=== PATIENT | male | born 1955 | race Caucasian/White ===

== ENCOUNTER 2017-08-24 11:47 | Outpatient (CLI) | payer OTHER ==
--- NOTE | 2017-08-24 15:05 | PET ---
NUCLEAR MEDICINE FDG PET CT: (Positron Emission Tomography) DATE: 08/24/17 HISTORY: 62-year-old male with solitary pulmonary nodule. COMPARISON: No prior PET scans or CTs of the chest are available. TECHNIQUE: IV injection F-18 Fluorodeoxyglucose (FDG) dose: 12.9 mCi. PET and attenuation-correction CT performed from skull base to proximal thighs. FINDINGS: SUV (standard uptake value) numbers given are maximum SUV's: There are sternotomy changes. There is mildly increased uptake in the retrosternal anterior upper med iastinum, posterior to the sternal manubrium and medial to the clavicular heads, with SUV of 2.8. It is presumed that the patient is recently status post open heart surgery, and it is assumed that this represents recent postoperative changes. The 10 mm round noncalcified right lower lobe pulmonary nodule is not hypermetabolic. It has a SUV of 1.0. There is a left pleural effusion that occupies approximately 25% volume of the left hemithorax. There is cardiomegaly. Heavy atherosclerotic calcification of left main, LAD, and LCX. Enlarged mediastina l lymph nodes without increased FDG uptake. Total atelectasis or left lower lobe surrounded by the pl eural effusion. Cholecystectomy clips. Moderate volume of free fluid within the pelvic cavity. Small amount of free fluid along the bilateral paracolic gutters. There is a peritoneal dialysis catheter c oiled within the pelvic cavity. Absent spleen. Rim calcified portion of the left fluid in the left up per quadrant. There is an ill-defined region of broad soft tissue attenuation surrounded by the free fluid at the pelvic inlet, at midline and to the left, with FDG uptakes higher than that of adjacent muscle and bowel, maximum SUV 1.9. It is uncertain whether this represents an inflammatory process que[place] ch as phlegmon, a hematoma, or bowel loops. The peritoneal catheter traverses this. There is no abno rmal FDG avidity in the neck or upper abdominal cavity. IMPRESSION: 1. The 10 mm right lower lobe solitary pulmonary nodule is not FDG-avid. 2. Moderate-sized left pleural effusion associated with total atelectasis of left lower lobe. 3. Coronary atherosclerotic disease. Status post coronary artery bypass graft surgery, probably rece nt. 4. Cardiomegaly. 5. Status post cholecystectomy. 6. Small to moderate volume of ascites. 7. Anasarca. 8. Ill-defined region of minimal FDG avidity within the lower peritoneal cavity (less than 3 SUV0. Nonspecific, and of unknown etiology. 9. Peritoneal dialysis catheter. 10. Status post splenectomy. TOI Kuhn POS: [facility]
== END 2017-08-24 11:48 | disposition home or self-care (01) ==
LOC: PET 11:47
DX: R91.1 Solitary pulmonary nodule (principal); J90 Pleural effusion, not elsewhere classified; R18.8 Other ascites; J98.11 Atelectasis; I51.7 Cardiomegaly; I25.10 Atherosclerotic heart disease of native coronary artery without angina pectoris; Z95.1 Presence of aortocoronary bypass graft; Z90.81 Acquired absence of spleen; Z90.49 Acquired absence of other specified parts of digestive tract; Z99.2 Dependence on renal dialysis
CPT/HCPCS: 78815; A9552

== ENCOUNTER 2018-01-10 14:22 | Emergency (ER) | payer BC, OTHER ==
[2018-01-10 15:08] LABS: #Eosinphils 0.2 thou/uL (0.0-0.7); #Lymphocytes 1.4 thou/uL (1.20-3.40); #Monocytes 0.5 thou/uL (0.11-0.59); #Neutrophils 8.1 thou/uL (1.40-6.50); %Basophils 0.1 % (0.0-1.0); %Eosinophils 1.5 % (0.0-10.0); %Lymphocytes 13.5 % (21.0-51.0); %Monocytes 5.3 % (0.0-10.0); %Neutrophils 79.6 % (42.0-75.0); Hemoglobin 11.8 g/dL (14.0-18.0); Mean Corpuscular HGB CONC 32.2 g/dL (32.0-36.0); Mean Corpuscular Hemoglobin 33.2 pg (27.0-31.0); Platelet Count 235 thou/uL (130-400); RBC Distribution Width 13.2 % (11.5-14.5); Red Blood Cell (RBC) Count 3.56 mill/uL (4.70-6.10); White Blood Cell (WBC) Count 10.1 thou/uL (4.8-10.8)
[2018-01-10 15:33] LABS: ALT (SGPT) 7 U/L (8-55); AST (SGOT) 9 U/L (5-34); Albumin 3.6 g/dL (3.4-4.8); Alkaline Phosphatase 50 U/L (40-150); Anion Gap 17 mmol/L (10-20); BUN (Urea Nitrogen) 64 mg/dL (8.4-25.7); Bilirubin, Total 0.5 mg/dL (0.2-1.2); Calc. Creatinine Clearance 0 mL/min (70-130); Calcium 8.8 mg/dL (7.8-10.44); Carbon Dioxide 22 mmol/L (23-31); Chloride 107 mmol/L (98-107); Estimated GFR-MDRD 7; Globulin 3.5 g/dL (2.4-3.5); Glucose 133 mg/dL (80-115); Lipase 45 U/L (8-78); Potassium 4.3 mmol/L (3.5-5.1); Protein, Total 7.1 g/dL (5.8-8.1); Sodium 142 mmol/L (136-145)
[2018-01-10 16:08] LABS: CKMB 2.4 ng/mL (0-6.6); Troponin I 0.055 ng/mL (< 0.028)
[2018-01-10 16:20] LABS: Magnesium 2.2 mg/dL (1.6-2.6); Phosphorus 6.3 mg/dL (2.3-4.7)
--- NOTE | 2018-01-10 17:29 | RAD ---
AP VIEW CHEST WELL SUPINE AND UPRIGHT VIEWS ABDOMEN: 01/10/18 HISTORY: Hypertension. AP view chest and two views abdomen obtained. Sternotomy wires seen. There is a left sided pleural effusion. Cardiomegaly seen. Pulmonary vascular congestion seen. There is an area of calcified density in the left upper quadrant of the abdomen. This may represent a possible splenic artery aneurysm. Correlate with contrast enhanced CT of the abdomen. Surgical clips seen in the right upper quadrant of the abdomen. The patient has an intraperitoneal dialysis catheter. Vascular calcifications also seen in the pelvis . Changes of spondylosis seen in the lumbar spine. The abdominal gas pattern is unremarkable. No evidence of free intraperitoneal air seen. IMPRESSION: 1. Left sided pleural effusion. 2. Peripherally dense area in the left upper quadrant of the abdomen concerning for possible ane urysm of the splenic artery. Correlate with CT abdomen. POS: [facility]
[2018-01-10] MEDS ORDERED: cloNIDine 0.1 MG TAB ONE (17:45)
[2018-01-10] MEDS ORDERED: Metoclopramide HCl 10 MG/2 ML VIAL ONE (17:45)
[2018-01-10] MEDS ORDERED: Metoclopramide HCl 10 MG TAB ONE (18:23)
[2018-01-10 18:34] LABS: Bilirubin Negative (Negative); Blood, Urine Large (Negative); Clarity CLOUDY (Clear); Glucose, Urine (Dipstick) Negative (Negative); Leukocyte Trace (Negative); Nitrite Negative (Negative); Protein, Urine (Dipstick) 300 mg/dL (Neg-Trace); Specific Gravity, Urine 1.015 (1.002-1.036); Urobilinogen 0.2 mg/dL (0.2-1.0); pH, Urine 5.5 (5.0-9.0)
[2018-01-10 18:42] LABS: Bacteria/HPF None Seen HPF (None Seen); Hyaline Casts/LPF 0-3 HYALINE CAST LPF (0-3 Hyaline); Pathc Cast-AUWi Flag 0.58 (0-2.49); RBC/HPF GREATER THAN 50-TNTC HPF (0-3); Squamous Epithelial 0-3 HPF (0-3)
== END 2018-01-10 18:32 | disposition home or self-care (01) ==
LOC: ERS 14:22
DX: R11.2 Nausea with vomiting, unspecified (principal); E11.9 Type 2 diabetes mellitus without complications; I10 Essential (primary) hypertension; G47.30 Sleep apnea, unspecified; Z79.4 Long term (current) use of insulin; Z79.899 Other long term (current) drug therapy
CPT/HCPCS: 36415; 74022; 80053; 81003; 81015; 82553; 83690; 83735; 83880; 84100; 84484; 85025; 93005; 96374; J2765

== ENCOUNTER 2018-05-29 10:26 | Outpatient (CLI) | payer OTHER ==
--- NOTE | 2018-05-29 11:51 | ULT ---
RENAL ULTRASOUND: Comparison: 02-17-15 History: Hematuria. Technique: Multiplanar grayscale and color doppler images were obtained in a renal ultrasound. FINDINGS: There are anechoic cysts in the left kidney measuring up to 1.8 cm in size. The kidneys demonstrate n ormal cortical echogenicity without hydronephrosis or calculi and measure 11.1 and 10.2 cm in length on the right and left, respectively. Limited visualization of the urinary bladder is unremarkable. Ascites is incidentally seen. IMPRESSION: Left renal cysts. POS: [facility]
== END 2018-05-29 10:27 | disposition home or self-care (01) ==
LOC: BICULT 10:26
PROVIDERS: ATTEND Internal Medicine Nephrology
DX: R31.9 Hematuria, unspecified (principal); N28.1 Cyst of kidney, acquired
CPT/HCPCS: 76770

== ENCOUNTER 2018-07-30 21:12 | Inpatient (IN) | payer OTHER, MEDICARE ==
--- NOTE | 2018-07-30 21:30 | RAD ---
PORTABLE CHEST 1 VIEW 07/30/2018 at 9:16 PM HISTORY: Shortness of breath, dyspnea, patient on dialysis COMPARISON: 04/20/2016 FINDINGS: Changes of median sternotomy are seen. The heart size is prominent. There is an infiltrate at the lef t lung base with accompanying effusion. No pneumothoraces are identified. There is no martha pulmonary edema.
[2018-07-30 21:42] LABS: #Eosinphils 0.1 thou/uL (0.0-0.7); #Lymphocytes 1.5 thou/uL (1.20-3.40); #Monocytes 0.7 thou/uL (0.11-0.59); #Neutrophils 8.5 thou/uL (1.40-6.50); %Eosinophils 0.9 % (0.0-10.0); %Lymphocytes 13.8 % (21.0-51.0); %Monocytes 6.7 % (0.0-10.0); %Neutrophils 78.5 % (42.0-75.0); Hemoglobin 9.6 g/dL (14.0-18.0); Mean Corpuscular HGB CONC 32.3 g/dL (32.0-36.0); Mean Corpuscular Hemoglobin 32.4 pg (27.0-31.0); Mean Platelet Volume 9.7 fL (7.4-10.4); Platelet Count 292 thou/uL (130-400); RBC Distribution Width 12.5 % (11.5-14.5); Red Blood Cell (RBC) Count 2.96 mill/uL (4.70-6.10); White Blood Cell (WBC) Count 10.8 thou/uL (4.8-10.8)
[2018-07-30 22:00] LABS: Anion Gap 17 mmol/L (10-20); BUN (Urea Nitrogen) 47 mg/dL (8.4-25.7); Calc. Creatinine Clearance 0 mL/min (70-130); Calcium 8.5 mg/dL (7.8-10.44); Carbon Dioxide 30 mmol/L (23-31); Chloride 98 mmol/L (98-107); Estimated GFR-MDRD 5; Glucose 128 mg/dL (80-115); Sodium 142 mmol/L (136-145)
[2018-07-30 22:02] LABS: Potassium 2.6 mmol/L (3.5-5.1)
[2018-07-30] MEDS ORDERED: Pot Chloride/Pot Bicarb/Cit Ac 25 mEq Effervescent Tablet ONE (22:14)
[2018-07-30 22:25] LABS: CKMB 3.3 ng/mL (0-6.6)
[2018-07-30] MEDS ORDERED: Azithromycin 500 MG VIAL ONE (23:25)
[2018-07-30] MEDS ORDERED: cefTRIAXone\\ROCEPHIN 2 GM VIAL ONE (23:25)
[2018-07-31] MEDS ORDERED: Aspirin Chewable 81 MG TAB ONE
[2018-07-31] MEDS ORDERED: Ondansetron PF 4 MG/2 ML Vial IVP PRN ×2 (00:44→11:39)
[2018-07-31] MEDS ORDERED: Acetaminophen 325 MG TAB PO PRN ×2 (00:44→11:39)
[2018-07-31] MEDS ORDERED: Ondansetron ODT 4 MG TAB SL PRN (00:44)
[2018-07-31 00:51] LABS: Troponin I 0.249 ng/mL (< 0.028)
[2018-07-31 06:07] LABS: Troponin I 0.236 ng/mL (< 0.028)
[2018-07-31 08:15] LABS: Magnesium 1.2 mg/dL (1.6-2.6)
[2018-07-31 08:24] LABS: Potassium 2.8 mmol/L (3.5-5.1)
[2018-07-31] MEDS ORDERED: Potassium Chloride 20 MEQ TAB PO SCH (08:30)
[2018-07-31] MEDS ORDERED: Epoetin (ESRD) 20,000 UNITS/ML SC SCH (08:45)
[2018-07-31] MEDS ORDERED: EPOETIN ALFA-EPBX (ESRD) 10,000 UNIT/ML VIAL SC SCH (09:00)
[2018-07-31] MEDS ORDERED: Prevnar 13-Val Conj/PF 0.5 ML SYRINGE IM ONE (09:00)
--- NOTE | 2018-07-31 10:17 | CON ---
DATE OF CONSULTATION: HISTORY OF PRESENT ILLNESS: Mr. Lau he is a 62-year-old white male with known history of ESRD, currently on peritoneal dialysis and was admitted for shortness of breath. The shortness of breath has been ongoing for the last 1 week. He describes this as sudden shortness of breath usually at night. He denies any associated chest pain with this. We saw him at the dialysis unit yesterday. At that time, the exam was relatively benign. He was instructed to go to the ER if he develops any shortness of breath, which he did. The initial chest x-ray did not show a martha pulmonary edema, but showed an infiltrate. We are now being consulted for his maintenance peritoneal dialysis. REVIEW OF SYSTEMS: Positive for shortness of breath. No chest pain. Denies any fever or chills. Denies any productive cough. No diarrhea. No constipation. No abdominal pain. No hematochezia. No melena. No hematemesis. No syncopal episode. Occasional joint pains. No dysuria. HOME MEDICATIONS: Included hydralazine 100 mg p.o. t.i.d., clonidine 0.1 mg q.6h p.r.n., tamsulosin 0.4 mg daily, pravastatin 20 mg tablet nightly, Protonix 40 mg q.a.m., omega-3 1 capsule b.i.d., nifedipine 90 mg XL tab q.a.m., metoprolol tartrate 25 mg p.o. b.i.d., levothyroxine 150 mcg daily, Isordil 40 mg p.o. b.i.d., NovoLog insulin 70/30 as directed, Trulicity 1.5 mg subcutaneous q.7 days, clopidogrel 75 mg once a day, and aspirin 325 mg tablet once a day. PAST MEDICAL HISTORY: Coronary artery disease status post CHF, hypothyroidism, ESRD from diabetic nephropathy, type 2 diabetes mellitus, hyperlipidemia, BPH, and GERD, history of status post TIA, status post non ST elevation IA and history of pancreatic cancer, tail of pancreas, in remission. PAST SURGICAL HISTORY: Status post resection of the tail of the pancreas, status post splenectomy, status post cholecystectomy, status post PD catheter placement , status post surgical repair of the right leg fracture, status post upper and lower GI endoscopy, status post incisional ventral hernia repair, and status post cuffed hemodialysis catheter placement and status post CABG and status post cardiac cath. SOCIAL HISTORY: The patient is single, lives in [place] with his daughter. No history of smoking. No alcohol intake. He has an educational GEE, status post blood transfusion. No IV drug abuse. Active lifestyle. ALLERGIES: NONE. TRAUMA: Status post right leg fracture. IMMUNIZATION: Up-to-date. HOSPITALIZATIONS: Please see past medical history. FAMILY HISTORY: No family history of ESRD. PHYSICAL EXAMINATION: VITAL SIGNS: Blood pressure is 103/53, heart rate 60, respiratory rate 20, temperature 97.9, and pulse oximetry 94%. GENERAL: Noted to be awake, supine, comfortable, obese, not in distress. SKIN: Adequate turgor. HEENT: Slightly pale conjunctivae. Anicteric sclerae. No neck mass. No carotid bruits. No JVD. CHEST: No deformities. LUNGS: Clear breath sounds. No wheezing. No crackles. HEART: Normal sinus rhythm. Grade 2/6 systolic murmur. No gallops. No rubs. Occasional skipped beats. ABDOMEN: Globular, soft, nontender. No masses. Positive for PD catheter. EXTREMITIES: No edema. No deformities. NEUROLOGIC: Awake, oriented to 3 spheres. Moving all extremities. No tremors. No asterixis. No ataxia. LABORATORY DATA: July 30, 2018; white count 10.8, hemoglobin 9.6. Potassium is 2.8, magnesium is 1.2. Troponin I 0.236. July 30, 2018 at 2132 hours, sodium 142, potassium 2.6, chloride 98, carbon dioxide is 30, BUN 47, creatinine 10.9, [place] [address]. Troponin I 0.236. ASSESSMENT AND PLAN: 1. End stage renal disease, we will adjust the peritoneal dialysis fluid. Consider using a 4.25% peritoneal dialysis solution to enhance ultrafiltration. Chest x- ray did not show martha pulmonary edema, but showed some increased lung markings. We will try to remove extra fluid with peritoneal dialysis tonight. 2. Shortness of breath, consider the possibility of a pulmonary edema secondary to ischemic etiology. Cardiology has been consulted. 3. Anemia. We will resume back Epogen 28092 units subcutaneous q.week. Add ferrous sulfate 325 mg p.o. b.i.d. 4. Review of his last KT/V suggests he is not adequately dialyzed with the current dialysis regimen. My plan is to continue current peritoneal dialysis and adjust as needed. Thank you for the consult. We will continue to follow. Job ID: [id number] [facility] CENTERAdelia
[2018-07-31] MEDS ORDERED: Senokot S 8.6-50 MG TAB PO PRN (11:39)
[2018-07-31] MEDS ORDERED: Ondansetron ODT 4 MG TAB PO PRN (11:39)
[2018-07-31] MEDS ORDERED: Nitroglycerin 0.4 MG TAB (25 Tab Bottle) PO PRN (11:39)
[2018-07-31] MEDS ORDERED: Calcium Carbonate 500 MG ChewTAB PO PRN (11:39)
[2018-07-31] MEDS: Potassium Chloride 20 MEQ TAB PO SCH ×2 (11:47→17:26)
[2018-07-31] MEDS ORDERED: Epoetin (NON-ESRD) 20,000 UNITS/ML ML SC SCH (12:00)
--- NOTE | 2018-07-31 12:07 | HP ---
PRIMARY CARE PHYSICIAN: Dr. Abdullahi Rome. PRIMARY FIELD REPRESENTATIVES DIRECTOR: Dr. Brooks. CHIEF COMPLAINT: Shortness of breath. HISTORY OF PRESENT ILLNESS: The patient is a 62-year-old man with end-stage renal disease, on peritoneal dialysis; coronary artery disease status post CABG; hypertension; and hypothyroidism, presented to the emergency room with above complaints. Over the last 2 weeks, the patient has shortness of breath that is progressively getting worse. It got worse last night. He had difficulty lying down flat. He also noticed bilateral lower extremity swelling. The patient was getting short of breath on minimal exertion. The patient is currently on peritoneal dialysis per Dr. Brooks. He denies any chest pain, palpitations, lightheadedness, dizziness, syncope, fever, chills, cough, recent immobilization, or travel. In the emergency room, his initial vital signs showed temperature 98.1, pulse rate of 50, blood pressure of 97/53 with O2 saturation 89% on room air. His EKG showed sinus rhythm with premature ventricular complexes. Chest x-ray showed possible left lung base infiltrate with effusion. There was no pulmonary edema. He received aspirin, azithromycin, ceftriaxone with potassium in the emergency room. Please note, the patient currently does not take aspirin. PAST MEDICAL HISTORY: 1. End-stage renal disease, on peritoneal dialysis. 2. Obstructive sleep apnea. 3. Hyperlipidemia. 4. Coronary artery disease status post CABG. 5. Hypothyroidism. 6. Diabetes mellitus, type 2, with diabetic nephropathy. 7. History of pancreatic cancer status post partial resection. 8. History of TIA in the past. PAST SURGICAL HISTORY: 1. Left thyroid lobectomy. 2. Isthmusectomy. 3. Partial pancreatectomy with splenectomy. 4. Cholecystectomy. 5. ORIF of right tibia-fibula for fractures. 6. Incision and drainage of abdominal abscess. 7. Coronary artery bypass grafting. ALLERGIES: NO KNOWN DRUG ALLERGIES. CURRENT HOME MEDICATIONS: 1. Carvedilol 12.5 mg b.i.d. 2. Levothyroxine 150 mcg daily. 3. Losartan 100 mg daily. 4. Procardia XL 90 mg daily. 5. Protonix 40 mg daily. 6. Pravastatin 20 mg nightly. 7. Ambien 10 mg as needed. 8. Hydralazine 100 mg 3 times daily. SOCIAL HISTORY: The patient currently lives at home with his family. He is . He is a full code. FAMILY HISTORY: Father with pancreatic cancer. Mother with diabetes and heart disease. REVIEW OF SYSTEMS: All other review of systems were reviewed and were found negative. PHYSICAL EXAMINATION: VITAL SIGNS: As discussed above. GENERAL: A 62-year-old male, sitting on the chair. The patient is in no significant respiratory distress. HEENT: Head, atraumatic and normocephalic. Sclerae anicteric. Moist mucous membranes. No oral lesion. NECK: Supple. No JVD appreciated. No carotid bruit. LUNGS: Diminished air entry at bilateral bases, mainly on the right, with scattered rales especially at right base. HEART: S1 and S2 present. Regular rate and rhythm. No rubs or gallops appreciated. There is a 2/6 systolic murmur over the aortic area. ABDOMEN: Soft and nontender. Bowel sounds present. EXTREMITIES: 2+ edema in bilateral lower extremities. No calf tenderness. SKIN: Warm and dry. LYMPH NODES: No palpable lymph nodes in the neck. PERIPHERAL VASCULAR: Radial pulses palpable bilaterally. MUSCULOSKELETAL: No joint swelling or tenderness. LABORATORY FINDINGS: CBC showed WBC 10.8 with hemoglobin 9.6, hematocrit 29.7, and platelets 292. Chemistry showed sodium 142, potassium 2.6, chloride 98, bicarb 30, BUN 47, and creatinine 10.9. BNP was 12,142. Troponin 0.274 with normal CK-MB. Repeat potassium this morning was 2.8. Chest x-ray by my review as discussed above. Blood culture so far has been negative. EKG by my review as discussed above. IMPRESSION: 1. Acute hypoxic respiratory failure secondary to suspected left lung base pneumonia, questionable pneumococcal. Rule out congestive heart failure. 2. Hypokalemia. 3. Type 2 myocardial infarction. 4. Hypomagnesemia. 5. Macrocytic anemia. 6. Generalized weakness, multifactorial. 7. Coronary artery disease status post coronary artery bypass graft. 8. Hypertension. 9. Hypothyroidism. 10. Hyperlipidemia. 11. Benign prostatic hypertrophy. 12. History of transient ischemic attack. 13. History of pancreatic cancer. PLAN: The patient will be monitored on the telemetry unit. Echocardiogram will be obtained. We will rule out DVT due to bilateral lower extremity edema. We will replace electrolytes. Recheck labs in a.m. We will check folic acid and vitamin B12. Cardiology and Nephrology consultation. Resume selected home medications. Plan of care was discussed with the patient in detail. He stated understanding. Job ID: [id number]
[2018-07-31] MEDS ORDERED: Magnesium 2 GM/50 ML 2 GM in Premix Bag 1 BAG IVPB SCH (12:30)
--- NOTE | 2018-07-31 12:41 | RAD ---
PA AND LATERAL CHEST: Indication: History of shortness of breath, pneumonia. Comparison: Single view of the chest, 07-30-18. FINDINGS: There is some improved aeration of the left lower lobe, however, a small to moderate left pleural eff usion remains. There is some residual airspace consolidation in the left lower lobe. Right lung is cl ear. Cardiomegaly persists. Midline sternotomy changes are stable. Chronic osseous changes are simila r appearing. IMPRESSION: 1. Improving airspace opacity in the left lower lobe may reflect improving pneumonia or atelectasis. 2. Small left pleural effusion, decreased in size from the prior exam. 3. Persistent cardiomegaly. POS: [facility]
[2018-07-31] MEDS: hydrALAZINE 25 MG TAB PO SCH ×2 (14:21→20:37)
--- NOTE | 2018-07-31 14:22 | ULT ---
BILATERAL LOWER EXTREMITY VENOUS DUPLEX ULTRASOUND INCLUDING COLOR AND SPECTRAL DOPPLER IMAGING: Date: 07/31/18 HISTORY: Bilateral lower extremity edema. TECHNIQUE: Exam performed from groin to ankle including visualized greater saphenous, common femoral, superficia l femoral, profunda femoral, popliteal, trifurcation, and posterior tibial vein regions. FINDINGS: There is some extensive subcutaneous edema. There is nonobstructing intraluminal thrombus noted withi n the greater saphenous vein. The deep venous system, including the common femoral, superficial femor al, popliteal trifurcation, and posterior tibial veins are all patent and demonstrate normal phasic f low. IMPRESSION: Nonobstructing thrombus within the greater saphenous vein. No evidence for deep venous thrombosis. POS: [facility]
[2018-07-31] MEDS: Ferrous Sulfate 325 MG TAB PO SCH (17:26)
[2018-07-31] MEDS: Carvedilol 6.25 MG TAB PO SCH (20:35)
[2018-07-31] MEDS: Simvastatin 5 MG TAB PO SCH (20:36)
[2018-07-31] MEDS: Heparin 5,000 UNITS/ML VIAL SC SCH (20:37)
--- NOTE | 2018-07-31 21:01 | CON ---
DATE OF CONSULTATION: 07/31/2018 REASON FOR CONSULTATION: Heart failure. HISTORY OF PRESENT ILLNESS: Mr. Lau is a pleasant 62-year-old white gentleman, who comes to the hospital for increased shortness of breath. He states for the last week, he was noticing worsening shortness of breath to the point where he was unable to lay flat on his back without feeling short winded and coughing. He came into the hospital. He has end-stage renal disease and is on peritoneal dialysis on a daily basis. He did miss peritoneal dialysis last night as he came in. He did not get dialyzed until this evening. Currently, his breathing is unchanged. He denies any chest pain, tightness, or pressure. Only this shortness of breath. He thinks he may have drank a little bit more fluid than normal. He denies any infectious issues that he can tell. PAST MEDICAL HISTORY: 1. End-stage renal disease, on peritoneal dialysis. 2. Obstructive sleep apnea. 3. Hyperlipidemia. 4. Coronary artery disease. 5. Ascending aortic aneurysm. 6. Type 2 diabetes. 7. Pancreatic cancer, status post resection. 8. History of TIA in the past. SURGICAL HISTORY: 1. Left thyroid lobectomy. 2. Mastectomy. 3. Partial pancreatectomy with splenectomy. 4. Cholecystectomy. 5. Right tibia and fibula fractured ORIF. 6. Incision and drainage abdominal access. 7. Coronary artery bypass grafting. 8. Ascending aortic root repair with aortic valve replacement. OUTPATIENT MEDICATIONS: 1. Coreg 12.5 mg b.i.d. 2. Levothyroxine 150 mcg a day. 3. Losartan 100 mg a day. 4. Procardia XL 90 mg a day. 5. Protonix 40 mg a day. 6. Pravastatin 20 mg a day. 7. Ambien 10 mg at bedtime. 8. Hydralazine 100 mg 3 times a day. SOCIAL HISTORY: Lives at home. FAMILY HISTORY: Father with pancreatic cancer. Mother with diabetes and heart disease. REVIEW OF SYSTEMS: A 12-point review of systems was done and was found to be negative unless stated in the history of present illness. PHYSICAL EXAMINATION: VITAL SIGNS: Temperature 97.9, pulse 64, respiratory rate 20, saturation 94% on room air, and blood pressure 126/59. GENERAL: Awake, alert, oriented x3. No distress. HEENT: Normocephalic and atraumatic. NECK: Supple. LUNGS: Reduced breath sounds at the bases. CARDIOVASCULAR: S1 and S2. There is a grade 2/6 systolic murmur at the right upper sternal border. ABDOMEN: Soft. Positive bowel sounds. EXTREMITIES: 1+ edema. SKIN: Warm and dry. DIAGNOSTIC DATA: Chest x-ray showed small left pleural effusion, cardiomegaly, increased airspace opacities. Lower extremity venous ultrasound shows nonocclusive thrombus in the greater saphenous vein. LABORATORY WORK: White count of 10, hemoglobin 9.6, hematocrit 29, platelet count 292. Chemistry with a potassium of 2.0. Troponin is in the indeterminate range x3. BNP was 81188 range. Glucose was 111. ASSESSMENT AND PLAN: 1. Ywynr-ni-rwzhlns systolic heart failure. EF on the last visit at 40% to 45%. 2. End-stage renal disease. 3. Volume overload, likely from too much fluid and dietary indiscretions. 4. End-stage renal disease, on peritoneal dialysis. PLAN: 1. He will get dialyzed today by Dr. Brooks, with increased dialysis for fluid removal. 2. Once he is able to lay flat, we would send him for a CT per PE protocol to make sure that the nonocclusive thrombus in his lower extremities did not make him through a PE, and that is why he is so short winded. 3. No evidence of an acute coronary syndrome at this time. Thank you for letting me to participate in the care of your patient. We will follow. Job ID: [id number]
[2018-07-31] MEDS: Doxycycline 100 MG CAP PO SCH (21:26)
[2018-07-31] MEDS: cefTRIAXone\\ROCEPHIN 1 GM in Sodium Chloride 0.9% 100 ML IVPB SCH (21:26)
[2018-08-01 05:50] LABS: #Eosinphils 0.2 thou/uL (0.0-0.7); #Lymphocytes 1.3 thou/uL (1.20-3.40); #Monocytes 0.9 thou/uL (0.11-0.59); #Neutrophils 8.6 thou/uL (1.40-6.50); %Basophils 0.4 % (0.0-1.0); %Eosinophils 1.5 % (0.0-10.0); %Lymphocytes 11.8 % (21.0-51.0); %Monocytes 8.3 % (0.0-10.0); Hemoglobin 8.9 g/dL (14.0-18.0); Mean Corpuscular HGB CONC 32.2 g/dL (32.0-36.0); Mean Corpuscular Hemoglobin 32.5 pg (27.0-31.0); Mean Platelet Volume 10.5 fL (7.4-10.4); Platelet Count 278 thou/uL (130-400); RBC Distribution Width 12.7 % (11.5-14.5); Red Blood Cell (RBC) Count 2.74 mill/uL (4.70-6.10)
[2018-08-01 05:57] LABS: Anion Gap 15 mmol/L (10-20); BUN (Urea Nitrogen) 51 mg/dL (8.4-25.7); Calc. Creatinine Clearance 9 mL/min (70-130); Calcium 8.2 mg/dL (7.8-10.44); Carbon Dioxide 32 mmol/L (23-31); Cardiac Risk 4.3 (Less than 4.5); Chloride 99 mmol/L (98-107); Cholesterol 95 mg/dl (< 200 Desired); Estimated GFR-MDRD 5; Glucose 144 mg/dL (80-115); HDL Cholesterol 22 mg/dL (>60 Neg Risk); LDL Cholesterol, Calculated 59 mg/dL; Potassium 3.3 mmol/L (3.5-5.1); Sodium 143 mmol/L (136-145); Triglycerides 72 mg/dL (Less than 150)
[2018-08-01] MEDS: Levothyroxine 150 MCG TAB PO SCH (06:09)
[2018-08-01 06:30] LABS: Folate (Folic Acid) 2.3 ng/mL (7.0-31.4)
--- NOTE | 2018-08-01 09:03 | PRG ---
DATE OF SERVICE: 08/01/2018 SUBJECTIVE: Mr. Lau is a 62-year-old white male with ESRD and being followed up by the [facility]al Service for his maintenance peritoneal dialysis. Initially came in with shortness of breath secondary to a presumed CHF. Adjustment of his peritoneal fluid was done. This morning, he is feeling better. He is less short of breath. Denies any chest pain. OBJECTIVE: VITAL SIGNS: Blood pressure is 106/53, heart rate 59, respiratory rate 20, temperature 97.8, and pulse oximetry 97%. GENERAL: Noted to be awake, alert, comfortable, supine, not in distress. SKIN: Adequate turgor. HEENT: He has slightly pale conjunctivae. Anicteric sclerae. NECK: No neck mass. No carotid bruits. No JVD. CHEST: No deformities. LUNGS: Decreased breath sounds. HEART: Normal sinus rhythm. No murmur. No gallops. No rubs. ABDOMEN: Globular, soft, nontender. No masses. EXTREMITIES: No edema, no deformities. MEDICATIONS: Of August 01, 2018, reviewed. LABORATORIES: Of August 01, 2018; white count 11, hemoglobin 8.9, sodium 143, potassium 3.3, chloride 99, carbon dioxide 22, BUN 51, creatinine 11.28, glucose 144, calcium 8.2, magnesium 2.0. C-reactive protein 7.34, folate 2.3, vitamin B12 359. ASSESSMENT AND PLAN: 1. Congestive heart failure, clinically much improved. Adjustment of his peritoneal dialysis. Denies any shortness of breath. 2. End-stage renal disease, stable. We will continue current peritoneal dialysis regimen. Tolerating said treatment. 3. Anemia, continuing weekly Epogen and iron supplementation. 4. Overall agree with current management and recheck basic metabolic panel and CBC in a.m. Job ID: [id number]
[2018-08-01] MEDS: Ferrous Sulfate 325 MG TAB PO SCH ×2 (09:24→17:55)
[2018-08-01] MEDS: Doxycycline 100 MG CAP PO SCH ×2 (09:25→22:17)
[2018-08-01] MEDS: NIFEdipine XL 90 MG TAB PO SCH (09:26)
[2018-08-01] MEDS: Losartan 25 MG TAB PO SCH ×2 (09:28→09:33)
[2018-08-01] MEDS: Carvedilol 6.25 MG TAB PO SCH ×2 (09:29→22:18)
[2018-08-01] MEDS: hydrALAZINE 25 MG TAB PO SCH ×3 (09:29→22:18)
[2018-08-01] MEDS: Heparin 5,000 UNITS/ML VIAL SC SCH ×2 (09:35→22:16)
--- NOTE | 2018-08-01 11:46 | PDOC.PN ---
- Subjective Encounter Start Date: 08/01/18 Encounter Start Time: 11:45 Subjective: SOB is slightly improved. No difference if at rest or with exertion. -: Denies any chest pain. Afebrile. No n/v. Tolerating oral intake. -: Denies any abdominal pain. Moving his bowels as normal. S/p venogram showing a noncclusive thrombus within greater saphenous vein. No lower leg pain. Slight edema, left greater than right. - Objective Resuscitation Status - Order Detail: 07/31/18 11:39 Resuscitation Status Routine Resuscitation Status: FULL: Full Resuscitation Vital Signs & Weight: Vital Signs (12 hours) Temp Pulse Resp BP BP Pulse Ox 08/01/18 09:29 75 120/58 L 08/01/18 09:26 75 08/01/18 07:55 97.8 F 75 18 120/58 L 93 L 08/01/18 06:48 96 08/01/18 03:55 97.8 F 59 L 20 106/53 L 97 Weight Admit Weight 215 lb 4 oz Weight 218 lb 3 oz I&O: 07/31/18 08/01/18 08/02/18 06:59 06:59 06:59 Intake Total 490 630 Output Total 0 0 Balance 490 630 Result Diagrams: 08/01/18 05:06 08/01/18 05:06 Additional Labs: Accuchecks 08/01/18 08/01/18 07/31/18 11:14 06:03 20:15 POC Glucose 155 H 137 H 190 H 07/31/18 16:44 POC Glucose 138 H Phys Exam - Physical Examination Constitutional: NAD HEENT: PERRLA, sclera anicteric oral mucosa dry Neck: no nodes, full ROM Respiratory: no wheezing, no rales, no rhonchi, clear to auscultation bilateral reduced breath sound at left lung base Cardiovascular: RRR, no significant murmur Gastrointestinal: soft, non-tender, no distention, positive bowel sounds edema in lower legs bialterally, left>right, no calf tenderness Neurological: non-focal Psychiatric: A&O x 3 Deviation from normal: flat affect Dx/Plan (1) Shortness of breath Code(s): R06.02 - SHORTNESS OF BREATH Status: Acute (2) Suspected pulmonary embolism Code(s): R09.89 - OTH SYMPTOMS AND SIGNS INVOLVING THE CIRC AND RESP SYSTEMS Status: Acute (3) Pleural effusion Code(s): J90 - PLEURAL EFFUSION, NOT ELSEWHERE CLASSIFIED Status: Acute (4) End stage renal disease Code(s): N18.6 - END STAGE RENAL DISEASE Status: Chronic (5) Hypertension Code(s): I10 - ESSENTIAL (PRIMARY) HYPERTENSION Status: Chronic (6) Folate deficiency Code(s): E53.8 - DEFICIENCY OF OTHER SPECIFIED B GROUP VITAMINS Status: Acute - Plan cont current plan of care Patient continues to be unable to lay supine due to SOB. -: For HD later today. -: CTA to rule out PE on hold until patient able to lay supine. -: Hb 8.9, vit b12 normal with folate deficiency. Folate 1 mg daily. -: Monitor H/H. No s/s of bleeding. Check stool for occult blood. Dr. iPneda aware and in agreement with plan as above.
[2018-08-01] MEDS: Aspirin 325 mg Enteric Coated Tablet PO SCH (12:57)
--- NOTE | 2018-08-01 19:21 | PDOC.CTH ---
Cardiology Progress Note - Subjective Feeling better. Breathing better. - Objective Vital Signs Temp Pulse Resp BP BP Pulse Ox 08/01/18 17:55 63 08/01/18 16:00 98.0 F 57 L 18 108/55 L 94 L 08/01/18 12:00 98.2 F 57 L 18 121/58 L 92 L 08/01/18 09:29 75 120/58 L 08/01/18 09:26 75 08/01/18 08:00 93 L 08/01/18 07:55 97.8 F 75 18 120/58 L 93 L Admit Weight 215 lb 4 oz Weight 218 lb 3 oz 07/31/18 08/01/18 08/02/18 06:59 06:59 06:59 Intake Total 490 630 Output Total 0 0 Balance 490 630 - Physical Examination General/Neuro: alert & oriented x3, NAD Neck: no JVD present Lungs: CTA, unlabored respirations Heart: RRR Abdomen: NT/ND Extremities: + edema B (1+) - Telemetry Telemetry Rhythm: NSR - Labs Result Diagrams: 08/01/18 05:06 08/01/18 05:06 Troponin/CKMB CK-MB (CK-2) 3.3 ng/mL (0-6.6) 07/30/18 21:32 Troponin I 0.236 ng/mL (< 0.028) H 07/31/18 05:03 - Assessment/Plan 1. ESRD 2. Volume overload 3. Acute on chronic diastolic heart failure. 4. S/P AVR 5. S/P CABG 6. S/P Aortic root replacement. PLAN: - Continue PD. - Continue other meds.
[2018-08-01] MEDS: Simvastatin 5 MG TAB PO SCH (22:17)
[2018-08-01] MEDS: Zolpidem Tartrate 5 MG TAB PO PRN (22:17)
[2018-08-01] MEDS: cefTRIAXone\\ROCEPHIN 1 GM in Sodium Chloride 0.9% 100 ML IVPB SCH (22:21)
[2018-08-02 05:44] LABS: #Basophils 0.1 thou/uL (0.0-0.2); #Eosinphils 0.3 thou/uL (0.0-0.7); #Lymphocytes 1.7 thou/uL (1.20-3.40); #Monocytes 0.8 thou/uL (0.11-0.59); #Neutrophils 8.4 thou/uL (1.40-6.50); %Eosinophils 2.2 % (0.0-10.0); %Lymphocytes 15.2 % (21.0-51.0); %Monocytes 7.3 % (0.0-10.0); %Neutrophils 74.2 % (42.0-75.0); Hemoglobin 8.6 g/dL (14.0-18.0); Mean Corpuscular HGB CONC 32.4 g/dL (32.0-36.0); Mean Corpuscular Hemoglobin 32.6 pg (27.0-31.0); Mean Platelet Volume 10.6 fL (7.4-10.4); Platelet Count 265 thou/uL (130-400); RBC Distribution Width 12.7 % (11.5-14.5); Red Blood Cell (RBC) Count 2.62 mill/uL (4.70-6.10); White Blood Cell (WBC) Count 11.3 thou/uL (4.8-10.8)
[2018-08-02] MEDS: Levothyroxine 150 MCG TAB PO SCH (05:53)
[2018-08-02 06:04] LABS: Anion Gap 18 mmol/L (10-20); BUN (Urea Nitrogen) 50 mg/dL (8.4-25.7); Calc. Creatinine Clearance 9 mL/min (70-130); Calcium 8.1 mg/dL (7.8-10.44); Carbon Dioxide 27 mmol/L (23-31); Chloride 99 mmol/L (98-107); Estimated GFR-MDRD 5; Glucose 125 mg/dL (80-115); Sodium 141 mmol/L (136-145)
[2018-08-02 06:08] LABS: Potassium 2.8 mmol/L (3.5-5.1)
[2018-08-02] MEDS ORDERED: Potassium Chloride 20 MEQ TAB PO SCH (06:30)
[2018-08-02] MEDS: Aspirin 325 mg Enteric Coated Tablet PO SCH (08:43)
[2018-08-02] MEDS: Doxycycline 100 MG CAP PO SCH ×2 (08:43→21:10)
[2018-08-02] MEDS: Potassium Chloride 20 MEQ TAB PO SCH ×2 (08:43→21:11)
[2018-08-02] MEDS: Folic Acid 1 MG TAB PO SCH (08:44)
[2018-08-02] MEDS: Carvedilol 6.25 MG TAB PO SCH ×2 (08:44→21:08)
[2018-08-02] MEDS: Ferrous Sulfate 325 MG TAB PO SCH ×2 (08:44→17:41)
[2018-08-02] MEDS: hydrALAZINE 25 MG TAB PO SCH ×3 (08:44→21:10)
[2018-08-02] MEDS: NIFEdipine XL 90 MG TAB PO SCH (08:47)
--- NOTE | 2018-08-02 10:10 | PRG ---
DATE OF SERVICE: 08/02/2018 SUBJECTIVE: Mr. Lau is a 62-year-old white male, who was admitted for shortness of breath and being followed by the [facility] for his maintenance peritoneal dialysis. Due to the relatively lower blood pressure last night, I decided to use a 1.5% PD solution to minimize ultrafiltration that night. This morning, he continues to feel better. His shortness of breath is much improved. He did not have any acute exacerbation of the shortness of breath last night. Cardiology is also following the patient. OBJECTIVE: VITAL SIGNS: Blood pressure is 112/57, heart rate 64, respiratory rate 20, temperature 98.5, pulse ox 100%. GENERAL: Noted to be awake, alert, comfortable, not in distress. SKIN: Adequate turgor. HEENT: He has pinkish conjunctivae. Anicteric sclerae. NECK: No neck mass. No carotid bruits. No JVD. CHEST: No deformities. LUNGS: Clear breath sounds. HEART: Normal sinus rhythm. No murmur. No gallops. No rubs. ABDOMEN: Globular, soft, and nontender. No masses. Positive for PD catheter. EXTREMITIES: No edema. No deformities. MEDICATIONS: Medications of August 02, 2018, were reviewed. LABORATORY DATA: Laboratories of August 02, 2018: White count 11.2, hemoglobin 8.6. Sodium 141, potassium 2.8, chloride 99, carbon dioxide 27, BUN 50, creatinine 11.5, glucose 125, calcium 8.1. ASSESSMENT AND PLAN: 1. End-stage renal disease, stable. Continue current peritoneal dialysis. Adjust PD solution depending what the blood pressure is. If his blood pressure is better tonight, we will go back to the 2.5% PD solution. 2. Congestive heart failure, clinically much improved. Continue PD regimen. Cardiology is following. 3. Anemia, on weekly Epogen and iron supplementation. 4. Hypokalemia, p.r.n. potassium replacement. 5. We will be rechecking basic metabolic panel and CBC in a.m. 6. Overall, agree with current management. Job ID: [id number]
[2018-08-02] MEDS: Losartan 25 MG TAB PO SCH (11:29)
[2018-08-02] MEDS: Heparin 5,000 UNITS/ML VIAL SC SCH ×2 (11:31→21:10)
[2018-08-02 13:10] VITALS: BMI 28.8
--- NOTE | 2018-08-02 13:41 | PDOC.PN ---
- Subjective Encounter Start Date: 08/02/18 Encounter Start Time: 13:40 Mr. Lau was seen today in follow-up of respiratory failure. He says he was still short of breath when he lays down, but was able to breathe better last night. His nurse also notes that he de-saturates when he sleeps, down to the mid 80's - Objective Resuscitation Status - Order Detail: 07/31/18 11:39 Resuscitation Status Routine Resuscitation Status: FULL: Full Resuscitation MAR Reviewed: Yes Vital Signs & Weight: Vital Signs (12 hours) Temp Pulse Resp BP BP Pulse Ox 08/02/18 08:47 64 08/02/18 08:44 64 122/60 08/02/18 04:40 98.5 F 64 20 112/57 L 100 Weight Admit Weight 215 lb 4 oz Weight 224 lb 7 oz I&O: 08/01/18 08/02/18 08/03/18 06:59 06:59 06:59 Intake Total 630 150 Output Total 0 872 Balance 630 -722 Result Diagrams: 08/02/18 05:03 08/02/18 05:03 Additional Labs: Accuchecks 08/02/18 08/02/18 08/01/18 10:54 05:43 20:58 POC Glucose 106 134 H 125 H 08/01/18 17:07 POC Glucose 133 H Phys Exam - Physical Examination HEENT: PERRLA Respiratory: no wheezing, no rhonchi, clear to auscultation bilateral + faint rales at the bases Cardiovascular: RRR, no significant murmur, no rub Gastrointestinal: soft, non-tender, no distention, positive bowel sounds Musculoskeletal: pulses present, edema present + pedal edema in both lower extremities Dx/Plan (1) Acute respiratory failure with hypoxia Code(s): J96.01 - ACUTE RESPIRATORY FAILURE WITH HYPOXIA Status: Acute (2) Diabetes mellitus type 2 in obese Code(s): E11.9 - TYPE 2 DIABETES MELLITUS WITHOUT COMPLICATIONS; E66.9 - OBESITY , UNSPECIFIED Status: Acute (3) End stage renal disease Code(s): N18.6 - END STAGE RENAL DISEASE Status: Chronic (4) Hypertension Code(s): I10 - ESSENTIAL (PRIMARY) HYPERTENSION Status: Chronic - Plan * Acute respiratory failure- volume overload?- continue fluid removal with dialysis * He is able to lay supine better, consider proceeding with CTA of the chest * Echo results are pending * ESRD- continue PD * Hypokalemia- he has received potassium supplementation this morning * HTN- blood pressure is stable * DM- blood glucose is stable.
[2018-08-02] MEDS ORDERED: ISOVUE-370 76%-LOCM 1 ML ONE (14:11)
--- NOTE | 2018-08-02 16:44 | PDOC.CTH ---
Cardiology Progress Note - Subjective No new issues. His breathing slightly improved, feels better. - Objective Vital Signs Pulse BP 08/02/18 08:47 64 08/02/18 08:44 64 122/60 Admit Weight 215 lb 4 oz Weight 224 lb 7 oz 08/01/18 08/02/18 08/03/18 06:59 06:59 06:59 Intake Total 630 150 Output Total 0 872 Balance 630 -722 - Physical Examination General/Neuro: alert & oriented x3, NAD Neck: no JVD present Lungs: unlabored respirations Heart: RRR Abdomen: NT/ND Extremities: + edema B (1+) - Telemetry Telemetry Rhythm: NSR - Labs Result Diagrams: 08/02/18 05:03 08/02/18 05:03 Troponin/CKMB CK-MB (CK-2) 3.3 ng/mL (0-6.6) 07/30/18 21:32 Troponin I 0.236 ng/mL (< 0.028) H 07/31/18 05:03 - Assessment/Plan 1. ESRD 2. Volume overload 3. Acute on chronic diastolic heart failure. 4. S/P AVR 5. S/P CABG 6. S/P Aortic root replacement. 7. Non oclussive thrombus in legs, likely old finding. PLAN: - Continue PD. - Continue other meds. - Will get CT chest to rule out PE.
--- NOTE | 2018-08-02 18:02 | CT ---
CT PULMONARY ANGIOGRAM WITH IV CONTRAST AND 3D POSTPROCESSIN08/02/18 HISTORY: Dyspnea. Superficial vein thrombosis in the lower extremity. COMPARISON: Comparison made to exam of 08/12/16. No filling defects are seen in the contrast opacified pulmonary artery vasculature to suggest pulmona ry embolism. There are vascular calcifications without evidence of aneurysmal dilatation of the thor acic aorta. There is a moderate left pleural effusion. There are patchy infiltrates/consolidation in the left upper lobe. A 12 mm nodule in the superior segment of the right lower lobe is stable. Mild l ymphadenopathy is stable. There are degenerative changes in the spine. Upper abdominal tomograms demo nstrate a peripherally calcified mass-like lesion in the posterior aspect of the left upper quadrant and mild ascites. There are degenerative changes in the spine. IMPRESSION: No CT evidence of pulmonary embolism. POS: PUNEET
[2018-08-02] MEDS: cefTRIAXone\\ROCEPHIN 1 GM in Sodium Chloride 0.9% 100 ML IVPB SCH (21:09)
[2018-08-02] MEDS: Simvastatin 5 MG TAB PO SCH (21:11)
[2018-08-02] MEDS: Zolpidem Tartrate 5 MG TAB PO PRN (22:14)
[2018-08-03] MEDS: Levothyroxine 150 MCG TAB PO SCH (05:21)
[2018-08-03 07:15] LABS: #Basophils 0.1 thou/uL (0.0-0.2); #Eosinphils 0.3 thou/uL (0.0-0.7); #Lymphocytes 1.7 thou/uL (1.20-3.40); #Monocytes 0.9 thou/uL (0.11-0.59); #Neutrophils 7.9 thou/uL (1.40-6.50); %Basophils 0.9 % (0.0-1.0); %Eosinophils 2.9 % (0.0-10.0); %Lymphocytes 15.5 % (21.0-51.0); %Monocytes 8.4 % (0.0-10.0); %Neutrophils 72.4 % (42.0-75.0); Hemoglobin 8.9 g/dL (14.0-18.0); Mean Corpuscular HGB CONC 31.9 g/dL (32.0-36.0); Mean Corpuscular Hemoglobin 32.5 pg (27.0-31.0); Mean Platelet Volume 10.5 fL (7.4-10.4); Platelet Count 273 thou/uL (130-400); RBC Distribution Width 12.8 % (11.5-14.5); Red Blood Cell (RBC) Count 2.74 mill/uL (4.70-6.10); White Blood Cell (WBC) Count 10.9 thou/uL (4.8-10.8)
[2018-08-03 07:34] LABS: Anion Gap 19 mmol/L (10-20); BUN (Urea Nitrogen) 46 mg/dL (8.4-25.7); Calc. Creatinine Clearance 10 mL/min (70-130); Calcium 8.4 mg/dL (7.8-10.44); Carbon Dioxide 28 mmol/L (23-31); Chloride 99 mmol/L (98-107); Estimated GFR-MDRD 5; Glucose 123 mg/dL (80-115); Potassium 3.9 mmol/L (3.5-5.1); Sodium 142 mmol/L (136-145)
[2018-08-03] MEDS: Ferrous Sulfate 325 MG TAB PO SCH ×2 (07:44→18:43)
--- NOTE | 2018-08-03 09:53 | PRG ---
DATE OF SERVICE: 08/03/2018 SUBJECTIVE: Mr. Lau is a 62-year-old white male, who was admitted for shortness of breath secondary to CHF. We are following this patient for his maintenance peritoneal dialysis. He underwent peritoneal dialysis last night without any difficulty. We used an alternating 1.5 and 2.5% PD solution. The shortness of breath has improved. The patient denies any chest pain. OBJECTIVE: VITAL SIGNS: Blood pressure 136/62, heart rate 52, respiratory rate 16, temperature 98.5, and pulse ox 98%. GENERAL: Noted to be awake, alert, comfortable, not in overt distress. SKIN: Adequate turgor. HEENT: Slightly pale conjunctivae. Anicteric sclerae. No neck mass. No carotid bruits. No JVD. CHEST: No deformities. LUNGS: Clear breath sounds. No wheezing. No crackles. HEART: Normal sinus rhythm. No murmur. No gallops. No rubs. ABDOMEN: Globular, soft, nontender. No masses. EXTREMITIES: No edema. No deformities. MEDICATIONS: Of August 03, 2018, was reviewed. LABORATORY DATA: Of August 03, 2018; white count 10.9, hemoglobin 8.9, sodium 142, potassium 3.9, chloride 99, carbon dioxide 28, BUN 46, creatinine 11.33, glucose 123, and calcium is 8.4. ASSESSMENT AND PLAN: 1. Shortness of breath, clinically improving. Maxing out fluid removal with the peritoneal dialysis as tolerated by the patient. 2. The patient was also ruled out for pulmonary embolism. 3. Anemia, stable, continuing weekly Epogen. 4. End-stage renal disease. We will continue current peritoneal dialysis. Fluid removal only as tolerated. 5. I agree with current management. Job ID: [id number]
[2018-08-03] MEDS: Aspirin 325 mg Enteric Coated Tablet PO SCH (10:26)
[2018-08-03] MEDS: Potassium Chloride 20 MEQ TAB PO SCH ×2 (10:26→19:47)
[2018-08-03] MEDS: Carvedilol 6.25 MG TAB PO SCH ×2 (10:26→19:53)
[2018-08-03] MEDS: Folic Acid 1 MG TAB PO SCH (10:27)
[2018-08-03] MEDS: Doxycycline 100 MG CAP PO SCH ×2 (10:27→19:46)
[2018-08-03] MEDS: NIFEdipine XL 90 MG TAB PO SCH (10:27)
[2018-08-03] MEDS: Heparin 5,000 UNITS/ML VIAL SC SCH ×2 (10:28→19:46)
[2018-08-03] MEDS: Losartan 25 MG TAB PO SCH (11:52)
--- NOTE | 2018-08-03 12:01 | PQF ---
CLINICAL DOCUMENTATION IMPROVEMENT CLARIFICATION FORM: ICD-10 Updated PLEASE DO AN ADDENDUM TO THE PROGRESS NOTE WITH ANY DOCUMENTATION UPDATES OR ADDITIONS AND CARRY THROUGH TO DC SUMMARY. THANK YOU. DATE: 08/03/18 ATTN: DR. CASTELLON Please exercise your independent, professional judgment in responding to the clarification form. Clinical indicators are provided on the bottom of this form for your review Please check appropriate box(s) to clarify if the following diagnosis has been ruled in or ruled out: "PNEUMONIA" [ ] Ruled in diagnosis [ ] Continue to treat [ ] Resolved [ ] Ruled out diagnosis [ ] Other diagnosis [ ] Unable to determine In addition, please specify: Present on Admission (POA): [ ] Yes [ ] No [ ] Unable to determine For continuity of documentation, please document condition throughout progress notes and discharge summary. Thank You. CLINICAL INDICATORS - SIGNS / SYMPTOMS / LABS ER NOTE: "PNEUMONIA" H&P: "PNEUMONIA" CT CHEST: "IMPROVING AIRSPACE OPACITY IN THE LEFT LOWER LOBE MAY REFLECT IMPROVING PNEUMONIA OF ATELECTASIS." WBC 11.3 CRP 7.34 RISKS: ACUTE RESPIRATORY FAILURE TREATMENT: IV AZITHROMYCIN (ER) IV ROCEPHIN (ER-PRESENT) VIBRAMYCIN (07/31-PRESENT) CHEST XRAY CHEST CT (This form is maintained as a part of the permanent medical record) 2014 [employer]. All Rights Reserved CARLITA [email or web address] Office: [phone] [email or web address]
--- NOTE | 2018-08-03 12:13 | PQF ---
CLINICAL DOCUMENTATION IMPROVEMENT CLARIFICATION FORM: ICD-10 Updated PLEASE DO AN ADDENDUM TO THE PROGRESS NOTE WITH ANY DOCUMENTATION UPDATES OR ADDITIONS AND CARRY THROUGH TO DC SUMMARY. THANK YOU. DATE: 08/03/18 ATTN: DR. CASTELLON Please exercise your independent, professional judgment in responding to the clarification form. Clinical indicators are provided on the bottom of this form for your review Please check appropriate box(s) to clarify if the following diagnosis has been ruled in or ruled out: "TYPE 2 KS" [ X ] Ruled in diagnosis [ X] Continue to treat [ ] Resolved [ ] Ruled out diagnosis [ ] Other diagnosis [ ] Unable to determine In addition, please specify: Present on Admission (POA): [ X] Yes [ ] No [ ] Unable to determine For continuity of documentation, please document condition throughout progress notes and discharge summary. Thank You. CLINICAL INDICATORS - SIGNS / SYMPTOMS / LABS H&P: "TYPE 2 KS" CARDIOLOGY NOTE: "TROPONINS X3 INDETERMINATE RANGE, NO EVIDENCE OF ACS AT THIS TIME." TROPONINS 0.274 / 0.249 / 0.236 RISKS: CHF ESRD HTN TREATMENT: SERIAL CARDIAC ENZYMES CARDIOLOGY CONSULT ASPIRIN (ER-PRESENT) HEPARIN (07/31-PRESENT) [employer] Win[employer] (This form is maintained as a part of the permanent medical record) 2014 [employer]. All Rights Reserved CARLITA [email or web address] Office: [phone] MIGUEL
--- NOTE | 2018-08-03 16:47 | PDOC.CTH ---
Cardiology Progress Note - Subjective He is dong well. He feels back to normal. - Objective Vital Signs Temp Pulse Resp BP BP Pulse Ox 08/03/18 10:27 52 L 08/03/18 10:26 136/65 08/03/18 07:45 98.5 F 52 L 16 136/62 98 Admit Weight 215 lb 4 oz Weight 223 lb 15.834 oz 08/02/18 08/03/18 08/04/18 06:59 06:59 06:59 Intake Total 150 1010 Output Total 872 0 Balance -722 1010 - Physical Examination General/Neuro: alert & oriented x3, NAD Neck: no JVD present Lungs: CTA, unlabored respirations Heart: RRR Abdomen: NT/ND Extremities: other: (1+) - Telemetry Telemetry Rhythm: NSR - Labs Result Diagrams: 08/03/18 06:20 08/03/18 06:20 Troponin/CKMB CK-MB (CK-2) 3.3 ng/mL (0-6.6) 07/30/18 21:32 Troponin I 0.236 ng/mL (< 0.028) H 07/31/18 05:03 - Assessment/Plan 1. ESRD 2. Volume overload 3. Acute on chronic diastolic heart failure. 4. S/P AVR 5. S/P CABG 6. S/P Aortic root replacement. 7. Non oclussive thrombus in legs, likely old finding. PLAN: - Continue PD. - Continue other meds. - No PE on CT. - Stable, back to baseline. - Will sign off. Please call with any questions.
--- NOTE | 2018-08-03 18:18 | PDOC.PN ---
- Subjective Encounter Start Date: 08/03/18 Encounter Start Time: 09:45 Mr. Lau was seen today in follow-up of Pneumonia. He does not have any complaints. He is feeling better - Objective Resuscitation Status - Order Detail: 07/31/18 11:39 Resuscitation Status Routine Resuscitation Status: FULL: Full Resuscitation MAR Reviewed: Yes Vital Signs & Weight: Vital Signs (12 hours) Temp Pulse Resp BP BP Pulse Ox 08/03/18 12:00 98.2 F 55 L 18 126/59 L 95 08/03/18 10:27 52 L 08/03/18 10:26 136/65 08/03/18 08:00 95 08/03/18 07:45 98.5 F 52 L 16 136/62 98 Weight Admit Weight 215 lb 4 oz Weight 223 lb 15.834 oz I&O: 08/02/18 08/03/18 08/04/18 06:59 06:59 06:59 Intake Total 150 1010 Output Total 872 0 Balance -722 1010 Result Diagrams: 08/03/18 06:20 08/03/18 06:20 Additional Labs: Accuchecks 08/03/18 08/03/18 08/03/18 16:58 10:56 05:11 POC Glucose 115 H 127 H 132 H 08/02/18 20:15 POC Glucose 131 H Phys Exam - Physical Examination HEENT: PERRLA + rales at the right base Cardiovascular: RRR, no significant murmur, no rub Gastrointestinal: soft, non-tender, no distention, positive bowel sounds Musculoskeletal: pulses present, edema present 1+ pitting edema in both lower extremities Neurological: non-focal Dx/Plan (1) Acute respiratory failure with hypoxia Code(s): J96.01 - ACUTE RESPIRATORY FAILURE WITH HYPOXIA Status: Acute (2) Diabetes mellitus type 2 in obese Code(s): E11.9 - TYPE 2 DIABETES MELLITUS WITHOUT COMPLICATIONS; E66.9 - OBESITY , UNSPECIFIED Status: Acute (3) End stage renal disease Code(s): N18.6 - END STAGE RENAL DISEASE Status: Chronic (4) Hypertension Code(s): I10 - ESSENTIAL (PRIMARY) HYPERTENSION Status: Chronic - Plan * Acute respiratory failure- likely from pneumonia and diastolic heart failure * Continue to remove fluid with dialysis * Pneumonia- will change antibiotic to Levaquin- renal dosed * ESRD- stable * DM- blood glucose is stable.
[2018-08-03] MEDS: hydrALAZINE 25 MG TAB PO SCH ×2 (18:36→19:48)
[2018-08-03] MEDS: Simvastatin 5 MG TAB PO SCH (19:54)
[2018-08-03] MEDS: Zolpidem Tartrate 5 MG TAB PO PRN (21:34)
[2018-08-04] MEDS: Levothyroxine 150 MCG TAB PO SCH (05:14)
[2018-08-04 07:29] VITALS: TEMP 98.2
[2018-08-04] MEDS: Folic Acid 1 MG TAB PO SCH (09:43)
[2018-08-04] MEDS: Heparin 5,000 UNITS/ML VIAL SC SCH (09:43)
[2018-08-04] MEDS: hydrALAZINE 25 MG TAB PO SCH (09:43)
[2018-08-04] MEDS: Doxycycline 100 MG CAP PO SCH (09:43)
[2018-08-04] MEDS: Aspirin 325 mg Enteric Coated Tablet PO SCH (09:43)
[2018-08-04] MEDS: Ferrous Sulfate 325 MG TAB PO SCH (09:43)
[2018-08-04] MEDS: Losartan 25 MG TAB PO SCH (09:44)
[2018-08-04] MEDS: NIFEdipine XL 90 MG TAB PO SCH (09:44)
[2018-08-04] MEDS: Carvedilol 6.25 MG TAB PO SCH (09:45)
[2018-08-04] MEDS: Potassium Chloride 20 MEQ TAB PO SCH (09:48)
--- NOTE | 2018-08-04 11:01 | PDOC.PN ---
- Subjective Encounter Start Date: 08/04/18 Encounter Start Time: 10:59 Patient seen and examined. No new complaints. No overnight events. feeling good, no sob wants to go home. - Objective Resuscitation Status - Order Detail: 07/31/18 11:39 Resuscitation Status Routine Resuscitation Status: FULL: Full Resuscitation MAR Reviewed: Yes Vital Signs & Weight: Vital Signs (12 hours) Temp Pulse Resp BP Pulse Ox 08/04/18 09:45 68 08/04/18 07:27 98.2 F 55 L 15 127/60 94 L 08/04/18 04:00 98.0 F 57 L 18 118/57 L 93 L Weight Admit Weight 215 lb 4 oz Weight 220 lb 14.451 oz I&O: 08/03/18 08/04/18 08/05/18 06:59 06:59 06:59 Intake Total 1010 50 Output Total 0 0 Balance 1010 50 Result Diagrams: 08/03/18 06:20 08/03/18 06:20 Additional Labs: Accuchecks 08/04/18 08/03/18 08/03/18 05:47 20:46 16:58 POC Glucose 118 H 152 H 115 H 08/03/18 10:56 POC Glucose 127 H Phys Exam - Physical Examination Constitutional: NAD HEENT: sclera anicteric Neck: no nodes, supple Respiratory: no wheezing, no rales Cardiovascular: RRR Gastrointestinal: soft Musculoskeletal: edema present Neurological: non-focal, moves all 4 limbs Lymphatic: no nodes Psychiatric: normal affect, A&O x 3 Skin: no rash Dx/Plan (1) Acute respiratory failure with hypoxia Code(s): J96.01 - ACUTE RESPIRATORY FAILURE WITH HYPOXIA Status: Acute (2) Shortness of breath Code(s): R06.02 - SHORTNESS OF BREATH Status: Acute (3) Diabetes mellitus type 2 in obese Code(s): E11.9 - TYPE 2 DIABETES MELLITUS WITHOUT COMPLICATIONS; E66.9 - OBESITY , UNSPECIFIED Status: Acute (4) Hypothyroidism Code(s): E03.9 - HYPOTHYROIDISM, UNSPECIFIED Status: Acute (5) Pulmonary edema Code(s): J81.1 - CHRONIC PULMONARY EDEMA Status: Acute (6) Respiratory failure Code(s): J96.90 - RESPIRATORY FAILURE, UNSP, UNSP W HYPOXIA OR HYPERCAPNIA Status: Acute (7) End stage renal disease Code(s): N18.6 - END STAGE RENAL DISEASE Status: Chronic (8) Hypertension Code(s): I10 - ESSENTIAL (PRIMARY) HYPERTENSION Status: Chronic - Plan cont current plan of care, continue antibiotics * . no sob and feeling better No edema Dc home today. continue levaquin for 4 more days. continue PD per nephro
--- NOTE | 2018-08-04 11:04 | PRG ---
DATE OF SERVICE: SUBJECTIVE: Mr. Lau is a 62-year-old white male, who was admitted for mild shortness of breath secondary to CHF. He has also presumed pneumonia. CT angio of the lungs has also been done, which showed no pulmonary embolism. This morning, he is feeling better. He denies any chest pain or shortness of breath. OBJECTIVE: VITAL SIGNS: Blood pressure is 127/60, heart rate 55, respiratory rate 15, temperature 98.2, and pulse ox 94%. GENERAL: Awake, alert, sitting comfortable, not in distress. SKIN: Adequate turgor. HEENT: Slightly pale conjunctivae. Anicteric sclerae. NECK: No neck mass. No carotid bruits. No JVD. CHEST: No deformities. LUNGS: Decreased breath sounds. HEART: Normal sinus rhythm. No murmurs, gallops or rubs. ABDOMEN: Globular, soft, and nontender. No masses. Positive for PD catheter. EXTREMITIES: No edema. MEDICATIONS: Medications of August 04, 2018, were reviewed. LABORATORY DATA: Laboratories of August 03, 2018, reviewed. August 04, 2018, glucose 118. ASSESSMENT/PLAN: 1. Pneumonia - on antibiotics. Clinically asymptomatic. 2. Mild congestive heart failure, clinically improved. 3. Anemia, currently on weekly Epogen. Continuing same dosing. 4. End-stage renal disease, tolerating said peritoneal dialysis, no changes to be made. I did instruct the patient once discharged, he will do a midday exchange due to his decreased Kt/V. If there is a question, he will call the dialysis unit. Job ID: [id number]
[2018-08-04 12:47] VITALS: BP 148/65
[2018-08-04] MEDS ORDERED: Carvedilol 6.25 MG TAB PO SCH (21:00)
--- NOTE | 2018-08-04 22:38 | DIS ---
DATE OF ADMISSION: 07/31/2018 DATE OF DISCHARGE: 08/04/2018 DISCHARGE DIAGNOSES: 1. Acute hypoxic respiratory failure secondary to pneumonia and possible fluid overload. 2. Acute on chronic diastolic heart failure. 3. Hypokalemia. 4. Mild coronary artery disease. 5. Hypertension. 6. Hypothyroidism. 7. Hyperlipidemia. 8. BPH. 9. History of transient ischemic attack. 10. History of pancreatic cancer. 11. End-stage renal disease, on peritoneal dialysis. 12. Type 2 diabetes. CONSULTS: Dr. Brooks from Nephrology. Dr. Kuo from Cardiology. PROCEDURES: 1. CT angio of the chest is negative for pulmonary embolism. 2. Hemodialysis. HOSPITAL COURSE: This is a 62-year-old male, admitted with shortness of breath , and was found to have possible pneumonia and fluid overload. The patient was treated with peritoneal dialysis yielding adequate ultrafiltration. He was also on antibiotics. The patient had started to feeling better and was stable to go home. On the day of discharge, he was feeling better, the patient was requesting to go home. Denies any other symptoms at this point. The patient will be continued on Levaquin for a total of 10 days. No fever or chills were reported. CONDITION ON DISCHARGE: Stable. DISPOSITION: To home. DISCHARGE MEDICATIONS: 1. Procardia. 2. Protonix 40 mg p.o. daily. 3. Losartan. 4. Synthroid. 5. Carvedilol 6.25 b.i.d. 6. Aspirin 81 mg daily. 7. Levofloxacin 250 mg p.o. daily for 4 more days. ALLERGIES: NO KNOWN DRUG ALLERGIES. DISCHARGE FOLLOWUP: Follow up with his primary care physician in 1-2 weeks. Please note that I did spend more than 35 minutes coordinating the discharge care of this patient. Job ID: [id number] MTDD
== END 2018-08-04 13:05 | disposition home or self-care (01) | DRG 280 ==
LOC: ERS 21:12 → 2NO 07-31 00:21
PROVIDERS: ADMIT Internal Medicine; ATTEND Internal Medicine
PROC: 5A1D70Z Performance of Urinary Filtration, Intermittent, Less than 6 Hours Per Day (ICD-10-PCS; principal; 2018-07-31)
DX: I13.2 Hypertensive heart and chronic kidney disease with heart failure and with stage 5 chronic kidney disease, or end stage renal disease (principal); J96.01 Acute respiratory failure with hypoxia; I21.A1 Myocardial infarction type 2; J18.9 Pneumonia, unspecified organism; I50.33 Acute on chronic diastolic (congestive) heart failure; N18.6 End stage renal disease; E87.6 Hypokalemia; I25.10 Atherosclerotic heart disease of native coronary artery without angina pectoris; E03.9 Hypothyroidism, unspecified; E78.5 Hyperlipidemia, unspecified; N40.0 Benign prostatic hyperplasia without lower urinary tract symptoms; E11.22 Type 2 diabetes mellitus with diabetic chronic kidney disease; E66.9 Obesity, unspecified; D63.1 Anemia in chronic kidney disease; E53.8 Deficiency of other specified B group vitamins; G47.33 Obstructive sleep apnea (adult) (pediatric); E11.21 Type 2 diabetes mellitus with diabetic nephropathy; K21.9 Gastro-esophageal reflux disease without esophagitis; Z68.28 Body mass index [BMI] 28.0-28.9, adult; Z95.1 Presence of aortocoronary bypass graft; Z99.2 Dependence on renal dialysis; Z87.891 Personal history of nicotine dependence; Z86.73 Personal history of transient ischemic attack (TIA), and cerebral infarction without residual deficits; Z90.49 Acquired absence of other specified parts of digestive tract; Z79.899 Other long term (current) drug therapy
CPT/HCPCS: 36415; 36416; 71045; 71046; 71275; 80048; 80061; 82553; 82607; 82746; 83605; 83735; 83880; 84132; 84484; 85025; 86140; 87040; 90471; 90670; 90945; 93306; 93798; 93970; 94760; 96365; G0009; G0257; J0456; J0696; J0885; J1644; J3475; J3490; Q5105; Q9966

== ENCOUNTER 2018-10-02 00:50 | Inpatient (IN) | payer MEDICARE, OTHER ==
[2018-10-02 01:38] LABS: #Eosinphils 0.4 thou/uL (0.0-0.7); #Monocytes 1.2 thou/uL (0.11-0.59); #Neutrophils 11.6 thou/uL (1.40-6.50); %Basophils 0.1 % (0.0-1.0); %Eosinophils 2.6 % (0.0-10.0); %Monocytes 7.6 % (0.0-10.0); %Neutrophils 76.7 % (42.0-75.0); Hemoglobin 9.2 g/dL (14.0-18.0); Mean Corpuscular HGB CONC 32.3 g/dL (32.0-36.0); Mean Corpuscular Hemoglobin 32.4 pg (27.0-31.0); Mean Platelet Volume 9.7 fL (7.4-10.4); Platelet Count 352 thou/uL (130-400); RBC Distribution Width 13.9 % (11.5-14.5); Red Blood Cell (RBC) Count 2.83 mill/uL (4.70-6.10); White Blood Cell (WBC) Count 15.1 thou/uL (4.8-10.8)
[2018-10-02 01:56] LABS: ALT (SGPT) 13 U/L (8-55); AST (SGOT) 23 U/L (5-34); Albumin 2.8 g/dL (3.4-4.8); Alkaline Phosphatase 58 U/L (40-150); Anion Gap 18 mmol/L (10-20); BUN (Urea Nitrogen) 47 mg/dL (8.4-25.7); Bilirubin, Total 0.4 mg/dL (0.2-1.2); Calc. Creatinine Clearance 0 mL/min (70-130); Calcium 8.4 mg/dL (7.8-10.44); Carbon Dioxide 28 mmol/L (23-31); Chloride 99 mmol/L (98-107); Estimated GFR-MDRD 6; Globulin 3.5 g/dL (2.4-3.5); Glucose 172 mg/dL (80-115); Potassium 3.7 mmol/L (3.5-5.1); Protein, Total 6.3 g/dL (5.8-8.1); Sodium 141 mmol/L (136-145)
[2018-10-02 02:24] LABS: CKMB 3.9 ng/mL (0-6.6)
[2018-10-02] MEDS ORDERED: Piperacillin/Tazobactam 4.5 GM VIAL ONE (02:35)
[2018-10-02] MEDS ORDERED: Vancomycin HCl 1.5 GM in Sodium Chloride 0.9% 250 ML 300 ML IVPB SCH (02:45)
[2018-10-02] MEDS ORDERED: Aspirin 81 mg Enteric Coated Tablet ONE (02:46)
[2018-10-02] MEDS ORDERED: Enoxaparin Sodium 100 MG/ML SYRINGE ONE (02:46)
[2018-10-02 05:26] LABS: Critical Call Chem Troponin I RESULT DECREASING; Troponin I 10.336 ng/mL (< 0.028)
[2018-10-02] MEDS ORDERED: Dextrose 5% in Water 1,000 ML IV PRN (05:38)
[2018-10-02] MEDS ORDERED: Dextrose 50% Abboject 50 ML SYRINGE SLOW IVP PRN (05:38)
[2018-10-02] MEDS ORDERED: Ondansetron PF 4 MG/2 ML Vial IVP PRN (05:44)
[2018-10-02] MEDS ORDERED: Ondansetron ODT 4 MG TAB PO PRN (05:44)
[2018-10-02] MEDS ORDERED: Acetaminophen 650 MG Suppository PR PRN (05:44)
--- NOTE | 2018-10-02 07:51 | RAD ---
XR Chest 1 View Portable History: Dyspnea Comparison: CT angiogram chest August 02, 2018 Findings: Large layering left pleural effusion. No pneumothorax. Heart size is enlarged. Ovoid infra diaphragmatic calcification is similar. Impression: Similar to July 2018 large layering left pleural effusion.
--- NOTE | 2018-10-02 08:17 | HP ---
PRIMARY CARE DOCTOR: Abdullahi Rome MD CODE STATUS: Full code. TIME OF EVALUATION: 5:00 a.m. CHIEF COMPLAINT: Shortness of breath. HISTORY OF PRESENT ILLNESS: A 63-year-old male patient, past medical history of end-stage renal disease, on peritoneal dialysis, also has a history of diabetes, hypertension, sleep apnea, came to the hospital after having an episode of shortness of breath while receiving his peritoneal dialysis at home. No clear triggers, no alleviating factors. No other significant symptoms associated. Saturation was 89% on room air when the EMS got to the site . The labs showed the patient has no STEMI type 1 and for that reason, the patient received Lovenox and will be seen by Cardiology in the morning. Symptoms were mild. REVIEW OF SYSTEMS: CONSTITUTIONAL: No fever, chills, or generalized weakness. RESPIRATORY: The patient has cough, no sputum production, reported shortness of breath. CARDIOVASCULAR: No chest pain or palpitation. GASTROINTESTINAL: No nausea, vomiting, diarrhea, or abdominal pain HALAL MEAT PACKER: No dizziness, headache, or feeling lightheaded. GENITOURINARY: No burning on urination. EXTREMITIES: Bilateral leg swelling. SKIN: The patient has left great toe ingrowing nail. All other systems were reviewed and negative except for the findings mentioned above. PAST MEDICAL HISTORY: Positive for the findings mentioned in HPI. PAST SURGICAL HISTORY: The patient has a history of CABG, four vessels, pancreatic surgery, cholecystectomy, splenectomy. FAMILY HISTORY: Reviewed and non contributory for current presentation. KNOWN ALLERGIES: No known drug allergies. REPORTED MEDICATIONS: 1. Hydralazine. 2. Nifedipine. 3. Reglan. 4. Carvedilol. 5. Losartan. 6. Pravastatin. 7. Protonix. 8. Levothyroxine. PHYSICAL EXAMINATION: VITAL SIGNS: On presentation, blood pressure 128/71 with heart rate 99, respiratory rate was 18, temperature 100.2. Pain was 7/10. Oxygen saturation 100 on 3 L. GENERAL APPEARANCE: The patient is alert, oriented, not in acute distress, needing some oxygen by nasal cannula. HEENT: Eyes, normal conjunctivae. Moist oral mucosa. Anicteric. No JVD. RESPIRATORY: Bilateral air entry. No wheezing. Symmetric expansion. Scattered rales. CARDIOVASCULAR: Normal rate, regular rhythm. No murmurs. No gallop. No edema. ABDOMEN: Soft. Normal bowel sounds. MUSCULOSKELETAL: Baseline range of motion and strength. No tenderness. SKIN: Warm, intact. No pallor. No rash. No redness. Capillary refill seems to be intact. NEURO: No evidence of any new focal weakness. Cranial nerves seem to be intact. PSYCH: The patient is in good mood. No anxiety. Optimal judgment. DIAGNOSTIC DATA: Normal sinus rhythm, RBBB, ventricular rate 88, MD 174, QRS 168, QT corrected 579. Chest x-ray was reviewed. The patient has left-sided pleural effusion, cardiomegaly. LABORATORY DATA: Reviewed. The patient has white count of 15.1, hemoglobin 9.2 , is about the same the patient had in previous admissions, MCV 100, platelet count 352. Chemistry; sodium 141, potassium 3.7, chloride 99, carbon dioxide 28, anion gap of 18, BUN 47, creatinine 8.69, GFR was 6, glucose 172. Lactic acid 1.9, calcium 9.4, total bilirubin 0.4. LFTs were negative. Initial troponin was 10.594, recent one 10.336. Beta-natriuretic peptide 14,069. Albumin 2.8, albumin-globulin ratio 0.8. ASSESSMENT AND PLAN: The patient will be placed in the hospital with following medical problems. 1. Nfb-JO-iyvyatbnt myocardial infarction. The patient has elevation in troponin of 10 x2. The patient received Lovenox. Cardiology has been consulted. We will reconcile home medications. We will monitor closely. Continue cardiac monitoring. 2. Possible pneumonia. The patient has left-sided pleural effusion, possible pneumonia. The patient is getting antibiotics. We will continue for now, we will follow cultures, adjust treatment as needed for deep venous thrombosis. 3. Uncontrolled diabetes with hyperglycemia. Blood sugar 172. We will place the patient on sliding scale for optimal control. 4. Gastroesophageal reflux disease, reconcile home medications. 5. Hypothyroidism. Continue levothyroxine 150 mcg a day. 6. acute hypoxic respiratory failure , saturation bellow 90 on presentation, resolving , will give oxygen support, as needed, likely due to pna, this place pt at high risk Job ID: [id number] [facility]
[2018-10-02 08:31] LABS: Troponin I 11.205 ng/mL (< 0.028)
--- NOTE | 2018-10-02 10:37 | CON ---
DATE OF CONSULTATION: HISTORY OF PRESENT ILLNESS: Mr. Lau is a 63-year-old white male with known history of ESRD, currently on peritoneal dialysis and admitted for shortness of breath. He was found to have mild hypoxemia at 89% pulse ox on room air. We are now being consulted for his maintenance peritoneal dialysis. Chest x-ray on admission, October 02, 2018, showed a large layering left pleural effusion, which is similar to a chest x-ray of July 2018. This morning, he is feeling a little better. REVIEW OF SYSTEMS: Positive for shortness of breath. No chest pain. Denies any fever or chills. No abdominal pain. Decreased appetite. Decreased energy level. No nausea. No vomiting. No gross hematuria. No hematochezia. No melena. No hematemesis. MEDICATIONS: Medications of October 02, 2018, the patient is currently on; 1. Levaquin 500 mg q.48 hours. 2. He is also on insulin Humulin R sliding scale. 3. Zofran 4 mg IV q.6 p.r.n. Home medications include the following; 1. Reglan 10 mg at bedtime. 2. Imdur ER 30 mg at bedtime. 3. Fosrenol 1000 mg p.o. t.i.d. with meals. 4. Hydralazine 100 mg p.o. t.i.d. 5. Pravastatin one tablet at bedtime. 6. Protonix 40 mg q.a.m. 7. Nifedipine XL 60 mg q.a.m. 8. Losartan 100 mg daily. 9. Levothyroxine one tablet daily. PAST MEDICAL HISTORY: 1. ESRD from diabetic nephropathy. 2. Type 2 diabetes mellitus. 3. Coronary artery disease. 4. Status post CHF. 5. Hyperlipidemia. 6. BPH. 7. Status post TIA. 8. Status post ubv-FB-rqjorxpjz RI. 9. Pancreatic cancer/tail of pancreas, in remission. 10. He has also history of hypothyroidism. PAST SURGICAL HISTORY: 1. Status post resection of the tail of the pancreas. 2. Status post splenectomy. 3. Status post cholecystectomy. 4. Status post PD catheter placement. 5. Status post cardiac cath. 6. Status post CABG. 7. Status post upper GI endoscopy. 8. Status post colonoscopy. 9. Status post surgical repair of the right leg fracture. 10. Status post PD catheter placement. 11. Status post cholecystectomy. SOCIAL HISTORY: The patient is single, lives in [place] with his daughter. No history of smoking. Education - [employer]/college graduate. Status post blood transfusion. No IV drug abuse. 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 ALLERGIES: NONE. TRAUMA: Status post right leg fracture. IMMUNIZATION: Up-to-date. HOSPITALIZATIONS: Please see past medical history. FAMILY HISTORY: No family history of ESRD. PHYSICAL EXAMINATION: VITAL SIGNS: Blood pressure 108/49, heart rate 68, respiratory rate 20, and pulse ox 99%. GENERAL: He is noted to be awake, lethargic, not in overt distress. SKIN: Adequate turgor. HEENT: He has a slightly pale conjunctivae. Anicteric sclerae. NECK: No neck mass. No carotid bruits. No JVD. CHEST: No deformities. LUNGS: Decreased breath sounds. HEART: Normal sinus rhythm. No murmur. No gallops. No rubs. ABDOMEN: Globular, soft, nontender. No masses. Positive for PD catheter. EXTREMITIES: No edema. No deformities. LABORATORY DATA: Laboratories of October 02, 2018: White count 15.1, hemoglobin 9.2. On October 02, 2018: Sodium 141, potassium 3.7, chloride 99, carbon dioxide 28, BUN 47, creatinine 8.69, glucose 172, and calcium 8.4. AST 23, ALT 13. BNP is 14,069. Troponin-I is 10.336. ASSESSMENT AND PLAN: 1. Shortness of breath - multifactorial etiology. This could be a combination of congestive heart failure as well as from his cardiac ? myocardial infarction. We will start peritoneal dialysis later tonight with this patient. Chest x-ray did show pleural effusion. This may need to be tapped to give him some relief. 1. End-stage renal disease, stable. We will continue current CCPD regimen. Review of the last Kt/V suggests he is adequately dialyzed with the current peritoneal dialysis. 2. Anemia. We will continue to observe. 3. Elevated troponin-I. Cardiology consult. Overall, agree with current management. Job ID: [id number]
[2018-10-02 16:34] LABS: BF Color Red; Body Fluid Source Thoracentesis Fluid; Clarity Cloudy/Turbid (Clear); Fluid, Triglycerides 11 mg/dL (Not Available); Pleural Fluid, Amylase Less than 30 U/L (Not Available); Pleural Fluid, Glucose 120 mg/dL; Pleural Fluid, LDH 187 U/L (Not Available)
[2018-10-02 16:35] LABS: Tube # 1
[2018-10-02 16:36] LABS: RBC Count-Automated 21000 /cumm; WBC/NonHematic-Auto 1040 /cumm
--- NOTE | 2018-10-02 17:05 | CON ---
DATE OF CONSULTATION: 10/02/2018 SERVICE: Pulmonary Medicine. REASON FOR CONSULTATION: Shortness of breath. HISTORY OF PRESENT ILLNESS: The patient is a 63-year-old white male with past medical history significant for end-stage renal disease, requiring peritoneal dialysis, and diabetes. He presented to the hospital with increasing shortness of breath. Denies any fevers or chills. He has been coughing, but not been able to liberate any sputum. He has not had any hot, red, swollen joints, dysuria, frequency, nausea, or vomiting. He presented to the emergency department. 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 He has never had a thoracentesis performed. This was a left-sided only effusion. PAST MEDICAL HISTORY: 1. Type 2 diabetes mellitus. 2. End-stage renal disease, on peritoneal dialysis. 3. Hypertension. 4. Dyslipidemia. 5. Obstructive sleep apnea. 6. Coronary artery disease. 7. Chronic diastolic heart failure. PAST SURGICAL HISTORY: 1. Coronary artery bypass graft. 2. Aortic valve replacement. 3. Aortic root surgery. 4. Splenectomy. 5. Cholecystectomy. 6. Pancreatic surgery. SOCIAL HISTORY: Negative for current alcohol, tobacco, or illicit drug use. He has no exposure to chemicals, dust, asbestos, or tuberculosis at this time. He has a history of smoking. FAMILY HISTORY: Noncontributory. ALLERGIES: NO KNOWN DRUG ALLERGIES. MEDICATIONS: List of the patient's inpatient medications was reviewed. No specific updates were made at this time. REVIEW OF SYSTEMS: General; head, ears, eyes, nose, throat; cardiovascular; respiratory; GI; ; musculoskeletal; neurologic; and skin are negative except as mentioned is the HPI. PHYSICAL EXAMINATION: VITAL SIGNS: Afebrile, pulse 70, blood pressure , respirations 22, and saturation 96% on 2 L nasal cannula. GENERAL: The patient is awake and alert, in no apparent distress. LUNGS: Decent air entry on the right. There is decreased air entry on the left. There is no prolonged expiratory phase or wheezing appreciated. HEART: Normal rate and regular. ABDOMEN: Soft, nontender, and nondistended. Bowel sounds are positive. MUSCULOSKELETAL: No cyanosis or clubbing. No pitting in the bilateral lower extremities. NEUROLOGIC: Grossly nonfocal. LABORATORY DATA: WBC 15.1, hemoglobin 9.2, platelets 252,000. Troponin 11.2 and gently uptrending, BNP 14,000 in historic high. Creatinine 8.7, BUN 47. Basic metabolic profile and liver function studies are otherwise unremarkable. Lactate is unremarkable. Influenza A and B are unremarkable. IMAGING STUDIES: Chest x-ray demonstrates an effusion on the left. There is no effusion on the right. He has large lung volume, that being said, . CT of the chest demonstrates left-sided pleural effusion with atelectasis of the left lung. There is no acute cardiopulmonary abnormality on the right. His left atrium is generous, right atrium is low. There is no reflux of contrast into the inferior vena cava. At the time 2 months ago, the patient did not have a PE. Pulmonary function studies were previously unremarkable. ASSESSMENT: 1. Acute hypoxic respiratory failure. 2. Pleural effusion on the left. 3. End-stage renal disease, on peritoneal dialysis. 4. Bxv-BJ-lwlkebtcj myocardial infarction, likely secondary to demand. DISCUSSION AND PLAN: I agree with Cardiology consultation. Pulmonary/Critical Care will continue to follow along in this location. From my perspective, he is stable for transition to the telemetry unit. I will perform a thoracentesis for both diagnostic and therapeutic purposes. Based on the characteristics of the fluid, we may never need to undergo a repeat procedure. Job ID: [id number]
[2018-10-02 17:28] LABS: BF Segmented Neutrophils 1 %; Cell Count Non Hematic 44 %; Eosinophils 7 %; Lymphocytes 48 %
--- NOTE | 2018-10-02 17:47 | OP ---
DATE OF PROCEDURE: 10/02/2018 SERVICE: Pulmonary Medicine. PROCEDURE PERFORMED: Left-sided pleural drainage with catheter insertion under ultrasound guidance. CONSENT: The risks and benefits of the procedure were discussed with the patient immediately prior to starting. All questions were answered and alternative options explained. DIE MAKER BENCH STAMPING: Jose E Barraza MD. MEDICATIONS USED: Lidocaine 1% without epinephrine, 10 mL. PREOPERATIVE DIAGNOSES: 1. Acute hypoxic respiratory failure. 2. Pleural effusion. POSTOPERATIVE DIAGNOSES: 1. Acute hypoxic respiratory failure. 2. Pleural effusion. DESCRIPTION OF PROCEDURE: Time-out was performed by the procedure team and patient. The patient was positively identified using name and date of . The procedure site was marked. Vital sign monitoring was accomplished by noninvasive hemodynamic monitoring, pulse oximetry, and telemetry. In the seated position, the left posterior hemothorax was examined using ultrasound probe. The diaphragm and pleural fluid were easily identified. The skin was prepped and draped in sterile fashion and anesthetized with 1% lidocaine without epinephrine. A finder needle was inserted in the pleural space with return of cloudy straw-colored fluid. A pleural drainage catheter was inserted in the same location. A total quantity of 1750 mL of pleural fluid was withdrawn by syringe pump technique. A sample was sent for analysis. Evacuation of fluid was terminated because we arrived at -20 cm of water pressure. The intact catheter was withdrawn on exhalation and a sterile dressing was applied. The patient had stable vitals throughout the entire procedure. ESTIMATED BLOOD LOSS: 10 mL. COMPLICATIONS: None. Job ID: [id number]
--- NOTE | 2018-10-02 19:43 | CON ---
DATE OF CONSULTATION: 10/02/2018 REASON FOR CONSULTATION: Elevated troponins. HISTORY OF PRESENT ILLNESS: Mr. Lau is a pleasant 63-year-old white gentleman, who comes to the hospital for shortness of breath. He was at home and felt the sudden onset of shortness of breath. He measured his oxygen saturations. They were 89%. He called EMS who brought him in for evaluation. EKG was unremarkable. Initially troponin was at 10, so Cardiology is being consulted for this. On my evaluation, Mr. Lau is resting comfortably on his bed. He denies any chest pain, tightness, pressure. His shortness of breath is still there. He is unable to lay flat. I did see him earlier this morning. PAST MEDICAL HISTORY: 1. End-stage renal disease, on peritoneal dialysis. 2. Type 2 diabetes. 3. Hypertension. 4. Sleep apnea. 5. Ascending aortic aneurysm, status post repair. 6. Hyperlipidemia. 7. Type 2 diabetes. 8. Pancreatic cancer, status post resection. 9. TIA in the past. SURGICAL HISTORY: 1. Left thyroid lobectomy. 2. Mastectomy. 3. Partial pancreatectomy with splenectomy. 4. Cholecystectomy. 5. Right tibia and fibula fracture with ORIF. 6. Incision and drainage of abdominal abscess. 7. Coronary artery bypass grafting with ascending aortic root aneurysm and aortic valve repair and aortic valve replacement. MEDICATIONS: Outpatient medications include: 1. Metoclopramide. 2. Isosorbide mononitrate 30 mg q.a.m. 3. Fosrenol. 4. Hydralazine 100 mg p.o. t.i.d. 5. Pravastatin. 6. Pantoprazole. 7. Nifedipine. 8. Losartan. 9. Levothyroxine. 10. Aspirin 325 mg a day. 11. Acetaminophen p.r.n. ALLERGIES: NO KNOWN DRUG ALLERGIES. SOCIAL HISTORY: No alcohol, tobacco, or drugs. Lives at home. He is , has a daughter. FAMILY HISTORY: Father with pancreatic cancer. Mother, diabetes and heart disease. REVIEW OF SYSTEMS: A 12-point review of systems was done and was all negative unless stated in the history of present illness. PHYSICAL EXAMINATION: VITAL SIGNS: Temperature 98.8, pulse 70, respiratory rate 22, saturating 98% on 1 L nasal cannula. GENERAL: Awake, alert, oriented x3 in no distress sitting about 30-40 degree angle as he cannot breathe laying flat. HEENT: Normocephalic, atraumatic. NECK: Supple. LUNGS: Has no breath sounds at left base. CARDIOVASCULAR: S1, S2. No S3 or S4. No murmurs. ABDOMEN: Soft. Positive bowel sounds. EXTREMITIES: No edema. SKIN: Warm and dry. LABORATORY DATA: Laboratory work was reviewed, shows a white count of 15, hemoglobin 9, hematocrit of 28, platelet count 252. Chemistry shows a BNP of 14,069 troponin was 10.5 and 10.3, went down, then back up to 11.2. CK-MB was normal BUN and creatinine are high, otherwise unremarkable. CMP: Glucose was 172, albumin of 2.8. Chest x-ray was reviewed. Has a large left-sided pleural effusion. ASSESSMENT: 1. Type 2 [employer] type of myocardial infarction demand ischemia. Most likely, we will do an echocardiogram to make sure there is no major change in left ventricular function. 2. Large left-sided pleural effusion. Pulmonary to do thoracentesis. 3. End-stage renal disease, on peritoneal dialysis. 4. History of ascending aortic aneurysm status post repair with aortic valve replacement. PLAN: 1. Currently, he is unable to lay flat, but we will do an echocardiogram to assess LV function, valvular structures. More than likely he will require heart catheterization in the next few days. If the fluid in his pleural space is malignant, this may be a recurrence of pancreatic cancer. However, at this point, we just need him to be able to lay flat and feel better before we take him to the catheterization lab in the next few days. The behavior of his troponin is most likely that of just demand ischemia as it went down initially and back up to 11 and has normal CK-MBs which would be expected to be much higher if this was an MO in the last few days, then his troponins are just trending down. 2. Continue dialysis. 3. Further recommendations per results of echocardiogram. 4. Likely heart catheterization in the next 48 hours. For now we are just pending results of thoracentesis. Job ID: [id number]
--- NOTE | 2018-10-02 22:39 | PDOC.PN ---
- Subjective Encounter Start Date: 10/02/18 Encounter Start Time: 10:20 Says he feels ok. Breathing adequately. Denies pain. - Objective Resuscitation Status - Order Detail: 10/02/18 05:44 Resuscitation Status Routine Resuscitation Status: FULL: Full Resuscitation Vital Signs & Weight: Vital Signs (12 hours) Temp 10/02/18 15:00 98.9 F Weight Weight 210 lb 3 oz Most Recent Monitor Data Heart Rate from ECG 70 NIBP 135/70 NIBP BP-Mean 91 Respiration from ECG 26 SpO2 98 I&O: 10/01/18 10/02/18 10/03/18 06:59 06:59 06:59 Intake Total 480 Output Total 500 Balance -20 Result Diagrams: 10/02/18 01:14 10/02/18 01:14 Additional Labs: Accuchecks 10/02/18 10/02/18 10/02/18 16:23 12:31 06:38 POC Glucose 105 131 H 93 Phys Exam - Physical Examination Constitutional: NAD Respiratory: no wheezing, no rales, no rhonchi Diminished. Cardiovascular: RRR, no significant murmur, no rub Gastrointestinal: soft, non-tender, no distention, positive bowel sounds Musculoskeletal: no edema Neurological: non-focal Psychiatric: normal affect Dx/Plan (1) Acute respiratory failure with hypoxia Code(s): J96.01 - ACUTE RESPIRATORY FAILURE WITH HYPOXIA Status: Acute (2) Diabetes mellitus type 2 in obese Code(s): E11.9 - TYPE 2 DIABETES MELLITUS WITHOUT COMPLICATIONS; E66.9 - OBESITY , UNSPECIFIED Status: Acute (3) Heart failure Code(s): I50.9 - HEART FAILURE, UNSPECIFIED Status: Acute (4) Hypothyroidism Code(s): E03.9 - HYPOTHYROIDISM, UNSPECIFIED Status: Acute (5) Pleural effusion Code(s): J90 - PLEURAL EFFUSION, NOT ELSEWHERE CLASSIFIED Status: Acute (6) Shortness of breath Code(s): R06.02 - SHORTNESS OF BREATH Status: Acute (7) End stage renal disease Code(s): N18.6 - END STAGE RENAL DISEASE Status: Chronic (8) Hypertension Code(s): I10 - ESSENTIAL (PRIMARY) HYPERTENSION Status: Chronic - Plan * Pulm, Neph, Cards consults. * Stable on oxygen. * Will continue dialysis. * Discussed with cardiology first this morning.
[2018-10-03 04:54] LABS: #Eosinphils 0.4 thou/uL (0.0-0.7); #Lymphocytes 1.4 thou/uL (1.20-3.40); #Monocytes 0.9 thou/uL (0.11-0.59); #Neutrophils 11.3 thou/uL (1.40-6.50); %Eosinophils 2.7 % (0.0-10.0); %Lymphocytes 9.8 % (21.0-51.0); %Monocytes 6.4 % (0.0-10.0); Hemoglobin 8.5 g/dL (14.0-18.0); Mean Corpuscular HGB CONC 30.9 g/dL (32.0-36.0); Mean Corpuscular Hemoglobin 31.2 pg (27.0-31.0); Mean Platelet Volume 9.4 fL (7.4-10.4); Platelet Count 323 thou/uL (130-400); RBC Distribution Width 13.8 % (11.5-14.5); Red Blood Cell (RBC) Count 2.72 mill/uL (4.70-6.10)
[2018-10-03 05:08] LABS: Anion Gap 18 mmol/L (10-20); Calcium 8.4 mg/dL (7.8-10.44); Carbon Dioxide 26 mmol/L (23-31); Chloride 101 mmol/L (98-107); Potassium 3.7 mmol/L (3.5-5.1); Sodium 141 mmol/L (136-145)
[2018-10-03 05:14] LABS: BUN (Urea Nitrogen) 52 mg/dL (8.4-25.7); Calc. Creatinine Clearance 12 mL/min (70-130); Estimated GFR-MDRD 6; Glucose 123 mg/dL (80-115)
[2018-10-03] MEDS ORDERED: Epoetin (ESRD) 20,000 UNITS/ML SC SCH (09:15)
--- NOTE | 2018-10-03 10:00 | PRG ---
DATE OF SERVICE: 10/03/2018 SERVICE: Renal Medicine. SUBJECTIVE: Mr. Lau is a 63-year-old white male with ESRD, on peritoneal dialysis and admitted for shortness of breath with hypoxemia. He did undergo left-sided pleural drainage, about 1.7 L of pleural fluid was withdrawn. As per discussion with his air brush decorator, Dr. Hercules, it is suggestive of an exudate. In addition, we were able to remove 3.2 L of fluid with a peritoneal dialysis yesterday. Cardiology has evaluated this patient. Possible planned cardiac cath is being entertained. No new complaints today. No chest pain or shortness of breath. OBJECTIVE: VITAL SIGNS: Blood pressure is 154/85, heart rate 87, respiratory rate 19, and pulse ox 96%. GENERAL: Noted to be awake, supine, comfortable, not in distress. SKIN: Adequate turgor. HEENT: He has had a slightly pale conjunctivae. Anicteric sclerae. NECK: No neck mass. No carotid bruits. No JVD. CHEST: No deformities. LUNGS: Clear breath sounds. HEART: Normal sinus rhythm. No murmur. No gallops. No rubs. ABDOMEN: Globular, soft, nontender. No masses. Positive for PD catheter. EXTREMITIES: No edema. No deformities. MEDICATIONS: Medications of October 03, 2018, were reviewed. LABORATORY DATA: Laboratories of October 03, 2018; white count 14 and hemoglobin 8.5. Sodium 141, potassium 3.7, chloride 101, carbon dioxide 26, BUN 52, creatinine 8.69, glucose 123, and calcium 8.4. Troponin I is 11.2. ASSESSMENT AND PLAN: 1. End-stage renal disease, stable. We will continue current peritoneal dialysis regimen. Fluid removal only as tolerated. No changes will be made with this PD regimen. 2. Left pleural effusion, status post drainage of the pleural effusion - 1.7 L removed. As per discussion with Pulmonary Medicine, this is an exudate. Awaiting the results of the other testing. 3. Elevated troponin I for a planned cardiac cath. 4. Anemia. Resume Epogen 7500 units subcu weekly. 5. Agree with current management. Job ID: [id number]
--- NOTE | 2018-10-03 10:47 | PRG ---
DATE OF SERVICE: 10/03/2018 SERVICE: Pulmonary Medicine. INTERVAL HISTORY: The patient is doing fine from respiratory standpoint. Breathing comfortably. He has no complaints of chest discomfort nausea or vomiting. He got nearly 2 L of pleural fluid removed yesterday. In addition to that, he had 3 L removed through dialysis yesterday evening. He indicates that he is breathing much better. PHYSICAL EXAMINATION: VITAL SIGNS: Afebrile, pulse 86, blood pressure 144/68, respirations 16, saturation 100% on room air. GENERAL: The patient is awake and alert, in no apparent distress. LUNGS: Much improved air entry on the left. No prolonged expiratory phase. I do not appreciate any crackles today. HEART: Normal rate and regular. ABDOMEN: Soft, nontender, nondistended. Bowel sounds are positive. MUSCULOSKELETAL: No cyanosis or clubbing. No pitting in the bilateral lower extremities. NEUROLOGIC: Grossly nonfocal. LABORATORY DATA: WBC 14.0, hemoglobin 8.5, platelets 323,000. Basic metabolic profile is essentially unremarkable. Troponin is 11.2. Body fluid culture is consistent with a week exudate. Glucose is normal, pleural fluid amylase is less than 30, total protein 3.0, triglycerides remain low. Fluid lymphocyte count is 48%, non-hematological cells represent 44%. There is no significant neutrophils present. PH is 7.8. Body fluid cultures negative today. Cytology is currently pending. ASSESSMENT: 1. Acute hypoxic respiratory failure, resolved. 2. Pleural effusion, weak lymphocytic exudate. 3. End-stage renal disease, on peritoneal dialysis. 4. Dyt-BG-rltnzudpi myocardial infarction, secondary to demand. 5. History of pancreatic cancer. DISCUSSION AND PLAN: The patient is stable for transition out of the IMCU to the telemetry unit. Pulmonary/Critical Care will continue to follow along for the time being. We are either dealing with a pseudoexudate or a weak inflammatory process. Multiple studies are currently pending including cytology. I will add an adenosine deaminase to the pleural fluid studies. Pulmonary will continue to follow for now. Job ID: [id number] [facility]
[2018-10-03] MEDS ORDERED: Aspirin 325 mg Enteric Coated Tablet PO SCH (11:15)
[2018-10-03] MEDS ORDERED: EPOETIN ALFA-EPBX (ESRD) 10,000 UNIT/ML VIAL SC SCH (12:00)
--- NOTE | 2018-10-03 14:20 | PDOC.PN ---
- Subjective Encounter Start Date: 10/03/18 Encounter Start Time: 11:00 Says he is doing ok. Only need request is for something to help him sleep at night. Has used ambien in the past. Helps initiate sleep, but does not maintain. - Objective Resuscitation Status - Order Detail: 10/02/18 05:44 Resuscitation Status Routine Resuscitation Status: FULL: Full Resuscitation Vital Signs & Weight: Vital Signs (12 hours) Temp Pulse Resp BP Pulse Ox 10/03/18 10:35 98.9 F 10/03/18 08:00 96 10/03/18 07:09 99.2 F 10/03/18 04:00 98.7 F 82 20 132/61 96 Weight Weight 210 lb 3 oz Most Recent Monitor Data Heart Rate from ECG 90 NIBP 140/59 NIBP BP-Mean 86 Respiration from ECG 31 SpO2 98 I&O: 10/02/18 10/03/18 10/04/18 06:59 06:59 06:59 Intake Total 690 Output Total 680 Balance 10 Result Diagrams: 10/03/18 04:33 10/03/18 04:33 Additional Labs: Accuchecks 10/03/18 10/03/18 10/02/18 10:23 00:22 16:23 POC Glucose 116 H 140 H 105 Phys Exam - Physical Examination Constitutional: NAD Respiratory: no wheezing, no rales, no rhonchi, clear to auscultation bilateral Cardiovascular: RRR Multicomponent systolic and likely diastolic M over entire precordium. PMI slightly medial. Gastrointestinal: soft, non-tender, no distention, positive bowel sounds Musculoskeletal: no edema Psychiatric: normal affect, A&O x 3 Dx/Plan (1) Acute respiratory failure with hypoxia Code(s): J96.01 - ACUTE RESPIRATORY FAILURE WITH HYPOXIA Status: Acute (2) Diabetes mellitus type 2 in obese Code(s): E11.9 - TYPE 2 DIABETES MELLITUS WITHOUT COMPLICATIONS; E66.9 - OBESITY , UNSPECIFIED Status: Acute (3) Heart failure Code(s): I50.9 - HEART FAILURE, UNSPECIFIED Status: Acute (4) Hypothyroidism Code(s): E03.9 - HYPOTHYROIDISM, UNSPECIFIED Status: Acute (5) Pleural effusion Code(s): J90 - PLEURAL EFFUSION, NOT ELSEWHERE CLASSIFIED Status: Acute (6) Shortness of breath Code(s): R06.02 - SHORTNESS OF BREATH Status: Acute (7) End stage renal disease Code(s): N18.6 - END STAGE RENAL DISEASE Status: Chronic (8) Hypertension Code(s): I10 - ESSENTIAL (PRIMARY) HYPERTENSION Status: Chronic - Plan * Add sleep aid. * Had thoracentesis. * ECHO today. * Pending heart cath tomorrow. * Continue PD. * Nephrology, Cardiology, Pulmonology following. * Resuming home meds. Trying to clarify dosing.
[2018-10-03] MEDS: hydrALAZINE 25 MG TAB PO SCH ×2 (15:54→20:42)
--- NOTE | 2018-10-03 17:11 | PDOC.CTH ---
Cardiology Progress Note - Subjective He is doing well. No chest pain. - Objective Vital Signs Temp Pulse BP Pulse Ox 10/03/18 15:54 82 160/62 H 10/03/18 15:16 99.6 F 10/03/18 10:35 98.9 F 10/03/18 08:00 96 10/03/18 07:09 99.2 F Weight 210 lb 3 oz 10/02/18 10/03/18 10/04/18 06:59 06:59 06:59 Intake Total 690 Output Total 680 Balance 10 - Physical Examination General/Neuro: alert & oriented x3, NAD Neck: no JVD present Lungs: CTA, unlabored respirations Heart: RRR Abdomen: NT/ND Extremities: other: (no edema) - Telemetry Telemetry Rhythm: NSR - Labs Result Diagrams: 10/03/18 04:33 10/03/18 04:33 Troponin/CKMB CK-MB (CK-2) 3.9 ng/mL (0-6.6) 10/02/18 01:19 Troponin I 11.205 ng/mL (< 0.028) H* 10/02/18 07:47 - Assessment/Plan 1. NSTEMI, possibly demand ischemia. 2. Acute on chronic systolic heart failure. 3. ESRD 4. Lareg left sided pleural effusion 5. Ascending aortic aneurysm s/p repair and bioprosthetic AVR. 6. S/P CABG x 4 PLAN: - Will do [facility] tomorrow. - EF at 40-45% from 45-50% on echo 6 months ago. - Risks and benefits discussed and he agrees to proceed.
[2018-10-03 17:22] LABS: HBSAg Index 0.33 S/CO (0-0.99); Hep B Surf Ag Non-Reactive S/CO (NonReactive)
[2018-10-03] MEDS: Carvedilol 6.25 MG TAB PO SCH (20:43)
[2018-10-03] MEDS: Simvastatin 5 MG TAB PO SCH (20:43)
[2018-10-03] MEDS: Zolpidem Tartrate 5 MG TAB PO PRN (20:44)
[2018-10-03] MEDS: Metoclopramide HCl 10 MG TAB PO SCH (20:44)
[2018-10-03] MEDS: Melatonin 3 MG TAB PO PRN (20:45)
[2018-10-03] MEDS ORDERED: EPOETIN ALFA-EPBX (ESRD) 4,000 UNIT/ML VIAL SC SCH (21:00)
[2018-10-04] MEDS: Levothyroxine 150 MCG TAB PO SCH (06:31)
[2018-10-04] MEDS: hydrALAZINE 25 MG TAB PO SCH ×3 (06:31→21:08)
[2018-10-04] MEDS ORDERED: Iopamidol 370 76% 100 ML VIAL ONE (08:56)
[2018-10-04] MEDS ORDERED: NIFEDIPINE PO SCH (09:00)
[2018-10-04] MEDS ORDERED: Non-Formulary Item 1 EACH (Losartan Potassium [Losartan Potassium] 1 TAB) PO SCH (09:00)
--- NOTE | 2018-10-04 10:16 | PRG ---
DATE OF SERVICE: 10/04/2018 SUBJECTIVE: Mr. Lau is a 63-year-old white male with ESRD, admitted for shortness of breath. He was found to have a large left pleural effusion. He underwent thoracentesis with about 1.7 L fluid removal done. He was also admitted with an elevated troponin I. Cardiology has evaluated this patient. The plan is to do a left heart catheterization later today. Please note, his repeat cardiac echo showed an EF of 40% to 45%. In addition, there is some finding of diastolic dysfunction. He is complaining of some back pain today. Denies any chest pain or shortness of breath. OBJECTIVE: VITAL SIGNS: Blood pressure 123/55, heart rate 54, respiratory rate 21, and pulse ox 100%. GENERAL: Awake, supine, comfortable, lethargic. SKIN: Adequate turgor. HEENT: He has slightly pale conjunctivae. Anicteric sclerae. NECK: No neck mass. No carotid bruits. No JVD. CHEST: No deformities. LUNGS: Decreased breath sounds. HEART: Normal sinus rhythm. No murmur. No gallops. No rubs. ABDOMEN: Globular, soft, and nontender. No masses. Positive for PD catheter. EXTREMITIES: No edema. MEDICATIONS: Medications of October 04, 2018, was reviewed. LABORATORY DATA: laboratories of October 03, 2018; sodium 141, potassium 3.7, chloride 101, carbon dioxide 26, BUN 52, creatinine 8.69, glucose 123, and calcium 8.4. On October 04, 2018; glucose 141. White count 14, hemoglobin 8.5. ASSESSMENT AND PLAN: 1. Anemia - currently on weekly Epogen. 2. Elevated troponin I for cardiac catheterization. Cardiology is following. Clinically asymptomatic. 3. End-stage renal disease - continue current CCPD regimen. Tolerating ultrafiltration with a PD regimen. No changes to be made. 4. Large left pleural effusion, status post thoracentesis. Breathing better. Overall, agree with current management. Job ID: [id number]
[2018-10-04] MEDS: Carvedilol 6.25 MG TAB PO SCH ×2 (11:49→21:08)
[2018-10-04] MEDS: Aspirin 325 mg Enteric Coated Tablet PO SCH (11:49)
[2018-10-04] MEDS ORDERED: Fentanyl 100 MCG/2 ML VIAL ONE ×2 (13:11→13:45)
--- NOTE | 2018-10-04 16:45 | PDOC.PN ---
- Subjective Encounter Start Date: 10/04/18 Encounter Start Time: 10:55 Subjective: pt up in bed complains of pain all over - Objective Resuscitation Status - Order Detail: 10/02/18 05:44 Resuscitation Status Routine Resuscitation Status: FULL: Full Resuscitation MAR Reviewed: Yes Vital Signs & Weight: Vital Signs (12 hours) Temp BP Pulse Ox 10/04/18 16:00 98.2 F 10/04/18 11:49 123/55 L 10/04/18 11:45 97.0 F L 10/04/18 11:31 97.0 F L 10/04/18 08:00 100 10/04/18 07:17 97.2 F L 10/04/18 06:31 123/55 L Weight Weight 210 lb 3 oz Most Recent Monitor Data Heart Rate from ECG 68 NIBP 134/66 NIBP BP-Mean 88 Respiration from ECG 20 SpO2 100 I&O: 10/03/18 10/04/18 10/05/18 06:59 06:59 06:59 Intake Total 690 930 Output Total 680 225 Balance 10 705 Result Diagrams: 10/03/18 04:33 10/03/18 04:33 Additional Labs: Accuchecks 10/04/18 10/04/18 10/03/18 11:04 05:32 19:56 POC Glucose 101 141 H 125 H Phys Exam - Physical Examination Neck: no nodes, no JVD, supple, full ROM Respiratory: no wheezing, no rales, no rhonchi, wheezing present, clear to auscultation bilateral Cardiovascular: RRR, no significant murmur, no rub, gallop, irregular Gastrointestinal: soft, non-tender, no distention, positive bowel sounds Dx/Plan (1) Acute respiratory failure with hypoxia Code(s): J96.01 - ACUTE RESPIRATORY FAILURE WITH HYPOXIA Status: Acute (2) Acute kidney injury Code(s): N17.9 - ACUTE KIDNEY FAILURE, UNSPECIFIED Status: Acute (3) Diabetes mellitus type 2 in obese Code(s): E11.9 - TYPE 2 DIABETES MELLITUS WITHOUT COMPLICATIONS; E66.9 - OBESITY , UNSPECIFIED Status: Acute (4) Hypothyroidism Code(s): E03.9 - HYPOTHYROIDISM, UNSPECIFIED Status: Acute - Plan s/p cardiac cath, pending report -: will continue home meds -: Pt on PD * . Review of Systems - Review of Systems Respiratory: negative: Cough, Dry, Shortness of Breath, Hemoptysis, SOB with Excertion, Pleuritic Pain, Sputum, Wheezing Cardiovascular: negative: chest pain, palpitations, orthopnea, paroxysmal nocturnal dyspnea, edema, light headedness, other Gastrointestinal: negative: Nausea, Vomiting, Abdominal Pain, Diarrhea, Constipation, Melena, Hematochezia, Other Musculoskeletal: Other (pain all over) - Medications/Allergies Allergies/Adverse Reactions: Allergies Allergy/AdvReac Type Severity Reaction Status Date / Time No Known Allergies Allergy Verified 10/02/18 06:07 Medications: Current Medications Acetaminophen (Tylenol) 650 mg PO Q4H PRN PRN Reason: Headache/Fever/Mild Pain (1-3) Acetaminophen (Tylenol) 650 mg [place] Q4H PRN PRN Reason: Headache/Fever/Mild Pain (1-3) Acetaminophen (Tylenol) 650 mg PO Q4H PRN PRN Reason: Headache/Fever/Mild Pain (1-3) Aspirin (Ecotrin) 325 mg PO DAILY FOR[facility]LY [facility], [facility]1983 Last Admin: 10/04/18 11:49 Dose: Not Given Carvedilol (Coreg) 12.5 mg PO BID [facility], [facility]1983 Last Admin: 10/04/18 11:49 Dose: Not Given Dextrose/Water (Dextrose 50%) 25 gm SLOW IVP PRN PRN PRN Reason: Hypoglycemia Epoetin Jose Alberto-epbx (Retacrit) 7,500 unit SC Q7D [facility], [facility]1983 Last Admin: 10/03/18 20:53 Dose: 7,500 unit Glucagon (Glucagon) 1 mg IM PRN PRN PRN Reason: Hypoglycemia Hydralazine HCl (Apresoline) 100 mg PO TID [facility], [facility]1983 Last Admin: 10/04/18 06:31 Dose: 100 mg Dextrose/Water (D5w) 1,000 mls @ 0 mls/hr IV .Q0M PRN PRN Reason: Hypoglycemia Levofloxacin 500 mg/ Device 100 mls @ 100 mls/hr IVPB Q2D [facility], [facility]1983 Last Admin: 10/04/18 06:29 Dose: 100 mls Insulin Human Regular (Humulin R) 0 units SC .MILD SLIDING SCALE PRN PRN Reason: Mild Correctional Scale Isosorbide Mononitrate (Imdur Er) 30 mg PO HS [facility], [facility] Last Admin: 10/03/18 20:43 Dose: 30 mg Levothyroxine Sodium (Synthroid) 150 mcg PO 0600 [facility], [facility] Last Admin: 10/04/18 06:31 Dose: 150 mcg Melatonin (Melatonin) 3 mg PO HS PRN PRN Reason: Insomnia Last Admin: 10/03/18 20:45 Dose: 3 mg Metoclopramide HCl (Reglan) 10 mg PO HS [facility], [facility] Last Admin: 10/03/18 20:44 Dose: 10 mg Ondansetron HCl (Zofran Odt) 4 mg PO Q6H PRN PRN Reason: Nausea/Vomiting Ondansetron HCl (Zofran) 4 mg IVP Q6H PRN PRN Reason: Nausea/Vomiting Pantoprazole Sodium (Protonix) 40 mg PO DAILY [facility], [facility] Last Admin: 10/04/18 06:31 Dose: 40 mg Simvastatin (Zocor) 10 mg PO HS [facility], [facility] Last Admin: 10/03/18 20:43 Dose: 10 mg Zolpidem Tartrate (Ambien) 5 mg PO HSPRN PRN PRN Reason: Insomnia Last Admin: 10/03/18 20:44 Dose: 5 mg
--- NOTE | 2018-10-04 16:56 | PRG ---
DATE OF SERVICE: 10/04/2018 SERVICE: Pulmonary Medicine. INTERVAL HISTORY: The patient is doing fine from respiratory standpoint. Breathing comfortably. There has been no interval change to his condition. He denies any current chest pain, fevers, or chills. He is not having any shortness of breath, and he has been weaned down to 2 L nasal cannula. PHYSICAL EXAMINATION: VITAL SIGNS: Afebrile. Pulse 73, blood pressure 138/63, respirations 20, saturation 100% on 2 L nasal cannula. GENERAL: The patient is awake and alert, in no apparent distress. LUNGS: Decent air entry. There is no prolonged expiratory phase. No wheezing or crackles are appreciated. HEART: Normal rate, regular. ABDOMEN: Soft, nontender, and nondistended. Bowel sounds are positive. MUSCULOSKELETAL: No cyanosis or clubbing. No pitting in the bilateral lower extremities. NEUROLOGIC: Grossly nonfocal. LABORATORY DATA: Creatinine 8.69. Basic metabolic profile is otherwise unremarkable. Pleural fluid is consistent with weak lymphocytic exudate with a normal glucose. Fungal smear is pending. All cultures are negative to date. Pathology shows no malignant cells in the pleural fluid. IMAGING: Echocardiogram shows reduced ejection fraction of 40% to 45% with 2/3 diastolic dysfunction as well as mitral regurgitation, elevated right ventricular systolic function, and depressed RV function. ASSESSMENT: 1. Acute hypoxic respiratory failure. 2. Pleural effusion, weak lymphocytic exudate, cytology negative for malignancy. 3. End-stage renal disease, on peritoneal dialysis. 4. Lpu-JQ-bplcqbbaq myocardial infarction, likely secondary to demand. 5. History of pancreatic cancer. DISCUSSION AND PLAN: I will repeat chest x-ray tomorrow morning. We will also check an STEFFANIE and rheumatoid factor, looking for connective tissue disease as that could contribute to lymphocytic exudate. He will require repeat chest x-ray in the outpatient setting in 4 to 6 weeks to make certain the effusion does not return. Pulmonary/Critical Care will continue to follow along for the time being. Job ID: [id number]
[2018-10-04] MEDS: Simvastatin 5 MG TAB PO SCH (21:08)
[2018-10-04] MEDS: Metoclopramide HCl 10 MG TAB PO SCH (21:08)
[2018-10-04] MEDS: Zolpidem Tartrate 5 MG TAB PO PRN (21:08)
[2018-10-04] MEDS: Melatonin 3 MG TAB PO PRN (21:08)
[2018-10-05] MEDS: Levothyroxine 150 MCG TAB PO SCH (05:08)
--- NOTE | 2018-10-05 08:09 | RAD ---
XR Chest 1 View Portable HISTORY: Pleural effusion, recent thoracenteses COMPARISON: 10/02/2018 FINDINGS: There are changes of median sternotomy. The heart is enlarged. There is mild interval impro vement in the size of the left pleural effusion. Opacity in the left lung base is again seen. No pneumothoraces are identified.
[2018-10-05] MEDS ORDERED: Sodium Chloride 0.9% 10 ML ONE (09:42)
[2018-10-05] MEDS: Aspirin 325 mg Enteric Coated Tablet PO SCH (09:46)
[2018-10-05] MEDS: Carvedilol 6.25 MG TAB PO SCH ×2 (09:46→20:13)
[2018-10-05] MEDS: hydrALAZINE 25 MG TAB PO SCH ×3 (09:47→20:14)
--- NOTE | 2018-10-05 09:59 | PRG ---
DATE OF SERVICE: 10/05/2018 SUBJECTIVE: Mr. Lau is a 63-year-old white male admitted for shortness of breath. He has had thoracentesis. Choke Setter also reevaluated this patient. His last cardiac echo showed a mild decrease in EF. He also was found to have diastolic dysfunction. We are following up this patient for his maintenance peritoneal dialysis. He did undergo peritoneal dialysis last night without any difficulty. No new complaints today. Breathing is better. OBJECTIVE: VITAL SIGNS: Blood pressure 111/56, heart rate 60, respiratory rate 23, pulse ox is 100%. GENERAL: Awake, alert, comfortable, not in overt distress. SKIN: Adequate turgor. HEENT: He has pinkish conjunctivae. Anicteric sclerae. NECK: No neck mass. No carotid bruits. No JVD. CHEST: No deformities. LUNGS: Clear breath sounds. HEART: Normal sinus rhythm. No murmurs, gallops, or rubs. ABDOMEN: Globular, soft, nontender. No masses. EXTREMITIES: No edema. No deformities. He does have a PD catheter. MEDICATIONS: Medications of October 05, 2018, reviewed. LABORATORY DATA: Laboratories of October 03, 2018, white count 14, hemoglobin 8.5. October 05, 2018, glucose 122. ASSESSMENT AND PLAN: 1. End-stage renal disease stable. We will continue current CCPD regimen. Fluid removal only as tolerated. 2. Anemia. Continuing weekly Epogen with this patient, p.r.n. blood transfusion. 3. Elevated troponin I-the patient is status post cardiac cath. Awaiting official report by the sales market leader. 4. Left pleural effusion, status post thoracentesis. Breathing better. Pulmonary is following. 5. Recheck basic metabolic panel and CBC in the morning. Job ID: [id number]
--- NOTE | 2018-10-05 11:31 | PDOC.CTH ---
Cardiology Progress Note - Subjective Walking around with PT. Still SOB but better. - Objective Vital Signs Temp Pulse Resp BP BP Pulse Ox 10/05/18 09:47 64 148/63 H 10/05/18 09:46 148/63 H 10/05/18 09:38 98.2 F 64 16 148/63 H 93 L 10/05/18 07:24 97.8 F 10/05/18 03:54 98.2 F 10/04/18 23:54 99.1 F Weight 212 lb 10/04/18 10/05/18 10/06/18 06:59 06:59 06:59 Intake Total 930 240 Output Total 225 600 Balance 705 -360 - Physical Examination General/Neuro: alert & oriented x3, NAD Neck: no JVD present Lungs: unlabored respirations Heart: RRR Abdomen: NT/ND Extremities: + edema B (1+) - Telemetry Telemetry Rhythm: NSR - Labs Result Diagrams: 10/03/18 04:33 10/03/18 04:33 Troponin/CKMB CK-MB (CK-2) 3.9 ng/mL (0-6.6) 10/02/18 01:19 Troponin I 11.205 ng/mL (< 0.028) H* 10/02/18 07:47 - Assessment/Plan 1. NSTEMI, demand ischemia. 2. Acute on chronic systolic heart failure. 3. ESRD 4. Large left sided pleural effusion s/p thoracentesis. 5. Ascending aortic aneurysm s/p repair and bioprosthetic AVR. 6. S/P CABG x 4 7. Patent PATEL to LAD. Other 3 grafts not found, no competitive flow seen in [place] coronaries. 8. EF at 40-45% 9. Hx of Pancreatic Ca in remission, no malignant cells on pleural fluid. PLAN: - Continue current medical therapy. - CXR shows still some fluid on left pleural space but better. - Would try to increase filtration on PD to try to dry some more. - Will follow .
--- NOTE | 2018-10-05 14:33 | PRG ---
DATE OF SERVICE: 10/05/2018 SERVICE: Pulmonary Medicine. INTERVAL HISTORY: The patient is doing really well from respiratory standpoint. Denies any current chest pain, fevers, cough, or sputum production. Otherwise, he has essentially returned to his usual state of health. PHYSICAL EXAMINATION: VITAL SIGNS: Afebrile. Pulse 79, blood pressure 141/64, respirations 14, and saturation 93% on room air. GENERAL: The patient is awake and alert, in no apparent distress. LUNGS: Decent air entry. No prolonged expiratory phase or wheezing present. HEART: Normal rate, regular. ABDOMEN: Soft, nontender, nondistended. Bowel sounds are positive. MUSCULOSKELETAL: No cyanosis or clubbing. There is no pitting in the bilateral lower extremities. NEUROLOGIC: Grossly nonfocal. LABORATORY DATA: Blood sugar ranges from 91 to 141. Cultures remained negative to date. IMAGING DATA: Chest x-ray demonstrates mild improvement in the size of the left pleural effusion. No pneumothorax is identified. ASSESSMENT: 1. Acute hypoxic respiratory failure. 2. Pleural effusion, weak lymphocytic exudate, cytology negative for malignancy. 3. End-stage renal disease, on peritoneal dialysis. 4. Wao-JQ-vuovyramp myocardial infarction, likely secondary to demand. 5. History of pancreatic cancer. DISCUSSION AND PLAN: The patient is doing fine from respiratory standpoint. At this point, he is stable for transition out of the ICU to the medical unit. Pulmonary/Critical Care will continue to follow along, intermittently while the patient remains inhouse. He will require repeat chest x-ray in 4 to 6 weeks in the outpatient setting. If there is a return of this pleural effusion, additional diagnostic studies will need to be considered. Job ID: [id number]
[2018-10-05] MEDS: Acetaminophen 325 MG TAB PO PRN ×2 (15:33→20:14)
--- NOTE | 2018-10-05 16:20 | PDOC.PN ---
- Subjective Encounter Start Date: 10/05/18 Encounter Start Time: 11:00 Subjective: pt up in bed no complains - Objective Resuscitation Status - Order Detail: 10/02/18 05:44 Resuscitation Status Routine Resuscitation Status: FULL: Full Resuscitation Vital Signs & Weight: Vital Signs (12 hours) Temp Pulse Pulse Pulse Resp BP BP 10/05/18 15:33 75 122/59 L 10/05/18 15:29 98.8 F 75 10/05/18 12:15 97.8 F 79 14 10/05/18 10:30 68 75 141/64 H 10/05/18 09:47 64 148/63 H 10/05/18 09:46 148/63 H 10/05/18 09:38 98.2 F 64 16 10/05/18 07:24 97.8 F BP BP Pulse Ox 10/05/18 15:33 10/05/18 15:29 122/59 L 96 10/05/18 12:15 93 L 10/05/18 10:30 154/65 H 10/05/18 09:47 10/05/18 09:46 10/05/18 09:38 148/63 H 93 L 10/05/18 07:24 Weight Weight 212 lb Most Recent Monitor Data Heart Rate from ECG 60 NIBP 111/46 NIBP BP-Mean 67 Respiration from ECG 23 SpO2 100 I&O: 10/04/18 10/05/18 10/06/18 06:59 06:59 06:59 Intake Total 930 240 Output Total 225 600 Balance 705 -360 Result Diagrams: 10/03/18 04:33 10/03/18 04:33 Additional Labs: Accuchecks 10/05/18 10/05/18 10/04/18 12:30 05:10 20:12 POC Glucose 136 H 122 H 116 H 10/04/18 16:37 POC Glucose 91 Phys Exam - Physical Examination Neck: no nodes, no JVD, supple, full ROM Respiratory: no wheezing, no rales, no rhonchi, wheezing present, clear to auscultation bilateral Cardiovascular: RRR, no significant murmur, no rub, gallop, irregular Gastrointestinal: soft, non-tender, no distention, positive bowel sounds Dx/Plan (1) Acute respiratory failure with hypoxia Code(s): J96.01 - ACUTE RESPIRATORY FAILURE WITH HYPOXIA Status: Acute (2) Acute kidney injury Code(s): N17.9 - ACUTE KIDNEY FAILURE, UNSPECIFIED Status: Acute (3) Diabetes mellitus type 2 in obese Code(s): E11.9 - TYPE 2 DIABETES MELLITUS WITHOUT COMPLICATIONS; E66.9 - OBESITY , UNSPECIFIED Status: Acute (4) Hypothyroidism Code(s): E03.9 - HYPOTHYROIDISM, UNSPECIFIED Status: Acute - Plan s/p cardiac cath recommended medical managment -: pt's pleural effusion indicates 48% lympyhocytes -: He has a hx of pancreatic ca, will need repeat cxr and follow up -: However his ph is 7.8 not consistant with malignant effusion -: His cytology is negative which does not rule malignancy out. Review of Systems - Review of Systems Respiratory: negative: Cough, Dry, Shortness of Breath, Hemoptysis, SOB with Excertion, Pleuritic Pain, Sputum, Wheezing Cardiovascular: negative: chest pain, palpitations, orthopnea, paroxysmal nocturnal dyspnea, edema, light headedness, other Gastrointestinal: negative: Nausea, Vomiting, Abdominal Pain, Diarrhea, Constipation, Melena, Hematochezia, Other - Medications/Allergies Allergies/Adverse Reactions: Allergies Allergy/AdvReac Type Severity Reaction Status Date / Time No Known Allergies Allergy Verified 10/02/18 06:07 Medications: Current Medications Acetaminophen (Tylenol) 650 mg PO Q4H PRN PRN Reason: Headache/Fever/Mild Pain (1-3) Acetaminophen (Tylenol) 650 mg [place] Q4H PRN PRN Reason: Headache/Fever/Mild Pain (1-3) Acetaminophen (Tylenol) 650 mg PO Q4H PRN PRN Reason: Headache/Fever/Mild Pain (1-3) Last Admin: 10/05/18 15:33 Dose: 650 mg Aspirin (Ecotrin) 325 mg PO DAILY [facility] Last Admin: 10/05/18 09:46 Dose: 325 mg Carvedilol (Coreg) 12.5 mg PO BID [facility] Last Admin: 10/05/18 09:46 Dose: 12.5 mg Dextrose/Water (Dextrose 50%) 25 gm SLOW IVP PRN PRN PRN Reason: Hypoglycemia Epoetin Jose Alberto-epbx (Retacrit) 7,500 unit SC Q7D [facility] Last Admin: 10/03/18 20:53 Dose: 7,500 unit Glucagon (Glucagon) 1 mg IM PRN PRN PRN Reason: Hypoglycemia Hydralazine HCl (Apresoline) 100 mg PO TID [facility] Last Admin: 10/05/18 15:33 Dose: 100 mg Dextrose/Water (D5w) 1,000 mls @ 0 mls/hr IV .Q0M PRN PRN Reason: Hypoglycemia Levofloxacin 500 mg/ Device 100 mls @ 100 mls/hr IVPB Q2D [facility] Last Admin: 10/04/18 06:29 Dose: 100 mls Insulin Human Regular (Humulin R) 0 units SC .MILD SLIDING SCALE PRN PRN Reason: Mild Correctional Scale Isosorbide Mononitrate (Imdur Er) 30 mg PO HS [facility] Last Admin: 10/04/18 21:08 Dose: 30 mg Levothyroxine Sodium (Synthroid) 150 mcg PO 0600 [facility] Last Admin: 10/05/18 05:08 Dose: 150 mcg Melatonin (Melatonin) 3 mg PO HS PRN PRN Reason: Insomnia Last Admin: 10/04/18 21:08 Dose: 3 mg Metoclopramide HCl (Reglan) 10 mg PO [facility] Last Admin: 10/04/18 21:08 Dose: 10 mg Ondansetron HCl (Zofran Odt) 4 mg PO Q6H PRN PRN Reason: Nausea/Vomiting Ondansetron HCl (Zofran) 4 mg IVP Q6H PRN PRN Reason: Nausea/Vomiting Pantoprazole Sodium (Protonix) 40 mg PO DAILY [facility] Last Admin: 10/05/18 09:47 Dose: 40 mg Simvastatin (Zocor) 10 mg PO [facility] Last Admin: 10/04/18 21:08 Dose: 10 mg Zolpidem Tartrate (Ambien) 5 mg PO HSPRN PRN PRN Reason: Insomnia Last Admin: 10/04/18 21:08 Dose: 5 mg
[2018-10-05] MEDS: Melatonin 3 MG TAB PO PRN (20:13)
[2018-10-05] MEDS: Simvastatin 5 MG TAB PO SCH (20:13)
[2018-10-05] MEDS: Metoclopramide HCl 10 MG TAB PO SCH (20:14)
[2018-10-05] MEDS: Zolpidem Tartrate 5 MG TAB PO PRN (20:15)
[2018-10-06] MEDS: Levothyroxine 150 MCG TAB PO SCH (05:35)
[2018-10-06 07:36] LABS: #Eosinphils 0.4 thou/uL (0.0-0.7); #Lymphocytes 1.3 thou/uL (1.20-3.40); #Monocytes 1.3 thou/uL (0.11-0.59); #Neutrophils 9.7 thou/uL (1.40-6.50); %Basophils 0.3 % (0.0-1.0); %Lymphocytes 10.4 % (21.0-51.0); %Monocytes 10.1 % (0.0-10.0); %Neutrophils 76.2 % (42.0-75.0); Hemoglobin 7.9 g/dL (14.0-18.0); Mean Corpuscular HGB CONC 30.8 g/dL (32.0-36.0); Mean Corpuscular Hemoglobin 31.2 pg (27.0-31.0); Mean Platelet Volume 9.3 fL (7.4-10.4); Platelet Count 347 thou/uL (130-400); RBC Distribution Width 13.8 % (11.5-14.5); Red Blood Cell (RBC) Count 2.53 mill/uL (4.70-6.10); White Blood Cell (WBC) Count 12.7 thou/uL (4.8-10.8)
[2018-10-06 07:44] LABS: Anion Gap 17 mmol/L (10-20); BUN (Urea Nitrogen) 62 mg/dL (8.4-25.7); Calc. Creatinine Clearance 11 mL/min (70-130); Calcium 8.2 mg/dL (7.8-10.44); Carbon Dioxide 28 mmol/L (23-31); Chloride 98 mmol/L (98-107); Estimated GFR-MDRD 6; Glucose 121 mg/dL (80-115); Potassium 4.1 mmol/L (3.5-5.1); Sodium 139 mmol/L (136-145)
[2018-10-06] MEDS ORDERED: Sodium Chloride 0.9% 10 ML ONE (08:44)
[2018-10-06] MEDS: Aspirin 325 mg Enteric Coated Tablet PO SCH (09:03)
[2018-10-06] MEDS: hydrALAZINE 25 MG TAB PO SCH ×3 (09:03→20:02)
[2018-10-06] MEDS: Carvedilol 6.25 MG TAB PO SCH ×2 (09:03→20:02)
[2018-10-06] MEDS: Acetaminophen 325 MG TAB PO PRN ×3 (09:04→20:03)
[2018-10-06] MEDS: Polyethylene Glycol 3350 17 GM Packet PO SCH (09:17)
--- NOTE | 2018-10-06 09:18 | PDOC.CTH ---
Cardiology Progress Note - Subjective c/o constipation. Passing gas. otherwise stable. No complaints. - Objective Vital Signs Temp Pulse Resp BP BP Pulse Ox 10/06/18 09:03 63 147/68 H 10/06/18 08:59 97.9 F 63 17 147/68 H 100 10/06/18 04:00 97.4 F L 57 L 20 138/63 92 L Weight 209 lb 6.4 oz 10/05/18 10/06/18 10/07/18 06:59 06:59 06:59 Intake Total 240 940 Output Total 600 325 Balance -360 615 - Physical Examination General/Neuro: alert & oriented x3 Neck: no JVD present Lungs: CTA, other: (decreased BS left side) Heart: RRR, other: (3/6 WILMA at LSB) Abdomen: soft, other: (+BS) Extremities: other: (no edema) - Telemetry Telemetry Rhythm: SR - Labs Result Diagrams: 10/06/18 07:09 10/06/18 07:09 Troponin/CKMB CK-MB (CK-2) 3.9 ng/mL (0-6.6) 10/02/18 01:19 Troponin I 11.205 ng/mL (< 0.028) H* 10/02/18 07:47 - Assessment/Plan 1. NSTEMI, demand ischemia. 2. Acute on chronic systolic heart failure. EF 40-45% 3. ESRD 4. Left sided pleural effusion s/p thoracentesis. 5. Ascending aortic aneurysm s/p repair and bioprosthetic AVR. 6. S/P CABG x 4 7. Patent PATEL to LAD. Other 3 grafts not found, no competitive flow seen in [place] coronaries. 8. Hx of Pancreatic Ca in remission, no malignant cells on pleural fluid. PLAN: Miralax ordered by primary team. Stable cardiac status. Continue dialysis. Effusion stable. Placement planning. Agree with above. No new changes. Pt appears weak and deconditioned. Placement will be needed
--- NOTE | 2018-10-06 10:26 | EKG ---
Test Reason : Blood Pressure : / mmHG Vent. Rate : 098 BPM Atrial Rate : 098 BPM P-R Int : 174 ms QRS Dur : 168 ms QT Int : 454 ms P-R-T Axes : 032 055 001 degrees QTc Int : 579 ms Normal sinus rhythm Possible Left atrial enlargement Right bundle branch block Inferior infarct , age undetermined Anterior infarct , age undetermined Abnormal ECG Confirmed by LASHAE TEJEDA ([id number]), assignment editor LONDON CALVERT ([id number]) on 10/06/2018 10:25:59 AM Referred By: Confirmed By:LASHAE TEJEDA
--- NOTE | 2018-10-06 11:55 | PRG ---
DATE OF SERVICE: 10/06/2018 SUBJECTIVE: Mr. Lau is a 63-year-old white male with ESRD and followed up by the [facility] for maintenance peritoneal dialysis. Early this morning, a fibrin was noted in the PD fluid. The plan is to incorporate heparin 500 units/L of PD infusion. No other complaints. Shortness of breath is stable. The patient is currently on medical management for his coronary artery disease. NSTEMI is felt to be from demand ischemia. Please note, he also had large left pleural effusion which he underwent a thoracentesis. Breathing is better. No other complaints today. OBJECTIVE: VITAL SIGNS: Blood pressure 147/68, heart rate 63, respiratory rate 17, temperature 97.9, and pulse ox 100%. GENERAL: Noted to be awake, alert, supine, comfortable, not in overt distress. SKIN: Adequate turgor. HEENT: He has a slightly pale conjunctivae. Anicteric sclerae. No neck mass. No carotid bruits. No JVD. CHEST: No Deformities. LUNGS: Clear breath sounds. HEART: Normal sinus rhythm. No murmurs, gallops, or rubs. ABDOMEN: Globular, soft, nontender. No masses. Positive for PD catheter. EXTREMITIES: No edema. MEDICATIONS: Medications of October 06, 2018, reviewed. LABORATORY DATA: Laboratories of October 06, 2018, white count 12.7, hemoglobin 17.9, sodium 139, potassium 4.1, chloride 98, carbon dioxide 28, BUN 62, creatinine 9.22, glucose 121, and calcium 8.2. ASSESSMENT AND PLAN: 1. ESRD, stable. We will continue current peritoneal dialysis regimen. Ultrafiltration is being tolerated by the patient. No changes will be made with the current PD regimen. 2. Coronary artery disease, medical management. 3. Anemia. Continuing weekly Epogen, adjust as needed. 4. Pleural effusion-status post thoracentesis. Shortness of breath is improved. 5. Agree with current management. Recheck CBC in a.m. Job ID: [id number]
--- NOTE | 2018-10-06 12:52 | PRG ---
DATE OF SERVICE: 10/06/2018 SUBJECTIVE: The patient is doing well without complaints. OBJECTIVE: VITAL SIGNS: Temperature 97.9, pulse 63, blood pressure 147/68, and O2 saturation 100% on 2 L. HEENT: Unremarkable. NECK: No adenopathy or JVD. LUNGS: Fairly clear bilaterally. CARDIAC: S1 and S2, regular. ABDOMEN: Soft. EXTREMITIES: No edema. ASSESSMENT: 1. Acute hypoxic respiratory failure - improved. 2. Pleural effusion with a weak lymphocytic exudate with negative cytology. 3. End-stage renal disease, requiring peritoneal dialysis. 4. [id number] elevation myocardial infarction. 5. History of pancreatic cancer. PLAN: Continue low-flow oxygen as needed. Dr. Dumont will see the patient again on Monday. Job ID: [id number]
--- NOTE | 2018-10-06 14:28 | PDOC.PN ---
- Subjective Encounter Start Date: 10/06/18 Encounter Start Time: 09:45 Subjective: pt up in bed no complains - Objective Resuscitation Status - Order Detail: 10/02/18 05:44 Resuscitation Status Routine Resuscitation Status: FULL: Full Resuscitation Vital Signs & Weight: Vital Signs (12 hours) Temp Pulse Pulse Pulse Resp BP BP 10/06/18 13:32 61 63 143/61 H 10/06/18 12:50 97.5 F L 60 17 10/06/18 09:03 63 147/68 H 10/06/18 08:59 97.9 F 63 17 10/06/18 04:00 97.4 F L 57 L 20 BP BP Pulse Ox 10/06/18 13:32 142/63 H 10/06/18 12:50 141/63 H 99 10/06/18 09:03 10/06/18 08:59 147/68 H 100 10/06/18 04:00 138/63 92 L Weight Weight 209 lb 6.4 oz Most Recent Monitor Data Heart Rate from ECG 60 NIBP 111/46 NIBP BP-Mean 67 Respiration from ECG 23 SpO2 100 I&O: 10/05/18 10/06/18 10/07/18 06:59 06:59 06:59 Intake Total 240 940 Output Total 600 325 Balance -360 615 Result Diagrams: 10/06/18 07:09 10/06/18 07:09 Additional Labs: Accuchecks 10/06/18 10/06/18 10/05/18 10:52 05:35 20:09 POC Glucose 144 H 138 H 156 H 10/05/18 16:56 POC Glucose 134 H Phys Exam - Physical Examination Neck: no nodes, no JVD, supple, full ROM Respiratory: no wheezing, no rales, no rhonchi, wheezing present, clear to auscultation bilateral Cardiovascular: RRR, no significant murmur, no rub, gallop, irregular Gastrointestinal: soft, non-tender, no distention, positive bowel sounds Dx/Plan (1) Acute respiratory failure with hypoxia Code(s): J96.01 - ACUTE RESPIRATORY FAILURE WITH HYPOXIA Status: Acute (2) Acute kidney injury Code(s): N17.9 - ACUTE KIDNEY FAILURE, UNSPECIFIED Status: Acute (3) Diabetes mellitus type 2 in obese Code(s): E11.9 - TYPE 2 DIABETES MELLITUS WITHOUT COMPLICATIONS; E66.9 - OBESITY , UNSPECIFIED Status: Acute (4) Hypothyroidism Code(s): E03.9 - HYPOTHYROIDISM, UNSPECIFIED Status: Acute - Plan low hh will monitor. will transfuse if hh <7.5 given his severe -: cardiac disease. Pt continues to work with PT, will need snf * . Review of Systems - Review of Systems Respiratory: negative: Cough, Dry, Shortness of Breath, Hemoptysis, SOB with Excertion, Pleuritic Pain, Sputum, Wheezing Cardiovascular: negative: chest pain, palpitations, orthopnea, paroxysmal nocturnal dyspnea, edema, light headedness, other Gastrointestinal: negative: Nausea, Vomiting, Abdominal Pain, Diarrhea, Constipation, Melena, Hematochezia, Other - Medications/Allergies Allergies/Adverse Reactions: Allergies Allergy/AdvReac Type Severity Reaction Status Date / Time No Known Allergies Allergy Verified 10/02/18 06:07 Medications: Current Medications Acetaminophen (Tylenol) 650 mg PO Q4H PRN PRN Reason: Headache/Fever/Mild Pain (1-3) Last Admin: 10/06/18 09:04 Dose: 650 mg Acetaminophen (Tylenol) 650 mg [place] Q4H PRN PRN Reason: Headache/Fever/Mild Pain (1-3) Acetaminophen (Tylenol) 650 mg PO Q4H PRN PRN Reason: Headache/Fever/Mild Pain (1-3) Last Admin: 10/05/18 15:33 Dose: 650 mg Aspirin (Ecotrin) 325 mg PO DAILY [facility] Last Admin: 10/06/18 09:03 Dose: 325 mg Carvedilol (Coreg) 12.5 mg PO BID [facility] Last Admin: 10/06/18 09:03 Dose: 12.5 mg Dextrose/Water (Dextrose 50%) 25 gm SLOW IVP PRN PRN PRN Reason: Hypoglycemia Epoetin Jose Alberto-epbx (Retacrit) 7,500 unit SC Q7D [facility] Last Admin: 10/03/18 20:53 Dose: 7,500 unit Glucagon (Glucagon) 1 mg IM PRN PRN PRN Reason: Hypoglycemia Hydralazine HCl (Apresoline) 100 mg PO TID [facility] Last Admin: 10/06/18 09:03 Dose: 100 mg Dextrose/Water (D5w) 1,000 mls @ 0 mls/hr IV .Q0M PRN PRN Reason: Hypoglycemia Levofloxacin 500 mg/ Device 100 mls @ 100 mls/hr IVPB Q2D [facility] Last Admin: 10/06/18 05:35 Dose: 100 mls Insulin Human Regular (Humulin R) 0 units SC .MILD SLIDING SCALE PRN PRN Reason: Mild Correctional Scale Isosorbide Mononitrate (Imdur Er) 30 mg PO HS [facility] Last Admin: 10/05/18 20:13 Dose: 30 mg Levothyroxine Sodium (Synthroid) 150 mcg PO 0600 [facility] Last Admin: 10/06/18 05:35 Dose: 150 mcg Melatonin (Melatonin) 3 mg PO HS PRN PRN Reason: Insomnia Last Admin: 10/05/18 20:13 Dose: 3 mg Metoclopramide HCl (Reglan) 10 mg PO HS [facility] Last Admin: 10/05/18 20:14 Dose: 10 mg Ondansetron HCl (Zofran Odt) 4 mg PO Q6H PRN PRN Reason: Nausea/Vomiting Ondansetron HCl (Zofran) 4 mg IVP Q6H PRN PRN Reason: Nausea/Vomiting Pantoprazole Sodium (Protonix) 40 mg PO DAILY [facility] Last Admin: 10/06/18 09:04 Dose: 40 mg Polyethylene Glycol (Miralax) 17 gm PO DAILY [facility] Last Admin: 10/06/18 09:17 Dose: 17 gm Simvastatin (Zocor) 10 mg PO HS [facility] Last Admin: 10/05/18 20:13 Dose: 10 mg Zolpidem Tartrate (Ambien) 5 mg PO HSPRN PRN PRN Reason: Insomnia Last Admin: 10/05/18 20:15 Dose: 5 mg
[2018-10-06] MEDS: Melatonin 3 MG TAB PO PRN (20:01)
[2018-10-06] MEDS: Simvastatin 5 MG TAB PO SCH (20:01)
[2018-10-06] MEDS: Metoclopramide HCl 10 MG TAB PO SCH (20:01)
[2018-10-06] MEDS: Zolpidem Tartrate 5 MG TAB PO PRN (20:02)
[2018-10-07 05:18] LABS: #Basophils 0.1 thou/uL (0.0-0.2); #Eosinphils 0.4 thou/uL (0.0-0.7); #Lymphocytes 1.6 thou/uL (1.20-3.40); #Monocytes 1.3 thou/uL (0.11-0.59); #Neutrophils 9.5 thou/uL (1.40-6.50); %Basophils 0.5 % (0.0-1.0); %Eosinophils 3.5 % (0.0-10.0); %Lymphocytes 12.3 % (21.0-51.0); %Monocytes 10.2 % (0.0-10.0); %Neutrophils 73.6 % (42.0-75.0); Hemoglobin 8.1 g/dL (14.0-18.0); Mean Corpuscular HGB CONC 31.2 g/dL (32.0-36.0); Mean Corpuscular Hemoglobin 31.6 pg (27.0-31.0); Mean Platelet Volume 9.4 fL (7.4-10.4); Platelet Count 358 thou/uL (130-400); RBC Distribution Width 13.9 % (11.5-14.5); Red Blood Cell (RBC) Count 2.56 mill/uL (4.70-6.10)
[2018-10-07] MEDS: Levothyroxine 150 MCG TAB PO SCH (05:29)
[2018-10-07] MEDS ORDERED: EPOETIN ALFA-EPBX (ESRD) 4,000 UNIT/ML VIAL SC SCH (09:20)
[2018-10-07] MEDS: hydrALAZINE 25 MG TAB PO SCH ×3 (09:33→21:10)
[2018-10-07] MEDS: Carvedilol 6.25 MG TAB PO SCH ×2 (09:33→21:11)
[2018-10-07] MEDS: Polyethylene Glycol 3350 17 GM Packet PO SCH (09:33)
[2018-10-07] MEDS: Aspirin 325 mg Enteric Coated Tablet PO SCH (09:34)
--- NOTE | 2018-10-07 10:06 | PRG ---
DATE OF SERVICE: 10/07/2018 SUBJECTIVE: Mr. Lau is a 63-year-old white male with ESRD and currently on maintenance peritoneal dialysis. No new complaints today. He is still feeling tired and weak. Please note, he was admitted for shortness of breath. He had his pleural effusion tapped. In addition, he was also noted to have NSTEMI. This was felt by Cardiology due to demand ischemia. No other complaints today. No chest pain or shortness of breath. OBJECTIVE: VITAL SIGNS: Blood pressure 141/63, heart rate 65, respiratory rate 16, temperature 98.1, and pulse ox 98%. GENERAL: Awake, alert, supine, comfortable, not in distress. SKIN: Adequate turgor. HEENT: He has a slightly pale conjunctivae. Anicteric sclerae. NECK: No neck mass. No carotid bruits. No JVD. CHEST: No deformities. LUNGS: Clear breath sounds. No wheezing. No crackles. HEART: Normal sinus rhythm. No murmurs, gallops, or rubs. ABDOMEN: Globular, soft, nontender. No masses. Positive for PD catheter in the abdomen. EXTREMITIES: No edema. No deformities. MEDICATIONS: Medications of October 07, 2018, were reviewed. LABORATORY DATA: Laboratories of October 07, 2018, white count 13, hemoglobin 8.1, and hematocrit 25.9. On October 06, 2018, sodium 139, potassium 4.1, chloride 98, carbon dioxide 28, BUN 62, creatinine 9.22, and calcium 8.2. ASSESSMENT AND PLAN: 1. End-stage renal disease, stable. We will continue current CCPD regimen, fluid removal only as tolerated by the patient. 2. Elevated troponin I - secondary to [id number] elevation myocardial infarction from increased cardiac demand. Status post cardiac cath. Stable. 3. Anemia. Adjust Epogen to 10,000 units subcu every week. 4. Type 2 diabetes mellitus, continuing insulin regimen. 5. Pleural effusion, stable, status post thoracentesis. Job ID: [id number]
[2018-10-07] MEDS ORDERED: EPOETIN ALFA-EPBX (ESRD) 10,000 UNIT/ML VIAL SC SCH (12:00)
[2018-10-07] MEDS: Acetaminophen 325 MG TAB PO PRN ×2 (12:58→17:52)
--- NOTE | 2018-10-07 13:24 | PDOC.CTH ---
Cardiology Progress Note - Subjective no new complaints. no overnight changes - Objective Vital Signs Temp Pulse Resp BP Pulse Ox 10/07/18 12:00 97.9 F 65 16 139/65 97 10/07/18 09:33 65 10/07/18 07:46 98.1 F 65 16 141/63 H 98 10/07/18 03:28 98.1 F 65 20 132/62 98 Weight 209 lb 6.4 oz 10/06/18 10/07/18 10/08/18 06:59 06:59 06:59 Intake Total 940 960 240 Output Total 325 250 Balance 615 710 240 - Physical Examination General/Neuro: alert & oriented x3 Neck: no JVD present Lungs: CTA Heart: RRR Abdomen: NT/ND - Labs Result Diagrams: 10/07/18 04:37 10/06/18 07:09 Troponin/CKMB CK-MB (CK-2) 3.9 ng/mL (0-6.6) 10/02/18 01:19 Troponin I 11.205 ng/mL (< 0.028) H* 10/02/18 07:47 - Assessment/Plan 1. NSTEMI, demand ischemia. 2. Acute on chronic systolic heart failure. EF 40-45% 3. ESRD 4. Left sided pleural effusion s/p thoracentesis. 5. Ascending aortic aneurysm s/p repair and bioprosthetic AVR. 6. S/P CABG x 4 7. Patent PATEL to LAD. Other 3 grafts not found, no competitive flow seen in [place] coronaries. 8. Hx of Pancreatic Ca in remission, no malignant cells on pleural fluid. Stable. Slow progress. Arrange SNF. No changes to meds.
--- NOTE | 2018-10-07 14:30 | PDOC.PN ---
- Subjective Encounter Start Date: 10/07/18 Encounter Start Time: 10:30 Subjective: pt up in bed no complains - Objective Resuscitation Status - Order Detail: 10/02/18 05:44 Resuscitation Status Routine Resuscitation Status: FULL: Full Resuscitation Vital Signs & Weight: Vital Signs (12 hours) Temp Pulse Resp BP Pulse Ox 10/07/18 12:00 97.9 F 65 16 139/65 97 10/07/18 09:33 65 10/07/18 07:46 98.1 F 65 16 141/63 H 98 10/07/18 03:28 98.1 F 65 20 132/62 98 Weight Weight 209 lb 6.4 oz Most Recent Monitor Data Heart Rate from ECG 60 NIBP 111/46 NIBP BP-Mean 67 Respiration from ECG 23 SpO2 100 I&O: 10/06/18 10/07/18 10/08/18 06:59 06:59 06:59 Intake Total 940 960 240 Output Total 325 250 Balance 615 710 240 Result Diagrams: 10/07/18 04:37 10/06/18 07:09 Additional Labs: Accuchecks 10/07/18 10/07/18 10/06/18 11:04 05:32 20:50 POC Glucose 125 H 119 H 136 H 10/06/18 16:55 POC Glucose 117 H Phys Exam - Physical Examination Neck: no nodes, no JVD, supple, full ROM Respiratory: no wheezing, no rales, no rhonchi, wheezing present, clear to auscultation bilateral Cardiovascular: RRR, no significant murmur, no rub, gallop, irregular Gastrointestinal: soft, non-tender, no distention, positive bowel sounds Dx/Plan (1) Acute respiratory failure with hypoxia Code(s): J96.01 - ACUTE RESPIRATORY FAILURE WITH HYPOXIA Status: Acute (2) Acute kidney injury Code(s): N17.9 - ACUTE KIDNEY FAILURE, UNSPECIFIED Status: Acute (3) Diabetes mellitus type 2 in obese Code(s): E11.9 - TYPE 2 DIABETES MELLITUS WITHOUT COMPLICATIONS; E66.9 - OBESITY , UNSPECIFIED Status: Acute (4) Hypothyroidism Code(s): E03.9 - HYPOTHYROIDISM, UNSPECIFIED Status: Acute (5) Pancreatic cancer Status: Acute Comment: pt has a hx of pancreatic cancer - Plan pt will need SNF -: will continue current meds -: lymphocytes in pleural effusion, cosme checked -: He will need ct chest as outpatient * . Review of Systems - Review of Systems Respiratory: negative: Cough, Dry, Shortness of Breath, Hemoptysis, SOB with Excertion, Pleuritic Pain, Sputum, Wheezing Cardiovascular: negative: chest pain, palpitations, orthopnea, paroxysmal nocturnal dyspnea, edema, light headedness, other Gastrointestinal: negative: Nausea, Vomiting, Abdominal Pain, Diarrhea, Constipation, Melena, Hematochezia, Other - Medications/Allergies Allergies/Adverse Reactions: Allergies Allergy/AdvReac Type Severity Reaction Status Date / Time No Known Allergies Allergy Verified 10/02/18 06:07 Medications: Current Medications Acetaminophen (Tylenol) 650 mg [place] Q4H PRN PRN Reason: Headache/Fever/Mild Pain (1-3) Acetaminophen (Tylenol) 650 mg PO Q4H PRN PRN Reason: Headache/Fever/Mild Pain (1-3) Last Admin: 10/07/18 12:58 Dose: 650 mg Aspirin (Ecotrin) 325 mg PO DAILY [facility] Last Admin: 10/07/18 09:34 Dose: 325 mg Carvedilol (Coreg) 12.5 mg PO BID [facility] Last Admin: 10/07/18 09:33 Dose: 12.5 mg Dextrose/Water (Dextrose 50%) 25 gm SLOW IVP PRN PRN PRN Reason: Hypoglycemia Epoetin Jose Albreto-epbx (Retacrit) 10,000 unit SC Q7D [facility] Last Admin: 10/07/18 12:59 Dose: 10,000 unit Glucagon (Glucagon) 1 mg IM PRN PRN PRN Reason: Hypoglycemia Hydralazine HCl (Apresoline) 100 mg PO TID [facility] Last Admin: 10/07/18 09:33 Dose: 100 mg Dextrose/Water (D5w) 1,000 mls @ 0 mls/hr IV .Q0M PRN PRN Reason: Hypoglycemia Levofloxacin 500 mg/ Device 100 mls @ 100 mls/hr IVPB Q2D [facility] Last Admin: 10/06/18 05:35 Dose: 100 mls Insulin Human Regular (Humulin R) 0 units SC .MILD SLIDING SCALE PRN PRN Reason: Mild Correctional Scale Isosorbide Mononitrate (Imdur Er) 30 mg PO HS [facility] Last Admin: 10/06/18 20:02 Dose: 30 mg Levothyroxine Sodium (Synthroid) 150 mcg PO 0600 [facility] Last Admin: 10/07/18 05:29 Dose: 150 mcg Melatonin (Melatonin) 3 mg PO HS PRN PRN Reason: Insomnia Last Admin: 10/06/18 20:01 Dose: 3 mg Metoclopramide HCl (Reglan) 10 mg PO HS [facility] Last Admin: 10/06/18 20:01 Dose: 10 mg Dianeal 6l Bag With 500 Units/L Of Heparin 0 each FS [facility] Ondansetron HCl (Zofran Odt) 4 mg PO Q6H PRN PRN Reason: Nausea/Vomiting Ondansetron HCl (Zofran) 4 mg IVP Q6H PRN PRN Reason: Nausea/Vomiting Pantoprazole Sodium (Protonix) 40 mg PO DAILY [facility] Last Admin: 10/07/18 09:34 Dose: 40 mg Polyethylene Glycol (Miralax) 17 gm PO DAILY [facility] Last Admin: 10/07/18 09:33 Dose: 17 gm Simvastatin (Zocor) 10 mg PO HS [facility] Last Admin: 10/06/18 20:01 Dose: 10 mg Zolpidem Tartrate (Ambien) 5 mg PO HSPRN PRN PRN Reason: Insomnia Last Admin: 10/06/18 20:02 Dose: 5 mg
--- NOTE | 2018-10-07 17:06 | RAD ---
EXAM: Portable chest: INDICATIONS: Shortness of breath COMPARISON: 10/05/2018 FINDINGS: Left basilar opacification consistent with atelectasis, infiltrate and effusion. Right lung remains clear. Mild cardiomegaly is stable. IMPRESSION: Left basilar opacification appears stable.
[2018-10-07] MEDS: Metoclopramide HCl 10 MG TAB PO SCH (21:10)
[2018-10-07] MEDS: Simvastatin 5 MG TAB PO SCH (21:10)
[2018-10-07] MEDS: Melatonin 3 MG TAB PO PRN (21:13)
[2018-10-07] MEDS: Zolpidem Tartrate 5 MG TAB PO PRN (21:13)
[2018-10-08] MEDS: Levothyroxine 150 MCG TAB PO SCH (05:24)
--- NOTE | 2018-10-08 08:09 | PDOC.PN ---
- Subjective Encounter Start Date: 10/08/18 Encounter Start Time: 11:20 Subjective: Patient with tightness and wheezing last night, resolved with neb. Some -: more tightness this AM so waiting on another neb. No cough. Weak with -: movement. No one else at home to help him move around. Not on home O2, no nebulizer at home - Objective Resuscitation Status - Order Detail: 10/02/18 05:44 Resuscitation Status Routine Resuscitation Status: FULL: Full Resuscitation MAR Reviewed: Yes Vital Signs & Weight: Vital Signs (12 hours) Temp Pulse Resp BP BP Pulse Ox 10/08/18 07:37 97.6 F 59 L 18 153/70 H 98 10/08/18 03:15 98.2 F 57 L 18 146/67 H 94 L 10/07/18 22:22 54 L 16 95 10/07/18 21:11 140/64 10/07/18 21:10 59 L 140/64 Weight Weight 210 lb 11.2 oz Most Recent Monitor Data Heart Rate from ECG 60 NIBP 111/46 NIBP BP-Mean 67 Respiration from ECG 23 SpO2 100 I&O: 10/07/18 10/08/18 10/09/18 06:59 06:59 06:59 Intake Total 960 1710 240 Output Total 250 0 Balance 710 1710 240 Result Diagrams: 10/07/18 04:37 10/06/18 07:09 Additional Labs: Accuchecks 10/08/18 10/07/18 10/07/18 05:51 20:32 16:37 POC Glucose 128 H 138 H 121 H 10/07/18 11:04 POC Glucose 125 H Phys Exam - Physical Examination Constitutional: NAD HEENT: moist MMs Respiratory: no rales, no rhonchi occ wheeze, decent air movement throughout Cardiovascular: RRR, no significant murmur Gastrointestinal: soft, positive bowel sounds Musculoskeletal: no edema Neurological: non-focal, moves all 4 limbs Psychiatric: normal affect, A&O x 3 Dx/Plan (1) Acute respiratory failure with hypoxia Code(s): J96.01 - ACUTE RESPIRATORY FAILURE WITH HYPOXIA Status: Acute (2) Pleural effusion Code(s): J90 - PLEURAL EFFUSION, NOT ELSEWHERE CLASSIFIED Status: Acute Comment: s/p thoracentesis, weak lymphocytic exudate without malignant cells (3) End stage renal disease Code(s): N18.6 - END STAGE RENAL DISEASE Status: Chronic Comment: on peritoneal dialysis (4) NSTEMI (non-ST elevated myocardial infarction) Code(s): I21.4 - NON-ST ELEVATION (NSTEMI) MYOCARDIAL INFARCTION Status: Acute (5) CAD (coronary artery disease) Code(s): I25.10 - ATHSCL HEART DISEASE OF [place] CORONARY ARTERY W/O ANG PCTRS Status: Chronic Comment: cath with severe multivessel disease, patent PATEL to diffusely diseased LAD, no other vein grafts (6) History of pancreatic cancer Code(s): Z85.07 - PERSONAL HISTORY OF MALIGNANT NEOPLASM OF PANCREAS Status: Chronic Comment: in remission (7) Diabetes mellitus type 2 in obese Code(s): E11.9 - TYPE 2 DIABETES MELLITUS WITHOUT COMPLICATIONS; E66.9 - OBESITY , UNSPECIFIED Status: Chronic (8) Heart failure Code(s): I50.9 - HEART FAILURE, UNSPECIFIED Status: Chronic Qualifiers: Heart failure type: combined systolic and diastolic Comment: EF 40-45%, 2/3 diastolic dysfunction, bioprosthetic valve (9) Hypertension Code(s): I10 - ESSENTIAL (PRIMARY) HYPERTENSION Status: Chronic - Plan cont current plan of care, continue antibiotics, PT/OT will need rehab or SNF but payment is an issue -: will need nebs and possible O2 when goes home -: case management consult to look for resources/placement options * . - Discharge Encounter end time: 11:30
[2018-10-08] MEDS: Carvedilol 6.25 MG TAB PO SCH ×2 (08:22→20:04)
[2018-10-08] MEDS: Aspirin 325 mg Enteric Coated Tablet PO SCH (08:22)
[2018-10-08] MEDS: hydrALAZINE 25 MG TAB PO SCH ×3 (08:22→20:03)
[2018-10-08] MEDS: Polyethylene Glycol 3350 17 GM Packet PO SCH (08:23)
--- NOTE | 2018-10-08 09:52 | PRG ---
DATE OF SERVICE: 10/08/2018 SUBJECTIVE: Mr. Lau is a 63-year-old white male with ESRD, initially admitted for shortness of breath. He had a significant left large pleural effusion and thoracentesis was done. In addition, he developed elevated troponin-I secondary to demand ischemia. He underwent a cardiac cath. No new complaints this morning. He is tolerating his current peritoneal dialysis. OBJECTIVE: VITAL SIGNS: Blood pressure is 153/70, heart rate 59, respiratory rate 18, temperature 97.6, and pulse ox 98%. GENERAL: Noted to be awake, alert, supine, comfortable, not in distress. SKIN: Adequate turgor. HEENT: He has slightly pale conjunctivae. Anicteric sclerae. NECK: No neck mass. No carotid bruits. No JVD. CHEST: No deformities. LUNGS: Decreased breath sounds. HEART: Normal sinus rhythm. No murmurs. No gallops. No rubs. ABDOMEN: Globular, soft, and nontender. No masses. Positive for PD catheter. EXTREMITIES: No edema. MEDICATIONS: Medications of October 08, 2018, reviewed. LABORATORY DATA: Laboratories of October 07, 2018: White count 13, hemoglobin 8.1. On October 08, 2018: Glucose 128. On October 06, 2018: Potassium 4.1, BUN 62, creatinine 9.22, and sodium 131. ASSESSMENT AND PLAN: 1. End-stage renal disease, stable. We will continue current CCPD regimen, tolerating ultrafiltration. No changes to be made. 2. Chronic anemia. Epogen was recently increased from 7500 to 10,000 units subcu every week. Recheck CBC in a.m. 3. Shortness of breath, clinically improved, status post thoracentesis. 4. Elevated troponin-I - secondary to demand ischemia. Status post cardiac cath. Cardiology is following. 5. Recheck CBC in a.m. Job ID: [id number]
--- NOTE | 2018-10-08 10:08 | PRG ---
DATE OF SERVICE: 10/08/2018 SERVICE: Pulmonary Medicine. INTERVAL HISTORY: The patient is doing really well from a breathing standpoint. Last night, however, he had wheezing fit. He ended up getting a chest x-ray and nebulized medication. The nebulizer actually helped to a significant degree. There are no other overnight events. Otherwise, this morning, he is perfectly comfortable and has no specific complaints. He is working with physical therapy, but continues to have persistent weakness. PHYSICAL EXAMINATION: VITAL SIGNS: Afebrile, pulse 59, blood pressure 153/70, respirations 18, and saturation 98% on 2 L nasal cannula. GENERAL: The patient is awake and alert, in no apparent distress. LUNGS: Decent air entry. There is no prolonged expiratory phase. Dependent wheezing is not present. No crackles or rhonchi appreciated. HEART: Normal rate and regular. ABDOMEN: Soft, nontender, and nondistended. Bowel sounds are positive. MUSCULOSKELETAL: No cyanosis or clubbing. There is trace pitting in the bilateral lower extremities. NEUROLOGIC: Grossly nonfocal. LABORATORY DATA: All microbiology studies are negative to date. IMAGING STUDIES: Chest x-ray shows left basilar opacification is stable. ASSESSMENT: 1. Hypoxic respiratory failure, resolving. 2. Pleural effusion, weak lymphocytic exudate, cytology negative. 3. End-stage renal disease, on peritoneal dialysis. 4. Mkk-SF-mbyavtfql myocardial infarction. 5. History of pancreatic cancer. DISCUSSION AND PLAN: We will continue to wean away oxygen as tolerated. Continue mobilization efforts. The patient will require repeat chest x-ray in 4 to 6 weeks in the outpatient setting. If the left lower lobe infiltrate/effusion persists, a CT of the chest will be indicated. He is currently stable for transition out of the hospital. We can provide him with p.r.n. nebulized medications in the outpatient setting. Job ID: [id number]
[2018-10-08] MEDS ORDERED: DIANEAL FS SCH (11:15)
[2018-10-08] MEDS ORDERED: HEPARIN FS SCH (11:15)
[2018-10-08 11:48] VITALS: BMI 27.0
[2018-10-08 12:00] LABS: ANA Symphony (Qualitative) Negative (Negative); ANA Symphony (Quantitative) 0.6 Ratio (< 0.7 Negative); CCP IgG Antibody 1.4 EliAU/mL (<7 Negative); EliA RAS New Method **** NEW METHOD ****; Rheumatoid Factor IgM Antibody Less than 0.5 IU/mL (<3.5 Negative)
[2018-10-08] MEDS: Acetaminophen 325 MG TAB PO PRN (18:42)
[2018-10-08] MEDS: Zolpidem Tartrate 5 MG TAB PO PRN (20:03)
[2018-10-08] MEDS: Melatonin 3 MG TAB PO PRN (20:04)
[2018-10-08] MEDS: Metoclopramide HCl 10 MG TAB PO SCH (20:04)
[2018-10-08] MEDS: Simvastatin 5 MG TAB PO SCH (20:04)
[2018-10-08] MEDS: traZODone HCl 50 MG TAB PO PRN (23:46)
[2018-10-09 05:09] LABS: #Eosinphils 0.3 thou/uL (0.0-0.7); #Lymphocytes 1.4 thou/uL (1.20-3.40); #Monocytes 1.4 thou/uL (0.11-0.59); #Neutrophils 9.2 thou/uL (1.40-6.50); %Basophils 0.4 % (0.0-1.0); %Eosinophils 2.7 % (0.0-10.0); %Lymphocytes 11.1 % (21.0-51.0); %Monocytes 10.9 % (0.0-10.0); %Neutrophils 74.9 % (42.0-75.0); Hemoglobin 7.7 g/dL (14.0-18.0); Mean Corpuscular HGB CONC 30.6 g/dL (32.0-36.0); Mean Corpuscular Hemoglobin 31.4 pg (27.0-31.0); Mean Platelet Volume 9.1 fL (7.4-10.4); Platelet Count 373 thou/uL (130-400); RBC Distribution Width 14.2 % (11.5-14.5); Red Blood Cell (RBC) Count 2.45 mill/uL (4.70-6.10); White Blood Cell (WBC) Count 12.3 thou/uL (4.8-10.8)
[2018-10-09 05:27] LABS: Anion Gap 19 mmol/L (10-20); BUN (Urea Nitrogen) 62 mg/dL (8.4-25.7); Calc. Creatinine Clearance 11 mL/min (70-130); Calcium 8.1 mg/dL (7.8-10.44); Carbon Dioxide 25 mmol/L (23-31); Chloride 96 mmol/L (98-107); Estimated GFR-MDRD 6; Glucose 114 mg/dL (80-115); Sodium 136 mmol/L (136-145)
[2018-10-09] MEDS: Levothyroxine 150 MCG TAB PO SCH (05:57)
[2018-10-09] MEDS: Carvedilol 6.25 MG TAB PO SCH ×2 (08:13→20:14)
[2018-10-09] MEDS: hydrALAZINE 25 MG TAB PO SCH ×3 (08:13→20:14)
[2018-10-09] MEDS: Aspirin 325 mg Enteric Coated Tablet PO SCH (08:13)
[2018-10-09] MEDS: Polyethylene Glycol 3350 17 GM Packet PO SCH (08:14)
[2018-10-09] MEDS ORDERED: predniSONE 20 MG TAB PO SCH (08:45)
--- NOTE | 2018-10-09 09:37 | PRG ---
DATE OF SERVICE: 10/09/2018 SUBJECTIVE: Mr. Lau is a 63-year-old white male with ESRD and followed up by the Renal Service for his maintenance peritoneal dialysis. He is tolerating the said peritoneal dialysis regimen. Heparin was incorporated due to some fibrin in the PD fluid. His shortness of breath is much improved. Please note, he is status post thoracentesis as well as a cardiac cath. The patient developed some chest pain with elevated troponin I. Cardiac cath was done. Recommendation is medical management. He had a demand ischemia to explain the elevated troponin I. This morning, he has no new complaints. No chest pain or shortness of breath. OBJECTIVE: VITAL SIGNS: Blood pressure 120/59, heart rate 64, respiratory rate 20, temperature 97.9, and pulse ox 94%. GENERAL: He is noted to be awake, alert, supine, comfortable, not in distress. SKIN: Adequate turgor. HEENT: He has slightly pale conjunctivae. Anicteric sclerae. NECK: No neck mass. No carotid bruits. No JVD. CHEST: No deformities. LUNGS: Decreased breath sounds. HEART: Normal sinus rhythm. No murmur. No gallops. No rubs. ABDOMEN: Globular, soft, and nontender. No masses. EXTREMITIES: No edema. No deformities. MEDICATIONS: Medications of October 09, 2018, were reviewed. LABORATORY DATA: Laboratories of October 09, 2018; white count 12.3, hemoglobin 7.7. Sodium 136, potassium 4, chloride 96, carbon dioxide 25, BUN 62, creatinine 8.91, glucose 114, and calcium 8.1. ASSESSMENT AND PLAN: 1. End-stage renal disease, stable. We will continue current CCPD regimen, tolerating ultrafiltration. No changes will be made with the PD regimen. 2. Anemia. Continue weekly Epogen. Recently, Epogen has been increased to 10,000 units subcu q.week. 3. Shortness of breath, clinically much improved. 4. Elevated troponin I - secondary to demand ischemia. 5. Overall agree with current management. Job ID: [id number]
[2018-10-09] MEDS: Acetaminophen 325 MG TAB PO PRN (10:25)
--- NOTE | 2018-10-09 11:33 | PRG ---
DATE OF SERVICE: 10/09/2018 SERVICE: Pulmonary Medicine. INTERVAL HISTORY: The patient indicates he is breathing comfortably. He had had any additional respiratory events. He denies any fevers, chills, nausea, or vomiting. He remains extraordinarily weak. He is yet to get out of bed today. PHYSICAL EXAMINATION: VITAL SIGNS: Afebrile, pulse 67, blood pressure 125/60, respirations 18, and saturation 100% on room air. GENERAL: The patient is awake and alert, in no apparent distress. LUNGS: Excellent air entry. There is no prolonged expiratory phase. Crackles are minimal. HEART: Normal rate and regular. ABDOMEN: Soft, nontender, and nondistended. Bowel sounds are positive. MUSCULOSKELETAL: No cyanosis or clubbing. No pitting in the bilateral lower extremities. NEUROLOGIC: Nonfocal. LABORATORY DATA: WBC 12.3, hemoglobin 7.7, platelets 373,000 and roughly stable. Creatinine 8.91. Basic metabolic profile is otherwise unremarkable. Pleural fluid; LDH 187, amylase less than 30. There is a lymphocyte predominance fluid. Total protein 3.0. The STEFFANIE screen is positive with an zvrr-yqhpdn-gqdruenw DNA IgG antibody being strongly positive. Body fluid culture is negative to date. ASSESSMENT: 1. Acute hypoxic respiratory failure, resolved. 2. Pleural effusion, weak lymphocytic exudate, cytology not negative. 3. Abnormal STEFFANIE. 4. End-stage renal disease, on peritoneal dialysis. 5. Jqd-CI-fjzblakgo myocardial infarction. 6. History of pancreatic cancer. DISCUSSION AND PLAN: I will initiate a brief course of steroids. This will be a 14-day course. He will need to follow up with Rheumatology in the outpatient setting to help us understand the meaning of his abnormal STEFFANIE. He certainly has serositis. As such, lupus is within our differential. He will need a chest x-ray in 4 weeks in the outpatient setting. If the pleural effusion returns, he may need additional investigation. Pulmonary consultation in the outpatient setting would be warranted at that time. At this point, he has no further inpatient requirements for Pulmonary/Critical Care opinion, and I will sign off. Please call with additional questions or concerns through time. Job ID: [id number] MTDD
--- NOTE | 2018-10-09 15:10 | PDOC.PN ---
- Subjective Encounter Start Date: 10/09/18 Encounter Start Time: 15:00 Subjective: f/u for ESRD, NSTEMI, resp failure and severe deconditioning. -: States fatigued but did sit up in chair with PT today. - Objective Resuscitation Status - Order Detail: 10/02/18 05:44 Resuscitation Status Routine Resuscitation Status: FULL: Full Resuscitation MAR Reviewed: Yes Vital Signs & Weight: Vital Signs (12 hours) Temp Pulse Pulse Pulse Resp BP BP 10/09/18 11:59 97.4 F L 65 18 10/09/18 10:51 65 64 109/53 L 10/09/18 08:13 67 125/60 10/09/18 08:00 98.2 F 67 18 10/09/18 04:00 97.9 F 64 20 BP BP BP Pulse Ox 10/09/18 11:59 109/53 L 95 10/09/18 10:51 117/58 L 10/09/18 08:13 10/09/18 08:00 125/60 100 10/09/18 04:00 120/59 L 94 L Weight Admit Weight 210 lb 3 oz Weight 210 lb 11.2 oz Most Recent Monitor Data Heart Rate from ECG 60 NIBP 111/46 NIBP BP-Mean 67 Respiration from ECG 23 SpO2 100 I&O: 10/08/18 10/09/18 10/10/18 06:59 06:59 06:59 Intake Total 1710 1120 340 Output Total 0 680 Balance 1710 440 340 Result Diagrams: 10/09/18 04:24 10/09/18 04:24 Additional Labs: Accuchecks 10/09/18 10/09/18 10/08/18 10:32 05:41 20:13 POC Glucose 144 H 131 H 146 H 10/08/18 10/08/18 16:55 11:10 POC Glucose 128 H 144 H Laboratory Tests 07/30/18 10/02/18 10/02/18 21:32 01:14 01:19 WBC 15.1 H Hgb 9.2 L Troponin I 10.594 H* B-Natriuretic Peptide 44235.8 H 10/02/18 10/02/18 10/02/18 01:19 04:37 07:47 WBC Hgb Troponin I 10.336 H* 11.205 H* B-Natriuretic Peptide 21937.0 H 10/03/18 10/06/18 10/07/18 04:33 07:09 04:37 WBC 14.0 H 12.7 H 13.0 H Hgb 8.5 L 7.9 L 8.1 L Troponin I B-Natriuretic Peptide Radiology Reviewed by me: Yes (PCXR - L basilar opacity) EKG Reviewed by me: Yes (Tele - SR) Phys Exam - Physical Examination ill-appearing, alert, pale HEENT: PERRLA, sclera anicteric, oral pharynx no lesions Neck: no nodes, no JVD, supple, full ROM diminished in L base Respiratory: no wheezing, no rhonchi S1, S2 Cardiovascular: RRR, no significant murmur, no rub, gallop Gastrointestinal: soft, non-tender, no distention, positive bowel sounds Musculoskeletal: no edema, pulses present Neurological: normal sensation, moves all 4 limbs Psychiatric: A&O x 3 Skin: normal turgor, cap refill <2 seconds Dx/Plan (1) NSTEMI (non-ST elevated myocardial infarction) Code(s): I21.4 - NON-ST ELEVATION (NSTEMI) MYOCARDIAL INFARCTION Status: Acute Comment: Continue ASA, Coreg and Zocor (2) Pancreatic cancer Status: Chronic Comment: pt has a hx of pancreatic cancer (3) Acute respiratory failure with hypoxia Code(s): J96.01 - ACUTE RESPIRATORY FAILURE WITH HYPOXIA Status: Acute Comment: Resolved, O2 prn, general supportive mgmt (4) Pleural effusion Code(s): J90 - PLEURAL EFFUSION, NOT ELSEWHERE CLASSIFIED Status: Acute Comment: s/p thoracentesis, weak lymphocytic exudate without malignant cells (5) Diabetes mellitus type 2 in obese Code(s): E11.9 - TYPE 2 DIABETES MELLITUS WITHOUT COMPLICATIONS; E66.9 - OBESITY , UNSPECIFIED Status: Chronic (6) End stage renal disease Code(s): N18.6 - END STAGE RENAL DISEASE Status: Chronic Comment: PD per Renal service - Plan continue antibiotics, PT/OT, pediatric social worker, out of bed/ambulate, DVT proph w/ SCDs Stable currently -: OOB/PT for mobilization -: Continue ASA, Coreg, Zocor -: PD per Renal service -: CM coordinating for Rehab * Continue Prednisone
--- NOTE | 2018-10-09 15:23 | PQF ---
CLINICAL DOCUMENTATION IMPROVEMENT CLARIFICATION FORM: ICD-10 Updated PLEASE DO AN ADDENDUM TO THE PROGRESS NOTE WITH ANY DOCUMENTATION UPDATES OR ADDITIONS AND CARRY THROUGH TO DC SUMMARY. THANK YOU. DATE: 10/09/2018 ATTN: Dr. Barreto Please exercise your independent, professional judgment in responding to the clarification form. Clinical indicators are provided on the bottom of this form for your review Please check appropriate box(s): AMI TYPE: [ ] NSTEMI (OR type I) [ x ] NSTEMI due to Demand Ischemia (AMI Type II) [ ] Other diagnosis [ ] Unable to determine In addition, please specify: Present on Admission (POA): [ x ] Yes [ ] No [ ] Unable to determine CLINICAL INDICATORS - SIGNS / SYMPTOMS / LABS 10/02(Shiela) EKG was unremarkable. Initialy troponin was at 10 Type 2 World Health Organization type of myocardial infarction demand ischemia. 10/07 (SARA Arnold) NSTEMI, demand ischemia. Acute on chronic systolic heart failure. EF 40-45% PN 10/08 (Duncan): NSTEMI. Acute. RISKS: H&P:Hx of ESRD, diabetes, HTN. Hx of CABG. Pt has left sided pleural effusion TREATMENT: Cardiology Consult 10/02 (Tim) Left-sided pleural drainage with catheter insertion under ultrasound guidance. 10/04 [facility] Thank you, Marta (This form is maintained as a part of the permanent medical record) 2014 [employer]. All Rights Reserved Marta Barragan RN, BSN [email or web address] Office: [phone] [facility]
[2018-10-09] MEDS: Melatonin 3 MG TAB PO PRN (20:13)
[2018-10-09] MEDS: Zolpidem Tartrate 5 MG TAB PO PRN (20:13)
[2018-10-09] MEDS: Simvastatin 5 MG TAB PO SCH (20:13)
[2018-10-09] MEDS: Metoclopramide HCl 10 MG TAB PO SCH (20:14)
[2018-10-09] MEDS: traZODone HCl 50 MG TAB PO PRN (20:59)
[2018-10-10] MEDS: Levothyroxine 150 MCG TAB PO SCH (05:41)
[2018-10-10] MEDS: predniSONE 20 MG TAB PO SCH (08:43)
[2018-10-10] MEDS: Carvedilol 6.25 MG TAB PO SCH ×2 (08:43→20:26)
[2018-10-10] MEDS: Aspirin 325 mg Enteric Coated Tablet PO SCH (08:43)
[2018-10-10] MEDS: hydrALAZINE 25 MG TAB PO SCH ×3 (08:44→20:26)
[2018-10-10] MEDS: Polyethylene Glycol 3350 17 GM Packet PO SCH ×2 (08:44→12:09)
--- NOTE | 2018-10-10 09:58 | PRG ---
DATE OF SERVICE: 10/10/2018 SUBJECTIVE: Mr. Lau is a 63-year-old white male with ESRD and followed up by the Renal Service for his peritoneal dialysis. He tolerated the said peritoneal dialysis without any problem. He was initially admitted for shortness of breath, he is status post thoracentesis and status post cardiac cath. No other complaints today. He does feel tired. OBJECTIVE: VITAL SIGNS: Blood pressure is 113/54, heart rate 66, respiratory rate 18, temperature 97.7, and pulse ox 95%. GENERAL: Awake, alert, supine, comfortable, not in overt distress. SKIN: Adequate turgor. HEENT: He has slightly pale conjunctivae. Anicteric sclerae. No neck mass. No carotid bruits. No JVD. CHEST: No deformities. LUNGS: Clear breath sounds. HEART: Normal sinus rhythm. No murmur. No gallops. No rubs. ABDOMEN: Globular, soft, nontender. No masses. EXTREMITIES: No edema. No deformities. He has a positive PD catheter. MEDICATIONS: Medications of October 10, 2018, reviewed. LABORATORY DATA: On October 09, 2018, hemoglobin 7.7, hematocrit 25.2, potassium 4, BUN 62, and creatinine 8.91. On October 10, 2018, glucose 176. ASSESSMENT AND PLAN: 1. End-stage renal disease, stable. Continue current PD regimen. No changes to be made. Tolerating said procedure. My plan is to change the PD solution tonight to 1.5% PD solution alternating with 2.5% PD solution to enhance ultrafiltration. 2. Shortness of breath, improved, status post thoracentesis. 3. Anemia-recheck CBC tomorrow. We did increase the Epogen to 10,000 units subcu q.week recently. Recheck also basement. Job ID: [id number]
[2018-10-10] MEDS: Insulin Regular 300 UNITS/3 ML VIAL SC PRN ×3 (12:10→20:31)
--- NOTE | 2018-10-10 12:31 | PDOC.PN ---
- Subjective Encounter Start Date: 10/10/18 Encounter Start Time: 12:30 Subjective: f/u for NSTEMI, ESRD, resp failure and deconditioning. Feels weak -: but some improvement today. - Objective Resuscitation Status - Order Detail: 10/02/18 05:44 Resuscitation Status Routine Resuscitation Status: FULL: Full Resuscitation MAR Reviewed: Yes Vital Signs & Weight: Vital Signs (12 hours) Temp Pulse Resp BP Pulse Ox 10/10/18 12:01 97.7 F 60 18 122/59 L 95 10/10/18 08:40 97.7 F 66 18 113/54 L 95 10/10/18 04:00 97.5 F L 68 20 152/71 H 94 L Weight Admit Weight 210 lb 3 oz Weight 210 lb 11.2 oz Most Recent Monitor Data Heart Rate from ECG 60 NIBP 111/46 NIBP BP-Mean 67 Respiration from ECG 23 SpO2 100 I&O: 10/09/18 10/10/18 10/11/18 06:59 06:59 06:59 Intake Total 1120 1090 Output Total 680 900 Balance 440 190 Result Diagrams: 10/09/18 04:24 10/09/18 04:24 Additional Labs: Accuchecks 10/10/18 10/10/18 10/09/18 10:53 05:28 20:12 POC Glucose 152 H 176 H 244 H 10/09/18 17:00 POC Glucose 199 H Laboratory Tests 07/30/18 10/02/18 10/02/18 21:32 01:14 01:19 WBC 15.1 H Hgb 9.2 L Troponin I 10.594 H* B-Natriuretic Peptide 26559.8 H 10/02/18 10/02/18 10/02/18 01:19 04:37 07:47 WBC Hgb Troponin I 10.336 H* 11.205 H* B-Natriuretic Peptide 12724.0 H 10/03/18 10/06/18 10/07/18 04:33 07:09 04:37 WBC 14.0 H 12.7 H 13.0 H Hgb 8.5 L 7.9 L 8.1 L Troponin I B-Natriuretic Peptide EKG Reviewed by me: Yes (Tele - SR) Phys Exam - Physical Examination Constitutional: NAD HEENT: PERRLA, sclera anicteric, oral pharynx no lesions Neck: no nodes, no JVD, supple, full ROM diminished in bases Respiratory: no wheezing, no rales, no rhonchi Cardiovascular: RRR, no significant murmur, no rub, gallop Gastrointestinal: soft, non-tender, no distention, positive bowel sounds Musculoskeletal: no edema, pulses present Neurological: normal sensation, moves all 4 limbs Psychiatric: A&O x 3 Skin: normal turgor, cap refill <2 seconds Dx/Plan (1) NSTEMI (non-ST elevated myocardial infarction) Code(s): I21.4 - NON-ST ELEVATION (NSTEMI) MYOCARDIAL INFARCTION Status: Acute Comment: Continue ASA, Coreg and Zocor, NSTEM Type II with medical mgmt (2) Pancreatic cancer Status: Chronic Comment: pt has a hx of pancreatic cancer (3) Acute respiratory failure with hypoxia Code(s): J96.01 - ACUTE RESPIRATORY FAILURE WITH HYPOXIA Status: Acute Comment: Resolved, O2 prn, general supportive mgmt (4) Pleural effusion Code(s): J90 - PLEURAL EFFUSION, NOT ELSEWHERE CLASSIFIED Status: Acute Comment: s/p thoracentesis, weak lymphocytic exudate without malignant cells (5) Diabetes mellitus type 2 in obese Code(s): E11.9 - TYPE 2 DIABETES MELLITUS WITHOUT COMPLICATIONS; E66.9 - OBESITY , UNSPECIFIED Status: Chronic (6) End stage renal disease Code(s): N18.6 - END STAGE RENAL DISEASE Status: Chronic Comment: PD per Renal service - Plan plan discussed w/ family, PT/OT, social studies department chair, out of bed/ambulate, DVT proph w/SCDs Stable overall -: OOB with PT for mobilization -: Rehab approved awaiting bed opening -: Continue Prednisone, Levaquin, Duonebs -: PD per Renal service * AM lab: BMP, CBC * Transfer to rehab 10/11/18
[2018-10-10] MEDS ORDERED: Magnesium Citrate 300 ML BOT PO SCH (16:30)
[2018-10-10] MEDS ORDERED: traMADol HCl 50 MG TAB PO SCH (18:15)
[2018-10-10] MEDS: Melatonin 3 MG TAB PO PRN (20:27)
[2018-10-10] MEDS: Metoclopramide HCl 10 MG TAB PO SCH (20:27)
[2018-10-10] MEDS: Simvastatin 5 MG TAB PO SCH (20:27)
[2018-10-10] MEDS: Acetaminophen 325 MG TAB PO PRN (20:27)
[2018-10-10] MEDS: Zolpidem Tartrate 5 MG TAB PO PRN (20:27)
[2018-10-10] MEDS: traZODone HCl 50 MG TAB PO PRN (20:27)
[2018-10-10] MEDS ORDERED: traMADol HCl 50 MG TAB ONE (23:49)
[2018-10-11] MEDS ORDERED: traMADol HCl 50 MG TAB ONE (06:11)
[2018-10-11] MEDS ORDERED: Levothyroxine 150 MCG TAB ONE (06:11)
[2018-10-11] MEDS: predniSONE 20 MG TAB PO SCH (09:12)
[2018-10-11] MEDS: Aspirin 325 mg Enteric Coated Tablet PO SCH (09:12)
[2018-10-11] MEDS: hydrALAZINE 25 MG TAB PO SCH ×2 (09:12→15:04)
[2018-10-11] MEDS: Polyethylene Glycol 3350 17 GM Packet PO SCH (09:13)
--- NOTE | 2018-10-11 09:15 | PRG ---
DATE OF SERVICE: 10/11/2018 SUBJECTIVE: Mr. Lau is a 63-year-old white male with ESRD, who was initially admitted for shortness of breath. He was found to have a large pleural effusion which he underwent thoracentesis. He also had an elevated troponin I where he underwent a cardiac cath. Medical management was recommended by Cardiology. No new complaints today. He is still feeling tired. No chest pain or shortness of breath. OBJECTIVE: VITAL SIGNS: Blood pressure 136/65, heart rate 71, respiratory rate is 16, pulse ox 95%. GENERAL: Awake, alert, comfortable, not in distress. SKIN: Adequate turgor. HEENT: He has pinkish slightly pale conjunctivae. Anicteric sclerae. NECK: No neck mass. No carotid bruits. No JVD. CHEST: No deformities. LUNGS: Clear breath sounds. HEART: Normal sinus rhythm. No murmur. No gallops or rubs. ABDOMEN: Globular, soft, and nontender. No masses. EXTREMITIES: No edema. No deformities. He does have a PD catheter. MEDICATIONS: Medications of October 11, 2018, were reviewed. LABORATORY DATA: Laboratories of October 11, 2018, showed a glucose of 176. On October 09, 2018, potassium 4, BUN 62, creatinine 8.91. On October 09, 2018, hemoglobin 7.7. ASSESSMENT AND PLAN: 1. End-stage renal disease, stable. We will continue current continuous cycling peritoneal dialysis regimen. Fluid removal only as tolerated. Heparin incorporated in peritoneal dialysis fluid due to the finding of some fibrin. 2. Anemia, continuing weekly Epogen. P.r.n. blood transfusion for hemoglobin of less than 7. 3. Coronary artery disease, asymptomatic. Continue supportive care. 4. Agree with current management. Job ID: [id number]
[2018-10-11] MEDS: Carvedilol 6.25 MG TAB PO SCH (09:20)
[2018-10-11] MEDS: Levothyroxine 150 MCG TAB PO SCH (09:32)
[2018-10-11] MEDS: Insulin Regular 300 UNITS/3 ML VIAL SC PRN (11:33)
[2018-10-11] MEDS: traMADol HCl 50 MG TAB PO PRN ×2 (12:32→18:43)
--- NOTE | 2018-10-11 14:44 | PDOC.PN ---
- Subjective Encounter Start Date: 10/11/18 Encounter Start Time: 14:42 Mr. Lau was seen today in follow-up of respiratory failure. He says he is breathing a bit better. He is extremely weak. He also says he is feeling depressed and would like an antidepressant. - Objective Resuscitation Status - Order Detail: 10/02/18 05:44 Resuscitation Status Routine Resuscitation Status: FULL: Full Resuscitation MAR Reviewed: Yes Vital Signs & Weight: Vital Signs (12 hours) Temp Pulse Resp BP Pulse Ox 10/11/18 11:10 97.9 F 55 L 16 119/59 L 94 L 10/11/18 10:19 95 10/11/18 07:38 97.8 F 56 L 16 121/57 L 95 Weight Admit Weight 210 lb 3 oz Weight 210 lb 7 oz Most Recent Monitor Data Heart Rate from ECG 60 NIBP 111/46 NIBP BP-Mean 67 Respiration from ECG 23 SpO2 100 I&O: 10/10/18 10/11/18 10/12/18 06:59 06:59 06:59 Intake Total 1090 480 Output Total 900 317 Balance 190 163 Result Diagrams: 10/09/18 04:24 10/09/18 04:24 Additional Labs: Accuchecks 10/11/18 10/11/18 10/10/18 11:28 05:13 20:02 POC Glucose 180 H 182 H 182 H 10/10/18 16:30 POC Glucose 227 H Phys Exam - Physical Examination HEENT: PERRLA + bilatera bruits Respiratory: no wheezing, no rales, no rhonchi, clear to auscultation bilateral Cardiovascular: RRR 3/6 systolic Gastrointestinal: soft, non-tender, no distention, positive bowel sounds Musculoskeletal: pulses present, edema present + non-pitting edema Deviation from normal: + flat affect Dx/Plan (1) Pleural effusion Code(s): J90 - PLEURAL EFFUSION, NOT ELSEWHERE CLASSIFIED Status: Acute Comment: s/p thoracentesis, weak lymphocytic exudate without malignant cells (2) NSTEMI (non-ST elevated myocardial infarction) Code(s): I21.4 - NON-ST ELEVATION (NSTEMI) MYOCARDIAL INFARCTION Status: Acute Comment: Continue ASA, Coreg and Zocor, NSTEM Type II with medical mgmt (3) CAD (coronary artery disease) Code(s): I25.10 - ATHSCL HEART DISEASE OF [place] CORONARY ARTERY W/O ANG PCTRS Status: Chronic Comment: cath with severe multivessel disease, patent PATEL to diffusely diseased LAD, no other vein grafts (4) History of pancreatic cancer Code(s): Z85.07 - PERSONAL HISTORY OF MALIGNANT NEOPLASM OF PANCREAS Status: Chronic Comment: in remission (5) Diabetes mellitus type 2 in obese Code(s): E11.9 - TYPE 2 DIABETES MELLITUS WITHOUT COMPLICATIONS; E66.9 - OBESITY , UNSPECIFIED Status: Chronic (6) End stage renal disease Code(s): N18.6 - END STAGE RENAL DISEASE Status: Chronic Comment: PD per Renal service (7) Hypertension Code(s): I10 - ESSENTIAL (PRIMARY) HYPERTENSION Status: Chronic (8) Depression Code(s): F32.9 - MAJOR DEPRESSIVE DISORDER, SINGLE EPISODE, UNSPECIFIED Status : Acute - Plan * Pleural Effusion- he is s/p thoracentesis- possible due to SLE * CAD- this is being treated medically * DM- blood glucose is stable. * HTN- blood pressure is stable * Severe deconditioning- continue PT/OT * Depression- will start Zoloft * He can be transferred to Rehab today
[2018-10-11 15:03] VITALS: TEMP 98
[2018-10-11 15:32] LABS: #Eosinphils 0.1 thou/uL (0.0-0.7); #Lymphocytes 0.9 thou/uL (1.20-3.40); #Monocytes 0.5 thou/uL (0.11-0.59); #Neutrophils 14.2 thou/uL (1.40-6.50); %Eosinophils 0.5 % (0.0-10.0); %Lymphocytes 5.5 % (21.0-51.0); %Monocytes 3.1 % (0.0-10.0); %Neutrophils 90.8 % (42.0-75.0); Hemoglobin 8.3 g/dL (14.0-18.0); Mean Corpuscular HGB CONC 30.7 g/dL (32.0-36.0); Mean Corpuscular Hemoglobin 31.6 pg (27.0-31.0); Mean Platelet Volume 9.1 fL (7.4-10.4); Platelet Count 398 thou/uL (130-400); RBC Distribution Width 14.8 % (11.5-14.5); Red Blood Cell (RBC) Count 2.63 mill/uL (4.70-6.10); White Blood Cell (WBC) Count 15.6 thou/uL (4.8-10.8)
[2018-10-11 15:51] LABS: Anion Gap 21 mmol/L (10-20); BUN (Urea Nitrogen) 75 mg/dL (8.4-25.7); Calc. Creatinine Clearance 11 mL/min (70-130); Calcium 8.4 mg/dL (7.8-10.44); Carbon Dioxide 25 mmol/L (23-31); Chloride 95 mmol/L (98-107); Estimated GFR-MDRD 6; Glucose 177 mg/dL (80-115); Potassium 4.8 mmol/L (3.5-5.1); Sodium 136 mmol/L (136-145)
[2018-10-11 15:52] VITALS: BP 130/63
--- NOTE | 2018-10-12 02:50 | DIS ---
DATE OF ADMISSION: 10/02/2018 DATE OF DISCHARGE: 10/11/2018 PRIMARY CARE PHYSICIAN: Abdullahi Rome MD. DISCHARGE DISPOSITION: Inpatient rehab. DISCHARGE DIAGNOSES: 1. Jtz-ZI-kuyaoxxbr myocardial infarction, likely type 2. 2. Left pleural effusion. 3. End-stage renal disease, on peritoneal dialysis. 4. History of pancreatic cancer. 5. Diabetes mellitus type 2. 6. Sleep apnea. 7. History of ascending aortic aneurysm, status post repair. 8. Hyperlipidemia. DISCHARGE MEDICATIONS: Include; 1. Ambien 5 mg at bedtime p.r.n. 2. Ultram 50 mg q.6 hours as needed. 3. Zoloft 50 mg at bedtime. 4. Prednisone 40 mg daily. 5. MiraLAX 17 g daily. 6. Protonix 40 mg daily. 7. Levaquin 500 mg q.2 days. 8. Apresoline 100 mg p.o. t.i.d. 9. Epogen 10,000 units subcu as directed. 10. Aspirin 325 mg daily. 11. Tylenol 650 mg q.4. 12. Pravastatin 20 mg at bedtime. 13. Reglan 10 mg at bedtime. 14. Synthroid 150 mcg p.o. daily. 15. Fosrenol 1000 mg t.i.d. 16. Imdur extended release 30 mg at bedtime. 17. Carvedilol 12.5 mg twice daily. PROCEDURES DONE DURING THE ADMISSION: The patient had an emergent cardiac catheterization which demonstrated severe 3-vessel coronary artery disease. The [place] vessels were heavily calcified. There could not be a graft that was not able to be located, but there is mention of no competitive flow. The patient had an echocardiogram showing an ejection fraction estimated at 40% to 45%. There was grade 2/3 diastolic dysfunction. There is inferoseptal and anteroseptal thinning and akinesis. There is a dilated right ventricle with reduced RV systolic function. Elevated PA pressure of 42 mmHg. CODE STATUS: Full code. ALLERGIES: NO KNOWN DRUG ALLERGIES. HOSPITAL COURSE: Mr. Lau is a pleasant 63-year-old gentleman who presented to the emergency room with shortness of breath initially. He was found to have a non ST-segment elevated IN, which was thought to be due to demand ischemia. He underwent emergent cardiac catheterization. He was found to have 3-vessel coronary artery disease, but no area that was amenable to either stent or bypass. It was recommended that he undergo medical treatment. The patient developed a large pleural effusion a few days after being admitted to the hospital. Pulmonology was consulted and he underwent thoracentesis. They removed 1700 mL of fluid. This was sent for diagnostics. The fluid showed lymphocytic predominance as well as the STEFFANIE and double-stranded DNA were positive in the fluid and it recommended that he have a rheumatology evaluation in the outpatient setting. However, the findings are consistent with possible lupus. The patient was severely deconditioned as he has been in the hospital on a few occasions this year, and as such, he will be discharged to the inpatient rehab facility for reconditioning. He also expressed a sense that he has been feeling down and depressed lately, and for this reason, Zoloft was added to his medication regimen, and on 10/11/2018, he was able to be discharged to the inpatient rehab facility. Job ID: [id number]
== END 2018-10-11 18:59 | DRG 280 ==
LOC: ERS 00:50 → IMCU/EMU 04:15 → 2NO 10-05 09:37
PROVIDERS: ADMIT Hospitalist; ATTEND Hospitalist
PROC: 5A1D70Z Performance of Urinary Filtration, Intermittent, Less than 6 Hours Per Day (ICD-10-PCS; 2018-10-02)
PROC: 0W9B30Z Drainage of Left Pleural Cavity with Drainage Device, Percutaneous Approach (ICD-10-PCS; 2018-10-02)
PROC: BB4BZZZ Ultrasonography of Pleura (ICD-10-PCS; 2018-10-02)
PROC: 4A023N7 Measurement of Cardiac Sampling and Pressure, Left Heart, Percutaneous Approach (ICD-10-PCS; principal; 2018-10-04)
PROC: B2151ZZ Fluoroscopy of Left Heart using Low Osmolar Contrast (ICD-10-PCS; 2018-10-04)
PROC: B2131ZZ Fluoroscopy of Multiple Coronary Artery Bypass Grafts using Low Osmolar Contrast (ICD-10-PCS; 2018-10-04)
PROC: B2181ZZ Fluoroscopy of Left Internal Mammary Bypass Graft using Low Osmolar Contrast (ICD-10-PCS; 2018-10-04)
PROC: B2171ZZ Fluoroscopy of Right Internal Mammary Bypass Graft using Low Osmolar Contrast (ICD-10-PCS; 2018-10-04)
DX: I21.A1 Myocardial infarction type 2 (principal); N18.6 End stage renal disease; J96.01 Acute respiratory failure with hypoxia; I50.33 Acute on chronic diastolic (congestive) heart failure; J90 Pleural effusion, not elsewhere classified; I13.2 Hypertensive heart and chronic kidney disease with heart failure and with stage 5 chronic kidney disease, or end stage renal disease; G47.33 Obstructive sleep apnea (adult) (pediatric); E11.22 Type 2 diabetes mellitus with diabetic chronic kidney disease; I25.10 Atherosclerotic heart disease of native coronary artery without angina pectoris; E11.65 Type 2 diabetes mellitus with hyperglycemia; K21.9 Gastro-esophageal reflux disease without esophagitis; E03.9 Hypothyroidism, unspecified; D63.1 Anemia in chronic kidney disease; F32.9 Major depressive disorder, single episode, unspecified; E66.9 Obesity, unspecified; Z68.27 Body mass index [BMI] 27.0-27.9, adult; Z99.2 Dependence on renal dialysis; Z85.07 Personal history of malignant neoplasm of pancreas; Z79.4 Long term (current) use of insulin; Z95.1 Presence of aortocoronary bypass graft; Z90.49 Acquired absence of other specified parts of digestive tract; Z79.899 Other long term (current) drug therapy
CPT/HCPCS: 36415; 36416; 71045; 80048; 80053; 82150; 82553; 82945; 83520; 83605; 83615; 83880; 83986; 84157; 84478; 84484; 85025; 85060; 86038; 86200; 86225; 87040; 87070; 87116; 87205; 87206; 87340; 87804; 88112; 88305; 89051; 90945; 93005; 93306; 93459; 94640; 94760; 96365; 96366; 96367; 96372; C1769; G0257; J1644; J1650; J1815; J1956; J2543; J3010; J3370; J7050; J7512; J7620; J8597; Q5105; Q9967